=== PATIENT | male | born 1940 | race Caucasian/White ===

== ENCOUNTER → 2016-08-02 | Outpatient (CLI) | payer OTHER, MEDICARE ==
[~2016-08-02] MED LIST: IOPAMIDOL (ISOVUE 370) 75 ML BTL IV ONE
[2016-08-02 14:27] LABS: CREATININE 0.9 mg/dL (0.7-1.3); GLOMERULAR FILTRATION RATE > 60
--- NOTE | 2016-08-05 18:52 | CT ---
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 Pr etreatment aneurysm size is 7.5 x 6.9 cm. Technique: Thinly collimated multidetector helical data were obtained through the abdomen and pelvis during the administration of 100 mL of Isovue 370 IV contrast during the arterial phase of contrast enhancement. Repeat 5-mm images are obtained in venous phase. Images were then [facility] where multiplanar and three-dimensional reconstructions were performed by the ra diologist. Appropriate images were stored on PACS. Dose reduction techniques were utilized. Findings: CT Angiography: The thrombosed aneurysm sac currently measures 6.2 x 5.9 cm, decreased from the pre vious 6.6 x 6.1 cm. No evidence for endoleak in arterial or venous phase. The aorta is truly fairly d ilated, but the stent-graft has accommodated that fairly well. The limbs are not kinked. Femoral vess els are normal. Incidentally noted is critical stenosis of the proximal left SFA just after takeoff. This is unchange d. CT Abdomen and Pelvis: Lung bases are clear. Multiple hepatic cysts are unchanged. No evidence for m ass. Spleen, pancreas, adrenal glands, and kidneys are normal. No developing adenopathy or mass. Dive rticulosis is without CT evidence for diverticulitis. Prostate enlargement is again noted. No ascites or pleural effusions. Impression: Interval decrease in aneurysm sac size. No endoleak. Plan: Repeat CT angiogram follow up in May 2018, which will constitute a 4-year follow up. This was discussed with the patient today.
== END ==
LOC: FIMAGING 13:38
PROVIDERS: ATTEND Radiology Diagnostic Radiology
DX: Z09 Encounter for follow-up examination after completed treatment for conditions other than malignant neoplasm (principal); I71.4 Abdominal aortic aneurysm, without rupture

== ENCOUNTER 2017-06-03 03:11 | Emergency (ER) | payer OTHER, MEDICARE ==
--- NOTE | 2017-06-03 03:20 | CPEKG ---
Heart Rate: 88 RR Interval: 682 P-R Interval: 148 QRSD Interval: 106 QT Interval: 392 QTC Interval: 475 P [place]: 78 QRS [place]: 95 T Wave [place]: 67 EKG Severity - ABNORMAL ECG - EKG Impression: SINUS RHYTHM EKG Impression: INFERIOR INFARCT, OLD Electronically Signed By: Chasity Gerardo 04-Jun-2017 05:27:04
--- NOTE | 2017-06-03 03:21 | EDPHY ---
H & P HPI/ROS: HPI The patient presents with shortness of breath for the last 2 days, getting progressively worse, he was unable to sleep tonight so comes into the emergency department. He normally uses 2 L of oxygen at night, however he feels like he needs it all the time now. Yesterday he went to the [facility] to [facility] but could not tolerate being there because he was so short of breath so returned home. He says he has been coughing for years, however over the last 2 days the cough has been worse with sputum which is whitish which is unusual for him. As he does not have any chest pain, fever, leg swelling. He does not have any orthopnea.. He is not using any breathing treatments currently or taking any antibiotics. REVIEW OF SYSTEMS Constitutional: No fever, no chills. Eyes: No discharge. ENT: No sore throat. Cardiovascular: No chest pain, no palpitations. Respiratory: No cough, no shortness of breath. Gastrointestinal: No abdominal pain, no vomiting. Genitourinary: No hematuria. Musculoskeletal: No back pain. Skin: No rashes. Neurological: No headache. PMHx: COPD, CAD, systolic heart failure PHYSICAL General Appearance: Alert, no distress Eyes: Pupils equal and round no pallor or injection ENT, Mouth: Mucous membranes moist Respiratory: Slight tachypnea, mild retractions, diminished breath sounds throughout Cardiovascular: Regular rate and rhythm Gastrointestinal: Abdomen is soft and non-tender, no masses, bowel sounds normal Neurological: A&O, moves all extremities Skin: Warm and dry, no rashes Musculoskeletal: Neck is supple non tender Extremities: symmetrical, full range of motion Psychiatric: Patient is oriented X 3, there is no agitation Source: Patient, Family - Medical/Surgical History Hx Asthma: Yes Hx Chronic Respiratory Disease: Yes Hx Diabetes: No Hx Cardiac Disease: Yes Hx Renal Disease: No Hx Cirrhosis: No Hx Alcoholism: No Hx HIV/AIDS: No Hx Splenectomy or Spleen Trauma: No 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 Appy, COPD, HTN, Hyperlipidemia, PVD, CHF, smoker, CAD with stents, arthritis , polio - Social History Smoking Status: Current every day smoker Constitutional: Initial Vital Signs Temperature (C) 36.7 C 06/03/17 03:21 Heart Rate 88 11/14/17 03:21 Respiratory Rate 18 06/03/17 03:21 Blood Pressure 160/91 H 06/03/17 03:21 O2 Sat (%) 93 06/03/17 03:21 O2 Delivery Mode Nasal Cannula O2 (L/minute) 2 Allergies/Adverse Reactions: No Known Allergies Allergy (Verified 06/21/15 14:34) Home Medications: Medication Instructions Recorded Atorvastatin Calcium [Lipitor 40 40 mg PO DAILY #30 tab 03/18/14 mg (*)] Carvedilol [Coreg (*)] 6.25 mg PO BIDMEAL 06/07/14 Aspirin [Aspirin 81mg (*)] 81 mg PO DAILY 09/09/14 Breo Elipta Fluticasone 1 inh PUFF DAILY 09/09/14 100mcg/Vilanterol 25mcg Clopidogrel Bisulfate [Plavix (*)] 75 mg PO BID 09/09/14 Lisinopril [Zestril 5 mg (*)] 5 mg PO DAILY 09/09/14 Acetaminophen [Tylenol 325mg (*)] 650 mg PO Q4 PRN #40 tab 06/20/15 Albuterol [Proventil Inhaler HFA 2 puffs IH Q4 PRN #1 mdi 06/20/15 (*)] Azithromycin [Zithromax] 500 mg PO DAILY #3 tab 06/20/15 Cetirizine [ZyrTEC 10 mg (*)] 10 mg PO HS #30 tab 06/20/15 Cyclobenzaprine [Flexeril 10 MG 10 mg PO TID PRN #60 tab 06/20/15 (*)] Gabapentin [Neurontin 300 MG (*)] 300 mg PO HS #30 cap 06/20/15 Ipratropium/Albuterol [Combivent 1 inh IH QID #1 mdi 06/20/15 Respimat Inhal [place]] oxyCODONE IR [Oxycodone Ir (*)] 5 mg PO Q4 PRN #10 tab 06/20/15 Albuterol 17 gm IH Q4H PRN #1 aerosol 06/03/17 levOFLOXACIN [Levaquin] 500 mg PO DAILY #7 tablet 06/03/17 predniSONE [Prednisone] 40 mg PO DAILY 4 Days #16 tablet 06/03/17 Medical Decision Making - Diagnostics EKG Interpretation: EKG: Complete interpretation has been separately recorded in the [facility] archive. Summary impression: Normal sinus rhythm with Q-waves in the inferior leads Imaging Results: Chest x-ray two views shows no cardiomegaly, hyperinflation, no obvious infiltrate, interpreted by me, radiology interpretation is pending. CT chest angiogram shows no pulmonary embolism, discussed with Dr. Hammonds of Radiology. Imaging: I viewed and interpreted images myself Procedures: Bedside cardiac Ultrasound- performed and interpreted by me. Indication: Dyspnea Findings: Diminished ejection fraction, no pericardial effusion, no B lines bilaterally on lung ultrasound with a lines present, IVC is collapsible with respirations Impression: CHF without B lines, normal IVC Differential Diagnosis: 76-year-old male, history of systolic CHF, CAD, COPD presents from home with increased dyspnea over the last 1-2 days. This is associated with productive cough. Differential diagnosis includes COPD exacerbation, CHF exacerbation, ACS, less likely aortic dissection. In the emergency department, bedside ultrasound is performed which demonstrates no B lines present or blood thoracotomy IVC making COPD exacerbation most likely diagnosis. Plan for treatment with nebulizer, prednisone, antibiotics. In the emergency department, patient felt much better with the above treatments. He did have labs checked and had a D-dimer test which returned positive. BNP is slightly elevated as well. CT scan PE protocol was performed which demonstrated no pulmonary embolism or infiltrate. The patient felt well and would like to go home. He has home oxygen already in a pulse oximeter which he diligently monitors his oxygen saturations. I will discharge him with treatment with prednisone, antibiotics, albuterol. I have advised that he use 2 L of oxygen to maintain his sats in the 90-92% range and titrated it down once his saturations improved. 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 He is in agreement with this plan. - Data Points Laboratory Results: Laboratory Results 06/03/17 03:12 06/03/17 03:12 06/03/17 06/03/17 06/03/17 03:20 03:12 03:12 WBC 11.47 10^3/uL H 10^3/uL (3.80-9.50) RBC 5.16 10^6/uL 10^6/uL (4.40-6.38) Hgb 16.2 g/dL g/dL (13.7-17.5) Hct 47.9 % % (40.0-51.0) MCV 92.8 fL fL (81.5-99.8) MCH 31.4 pg pg (27.9-34.1) MCHC 33.8 g/dL g/dL (32.4-36.7) RDW 14.6 % % (11.5-15.2) Plt Count 165 10^3/uL 10^3/uL (150-400) MPV 9.6 fL fL (8.7-11.7) Neut % (Auto) 83.2 % H % (39.3-74.2) Lymph % (Auto) 6.6 % L % (15.0-45.0) [place] % (Auto) 9.4 % % (4.5-13.0) Eos % (Auto) 0.2 % L % (0.6-7.6) Baso % (Auto) 0.3 % % (0.3-1.7) Nucleat RBC Rel Count 0.0 % % (0.0-0.2) Absolute Neuts (auto) 9.53 10^3/uL H 10^3/uL (1.70-6.50) Absolute Lymphs (auto) 0.76 10^3/uL L 10^3/uL (1.00-3.00) Absolute Monos (auto) 1.08 10^3/uL H 10^3/uL (0.30-0.80) Absolute Eos (auto) 0.02 10^3/uL L 10^3/uL (0.03-0.40) Absolute Basos (auto) 0.04 10^3/uL 10^3/uL (0.02-0.10) Absolute Nucleated RBC 0.00 10^3/uL 10^3/uL (0-0.01) Immature Gran % 0.3 % % (0.0-1.1) Immature Gran # 0.04 10^3/uL 10^3/uL (0.00-0.10) D-Dimer 1.92 ug/mLFEU H ug/mLFEU (0.00-0.50) Sodium 146 mEq/L H mEq/L (134-144) Potassium 3.9 mEq/L mEq/L (3.5-5.2) Chloride 102 mEq/L mEq/L (97-110) Carbon Dioxide 32 mEq/l H mEq/l (22-31) Anion Gap 12 mEq/L mEq/L (8-16) BUN 18 mg/dL mg/dL (7-23) Creatinine 0.9 mg/dL mg/dL (0.7-1.3) Estimated GFR > 60 Glucose 112 mg/dL H mg/dL (70-100) Calcium 8.9 mg/dL mg/dL (8.5-10.4) Troponin I 0.014 ng/mL ng/mL (0.000-0.034) NT-Pro-B Natriuret Pep 515 pg/mL H pg/mL (0-450) Medications Given: Discontinued Medications Albuterol/Ipratropium (Duoneb) 3 ml IH EDNOW ONE Stop: 06/03/17 03:56 Last Admin: 06/03/17 04:06 Dose: 3 ml Levofloxacin (Levaquin) 750 mg PO EDNOW ONE PRN Reason: Protocol Stop: 06/03/17 03:56 Last Admin: 06/03/17 04:06 Dose: 750 mg Prednisone (Prednisone) 60 mg PO EDNOW ONE Stop: 06/03/17 03:56 Last Admin: 06/03/17 04:06 Dose: 60 mg Departure - Departure Disposition: Home, Routine, Self-Care Clinical Impression: Chronic obstructive pulmonary disease with acute exacerbation Condition: Good Instructions: COPD (Chronic Obstructive Pulmonary Disease) (ED) Additional Instructions: Please make sure to take the medications as prescribed. You will need to wear 2 L of oxygen until your feeling better. I recommend that you follow up with your primary care doctor in 1-2 days for recheck of your oxygen level and your lungs. Referrals: Hollie Teran MD [Primary Care Provider] - As per Instructions Prescriptions: Albuterol 17 gm IH Q4H PRN #1 aerosol PRN Reason: shortness of breath levOFLOXACIN [Levaquin] 500 mg PO DAILY #7 tablet predniSONE [Prednisone] 40 mg PO DAILY 4 Days #16 tablet
[2017-06-03 03:26] VITALS: TEMP 98.1
[2017-06-03] MEDS ORDERED: IPRATROPIUM/ALBUTEROL 3 ML DEYVIAL IH ONE (03:55)
[2017-06-03] MEDS ORDERED: predniSONE 20 MG TAB PO ONE (03:55)
[2017-06-03 03:57] LABS: ANION GAP 12 mEq/L (8-16); CALCIUM 8.9 mg/dL (8.5-10.4); CARBON DIOXIDE 32 mEq/l (22-31); CHLORIDE 102 mEq/L (97-110); CREATININE 0.9 mg/dL (0.7-1.3); GLOMERULAR FILTRATION RATE > 60; GLUCOSE 112 mg/dL (70-100); POTASSIUM 3.9 mEq/L (3.5-5.2); SODIUM 146 mEq/L (134-144)
[2017-06-03 04:05] LABS: % IMMATURE GRANULYOCYTES 0.3 % (0.0-1.1); ABSOLUTE IMMATURE GRANULOCYTES 0.04 10^3/uL (0.00-0.10); ADD DIFF? NO; ADD MORPH? NO; ADD SCAN? NO; ATYPICAL LYMPHOCYTE FLAG 0 (0-99); FRAGMENT RBC FLAG 0 (0-99); HEMATOCRIT 47.9 % (40.0-51.0); HEMOGLOBIN 16.2 g/dL (13.7-17.5); LEFT SHIFT FLG 0 (0-99); LIPEMIA HEMOLYSIS FLAG 90 (0-99); MEAN CELL HEMOGLOBIN 31.4 pg (27.9-34.1); MEAN CELL HEMOGLOBIN CONCENTR. 33.8 g/dL (32.4-36.7); MEAN CELL VOLUME 92.8 fL (81.5-99.8); MEAN PLATELET VOLUME 9.6 fL (8.7-11.7); PLATELET CLUMPS FLAG 20 (0-99); PLATELET COUNT 165 10^3/uL (150-400); RED BLOOD CELL COUNT 5.16 10^6/uL (4.40-6.38); RED CELL DISTRIBUTION WIDTH 14.6 % (11.5-15.2)
[2017-06-03 04:09] LABS: TROPONIN I 0.014 ng/mL (0.000-0.034)
[2017-06-03] MEDS ORDERED: IOPAMIDOL (ISOVUE 370) 100 ML BTL IV ONE (05:05)
[2017-06-03 06:03] VITALS: BP 107/65; PULSE 80; RESP 19; O2SAT 93
== END 2017-06-03 06:18 | disposition home or self-care (01) ==
DX: J44.1 Chronic obstructive pulmonary disease with (acute) exacerbation (principal); I25.10 Atherosclerotic heart disease of native coronary artery without angina pectoris; I11.0 Hypertensive heart disease with heart failure; I50.9 Heart failure, unspecified; F17.200 Nicotine dependence, unspecified, uncomplicated; Z79.82 Long term (current) use of aspirin; Z95.5 Presence of coronary angioplasty implant and graft
CPT/HCPCS: 71020; 71275; 93005; 99285; Q9967

== ENCOUNTER 2017-08-16 12:36 | Inpatient (IN) | payer OTHER, MEDICARE ==
--- NOTE | 2017-08-16 12:53 | CPEKG ---
Heart Rate: 152 RR Interval: 395 P-R Interval: 55 QRSD Interval: 98 QT Interval: 338 QTC Interval: 538 P [place]: 0 QRS [place]: 101 T Wave [place]: 258 EKG Severity - ABNORMAL ECG - EKG Impression: RIGHT AXIS DEVIATION EKG Impression: A flutter with 2-1 block Electronically Signed By: Zeke Lockhart 16-Aug-2017 13:04:19
[2017-08-16] MEDS ORDERED: methylPREDNISolone SOD SUCC 125 MG/2 ML VIAL IVP ONE (13:08)
[2017-08-16] MEDS ORDERED: IPRATROPIUM/ALBUTEROL 3 ML DEYVIAL IH ONE (13:08)
[2017-08-16] MEDS ORDERED: DILTIAZEM 25 MG/5 ML VIAL IVP ONE (13:11)
--- NOTE | 2017-08-16 13:15 | EDPHY ---
H & P Stated Complaint: SOB and chest discomfort starting Time Seen by Provider: 08/16/17 13:00 HPI/ROS: CHIEF COMPLAINT: Shortness of breath HISTORY OF PRESENT ILLNESS: The patient is a 76-year-old man with a history of COPD who wears oxygen at night also a history of CHF with ejection fraction 20% , coronary artery disease with 5 stents and a previously repaired AAA. Patient states that over the last 3 days he has become increasingly short of breath and hypoxic at home without his oxygen. His states that they have been trying to get a nebulizer for months but were unable to until yesterday. They used it once this morning with moderate improvement. He denies recent fevers or cold symptoms. He denies chest pain. He is tachycardic and denies ever having had an arrhythmia before. He has not had any leg pain or swelling. No edema. REVIEW OF SYSTEMS: Constitutional: denies: chills, fever, recent illness, recent injury EENTM: denies: blurred vision, double vision, nose congestion Respiratory: See HPI Cardiac: denies: chest pain, irregular heart rate, lightheadedness, palpitations Gastrointestinal/Abdominal: denies: abdominal pain, diarrhea, nausea, vomiting, blood streaked stools Genitourinary: denies: dysuria, frequency, hematuria, pain Musculoskeletal: denies: joint pain, muscle pain Skin: denies: lesions, rash, jaundice, bruising Neurological: denies: headache, numbness, paresthesia, tingling, dizziness, weakness Hematologic/Lymphatic: denies: blood clots, easy bleeding, easy bruising Immunologic/allergic: denies: HIV/AIDS, transplant EXAM: GENERAL: Well-appearing, well-nourished and in no acute distress. HEAD: Atraumatic, normocephalic. EYES: Pupils equal round and reactive to light, extraocular movements intact, sclera anicteric, conjunctiva are normal. ENT: TMs normal, nares patent, oropharynx clear without exudates. Moist mucous membranes. NECK: Normal range of motion, supple without lymphadenopathy or JVD. LUNGS: Bilateral expiratory wheezes, no crackles HEART: Tachycardic but regular rhythm without murmurs, rubs or gallops. ABDOMEN: Soft, nontender, normoactive bowel sounds. No guarding, no rebound. No masses appreciated. BACK: No CVA tenderness, no spinal tenderness, step-offs or deformities EXTREMITIES: Normal range of motion, no pitting or edema. No clubbing or cyanosis. No edema NEUROLOGICAL: Cranial nerves II through XII grossly intact. Normal speech, normal gait. 5/5 strength, normal movement in all extremities, normal sensation PSYCH: Normal mood, normal affect. SKIN: Warm, dry, normal turgor, no visible rashes or lesions. 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 Appy, COPD, HTN, Hyperlipidemia, PVD, CHF, smoker, CAD with stents, arthritis , polio - Social History Smoking Status: Current every day smoker Alcohol Use: Sober Constitutional: Initial Vital Signs Temperature (C) 36.5 C 08/16/17 12:40 Heart Rate 147 H 08/16/17 12:40 Respiratory Rate 20 08/16/17 12:40 Blood Pressure 115/93 H 08/16/17 12:40 O2 Sat (%) 85 L 08/16/17 12:40 O2 Delivery Mode Nasal Cannula O2 (L/minute) 2 Allergies/Adverse Reactions: No Known Allergies Allergy (Verified 08/16/17 12:39) Home Medications: Medication Instructions Recorded Aspirin EC [Aspirin EC 81 mg (*)] 81 mg PO DAILY@08/16/17 Atorvastatin Calcium [Lipitor 80 80 mg PO DAILY@08/16/17 mg] Carvedilol [Coreg (*)] 6.25 mg PO BIDMEAL 08/16/17 Docusate Sodium [Colace 100 MG (*)] 100 mg PO DAILY@08/16/17 Finasteride [Propecia] 1 mg PO DAILY@08/16/17 Ipratropium/Albuterol [Duoneb (*)] 3 ml IH TID PRN 08/16/17 Lisinopril [Zestril 10 mg (*)] 10 mg PO DAILY@08/16/17 Sertraline HCl [Zoloft 50mg (*)] 50 mg PO DAILY@12 08/16/17 Medical Decision Making - Diagnostics EKG Interpretation: An EKG obtained and was read and documented in trace view. Please see trace view for full reading and report. Atrial flutter with 2-1 block Imaging Results: Imaging Impressions Chest X-Ray 08/16/17 13:09 Impression: COPD/emphysema with bronchitis, similar to the previous study. Imaging: Discussed imaging studies w/ house calls nurse Radiologist ED Course/Re-evaluation: The patient's x-ray does not look edematous. He does not have extremity edema. He persists in having wheezing and heart rate of 150. Will treat him with another neb. 2:25 p.m. the patient still is feeling about the same. He has received 2 nebs as well as some diltiazem. His pressure dropped with diltiazem and required a 500 cc bolus. He has been mentating well throughout. I will admit to the hospital service. I suspect that the new a flutter is secondary to the COPD exacerbation. 2:55 p.m. I discussed the case with Dr. Deluna who will admit to the medical service. Differential Diagnosis: Partial list of the Differential diagnosis considered include but were not limited to; COPD exacerbation, atrial flutter, SVT, pulmonary edema and although unlikely based on the history and physical exam, I also considered acute coronary disease, dissection. - Data Points Laboratory Results: Laboratory Results 08/16/17 13:00 08/16/17 13:00 08/16/17 08/16/17 08/16/17 13:00 13:00 13:00 WBC 5.85 10^3/uL 10^3/uL (3.80-9.50) RBC 4.67 10^6/uL 10^6/uL (4.40-6.38) Hgb 14.7 g/dL g/dL (13.7-17.5) Hct 44.4 % % (40.0-51.0) MCV 95.1 fL fL (81.5-99.8) MCH 31.5 pg pg (27.9-34.1) MCHC 33.1 g/dL g/dL (32.4-36.7) RDW 15.5 % H % (11.5-15.2) Plt Count 185 10^3/uL 10^3/uL (150-400) MPV 10.1 fL fL (8.7-11.7) Neut % (Auto) 74.4 % H % (39.3-74.2) Lymph % (Auto) 12.8 % L % (15.0-45.0) [place] % (Auto) 10.4 % % (4.5-13.0) Eos % (Auto) 1.7 % % (0.6-7.6) Baso % (Auto) 0.2 % L % (0.3-1.7) Nucleat RBC Rel Count 0.0 % % (0.0-0.2) Absolute Neuts (auto) 4.35 10^3/uL 10^3/uL (1.70-6.50) Absolute Lymphs (auto) 0.75 10^3/uL L 10^3/uL (1.00-3.00) Absolute Monos (auto) 0.61 10^3/uL 10^3/uL (0.30-0.80) Absolute Eos (auto) 0.10 10^3/uL 10^3/uL (0.03-0.40) Absolute Basos (auto) 0.01 10^3/uL L 10^3/uL (0.02-0.10) Absolute Nucleated RBC 0.00 10^3/uL 10^3/uL (0-0.01) Immature Gran % 0.5 % % (0.0-1.1) Immature Gran # 0.03 10^3/uL 10^3/uL (0.00-0.10) PT 13.2 SEC SEC (12.0-15.0) INR 0.98 (0.83-1.16) APTT 34.3 SEC SEC (23.0-38.0) Sodium 148 mEq/L H mEq/L (135-145) Potassium 4.0 mEq/L mEq/L (3.5-5.2) Chloride 107 mEq/L mEq/L (97-110) Carbon Dioxide 29 mEq/l mEq/l (22-31) Anion Gap 12 mEq/L mEq/L (8-16) BUN 24 mg/dL H mg/dL (7-23) Creatinine 1.0 mg/dL mg/dL (0.7-1.3) Estimated GFR > 60 Glucose 109 mg/dL H mg/dL (70-100) Calcium 8.9 mg/dL mg/dL (8.5-10.4) Troponin I < 0.012 ng/mL ng/mL (0.000-0.034) NT-Pro-B Natriuret Pep 3610 pg/mL H pg/mL (0-450) Microbiology Results: MICROBIOLOGY 08/16/17 13:40 Nasal, Sinus - Swab Respiratory Panel (PCR) - Final Coronavirus Hku1 Detected Medications Given: Albuterol/Ipratropium (Duoneb) 3 ml IH QID SHARONDA Stop: 02/12/18 15:59 Last Admin: 08/16/17 20:49 Dose: Not Given Carvedilol (Coreg) 6.25 mg PO [facility]MEAL [facility] Stop: 02/12/18 17:59 Last Admin: 08/16/17 19:14 Dose: 6.25 mg Discontinued Medications Albuterol (Proventil Neb) 3 ml IH EDNOW ONE Stop: 08/16/17 13:51 Last Admin: 08/16/17 14:20 Dose: 3 ml Albuterol/Ipratropium (Duoneb) 3 ml IH EDNOW ONE Stop: 08/16/17 13:09 Last Admin: 08/16/17 13:31 Dose: 3 ml Diltiazem HCl (Cardizem 25 Mg/5 Ml Vial) 10 mg IVP EDNOW ONE Stop: 08/16/17 13:12 Last Admin: 08/16/17 13:31 Dose: 10 mg Enoxaparin Sodium (Lovenox) 60 mg SC EDNOW ONE Stop: 08/16/17 14:27 Last Admin: 08/16/17 15:11 Dose: 60 mg Furosemide (Lasix Injection) 20 mg IVP ONCE ONE Stop: 08/16/17 18:02 Last Admin: 08/16/17 19:14 Dose: 20 mg Sodium Chloride (Ns) 500 mls @ 1,000 mls/hr IV EDNOW ONE PRN Reason: Protocol Stop: 08/16/17 14:19 Last Admin: 08/16/17 14:12 Dose: 500 mls Diltiazem HCl 125 mg/ Dextrose 125 mls @ 0 mls/hr IV EDNOW ONE; As Directed PRN Reason: Protocol Stop: 08/16/17 17:49 Last Admin: 08/16/17 18:07 Dose: 125 mls Methylprednisolone Sodium Succinate (Solu-Medrol) 125 mg IVP EDNOW ONE Stop: 08/16/17 13:09 Last Admin: 08/16/17 13:31 Dose: 125 mg Departure - Departure Disposition: [facility] Inpatient Acute Clinical Impression: Chronic obstructive pulmonary disease with acute exacerbation Atrial flutter Qualifiers: Atrial flutter type: typical Qualified Code(s): I48.3 - Typical atrial flutter Condition: Fair
[2017-08-16 13:18] LABS: PLATELET COUNT 185 10^3/uL (150-400)
[2017-08-16 13:24] LABS: INR 0.98 (0.83-1.16); PROTIME(PATIENT) 13.2 SEC (12.0-15.0)
[2017-08-16] MEDS ORDERED: ALBUTEROL 3 ML DEYVIAL IH ONE (13:50)
[2017-08-16] MEDS ORDERED: NS 500 ML IV ONE (13:50)
[2017-08-16] MEDS ORDERED: ENOXAPARIN 60 MG/0.6 ML SYR SC ONE (14:26)
[2017-08-16] MEDS ORDERED: ACETAMINOPHEN 325 MG TAB PO PRN (14:58)
[2017-08-16] MEDS ORDERED: ONDANSETRON 4 MG/2 ML VIAL IVP PRN (14:58)
[2017-08-16] MEDS: IPRATROPIUM/ALBUTEROL 3 ML DEYVIAL IH SCH ×2 (16:50→20:49)
[2017-08-16] MEDS ORDERED: DILTIAZEM 125 MG in D5W 125 ML IV ONE (17:48)
--- NOTE | 2017-08-16 17:52 | PDGENHP ---
History and Physical History and Physical: CC: Worsening dyspnea for 2-3 days HISTORY: This patient with both heart and lung disease still smoking comes into the ER with worsening dyspnea for 2-3 days. He has chronic exertional dyspnea and uses oxygen 2 L at night. At this point he has progressed to rest dyspnea and says it is hard to walk a half way across the room. He has an uneasy feeling like his heart is doing something different but does not have any discomfort or anything that sounds like angina. There is no pleuritic pain and there is no pain or swelling in his legs. He has no cough, fevers, upper respiratory symptoms, abdominal discomfort or bloating, nausea, sweats. He has a history of COPD and still smokes 3/4 pack cigarettes daily He has a history of coronary disease with 5 stents. He has a history of atrial fibrillation and had been cardioverted in the past, but is not on anticoagulants and I cannot discern the reason why. He is on some carvedilol. He cannot recall when his last stress test or his last echocardiogram were but it sounds like he has poor systolic function. The only echocardiogram I have is from several years ago here showing an EF of 15-20%. 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 I have reviewed the list and ordered appropriate medicines. PHYSICAL EXAMINATION: Vital Signs: Heart rate at 150, stable blood pressure, respirations without fast no fever Distribution Tech: Rapid atrial flutter Examination: General: alert, oriented, good mentation, relaxed Skin: warm, dry, good color, no rash no cyanosis HEENT: normal Neck: no mass JVD is present Resps: relaxed Lungs: clear breath sounds though they are extremely diminished Heart: His pulse is rapid and regular, am actually unable to auscultate his heart tones Abdomen: soft, nondistended, nontender, +BS, no mass Upper Extremities: normal Lower Extremities: edema 1+ pitting at both ankles , warm No Bleeding or bruising Neurologic: normal speech/language, normal md ophthalmologist, no focal weakness IV site: looks normal LABORATORY DATA: CBC and basic met panel are unremarkable BNP is at 3000 Troponin normal coagulation studies normal RADIOLOGY STUDIES: Chest x-ray shows evidence of COPD and possible cephalization of blood vessels but no effusions no alveolar edema or infiltrates; this is my personal review of his chest x-ray images in the ER 12 LEAD EKG: My reading of tracing in the ER is rapid atrial flutter at 1:50 a.m. with no ischemic or injury pattern ASSESSMENT: -acute symptomatic hypoxemic respiratory failure -rapid atrial flutter with a history of atrial fibrillation, on beta-lilian but no anticoagulant, reason for and no anticoagulation is unknown -acute congestive heart failure, systolic and right-sided; history of ischemic cardiomyopathy with stents, last echocardiogram on record here several years ago ejection fraction 15-20% unclear when his last outpatient echo was with Dr. Orta and [place] -CAD [address] Orta, no symptoms or EKG signs of ischemia specifically at this point, unclear when his last stress test was but it sounds like quite sometime ago -COPD with chronic hypoxemic respiratory failure on nocturnal oxygen at home; probably stable or near stable at this time could not rule out mild exacerbation -ongoing tobacco abuse Apparently the patient was given a 10 mg bolus of diltiazem in the ER and had a significant decrease in blood pressure with that. Will need to watch his blood pressure very closely and I believe that his cardiomyopathy is probably causing his shortness of breath in the setting of his rapid atrial flutter. He will clearly need rate controlled he will tolerate low blood pressures. I will start with gentle diltiazem drip and monitor closely change plan if we do not have success controlling his rate and blood pressure. A repeat echocardiogram to look at his right and left heart function and pressures will be important, and I will review with Cardiology as I think is probably reasonable be looking at a myocardial perfusion imaging stress test here as well. This would have to be a Lexiscan as he would be unable to walk. I did address tobacco cessation with the patient and not clear that he is ready to engage in that at this point. Will continue counseling while he is here I did discuss with him and his and they both would like him to be a full cor at this time. They did seem to comprehend this discussion well. PLANS: -inpatient admission to PCU for this patient at high risk with potential for multiple complications and requiring multiple studies ongoing monitoring -cardiology consultation -attempt rate control with diltiazem drip watching his blood pressure very closely -continue his beta-lilian -review with Cardiology Clinic when available why he is not on anticoagulant -statin therapy -he will be on full dose anticoagulation for his a flutter at this time which should cover him for DVT prophylaxis as well I have reviewed the patient's case in detail with Dr. Zeke Lockhart I have reviewed the patient's past medical records as part of this assessment, including previous hospital admission records lab tests and EKGs
[2017-08-16] MEDS ORDERED: DILTIAZEM 125 MG in D5W 125 ML IV SCH (18:00)
[2017-08-16] MEDS ORDERED: IPRATROPIUM/ALBUTEROL 3 ML DEYVIAL IH PRN (18:00)
[2017-08-16] MEDS ORDERED: FUROSEMIDE 20 MG/2 ML VIAL IVP ONE (18:01)
--- NOTE | 2017-08-16 18:02 | PDGENHP ---
History and Physical History and Physical: CC: Worsening dyspnea for 2-3 days HISTORY: This patient with both heart and lung disease still smoking comes into the ER with worsening dyspnea for 2-3 days. He has chronic exertional dyspnea and uses oxygen 2 L at night. At this point he has progressed to rest dyspnea and says it is hard to walk a half way across the room. He has an uneasy feeling like his heart is doing something different but does not have any discomfort or anything that sounds like angina. There is no pleuritic pain and there is no pain or swelling in his legs. He has no cough, fevers, upper respiratory symptoms, abdominal discomfort or bloating, nausea, sweats. He has a history of COPD and still smokes 3/4 pack cigarettes daily He has a history of coronary disease with 5 stents. He has a history of atrial fibrillation and had been cardioverted in the past, but is not on anticoagulants and I cannot discern the reason why. He is on some carvedilol. He cannot recall when his last stress test or his last echocardiogram were but it sounds like he has poor systolic function. The only echocardiogram I have is from several years ago here showing an EF of 15-20%. 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 I have reviewed the list and ordered appropriate medicines. PHYSICAL EXAMINATION: Vital Signs: Heart rate at 150, stable blood pressure, respirations without fast no fever Car Sweeper: Rapid atrial flutter Examination: General: alert, oriented, good mentation, relaxed Skin: warm, dry, good color, no rash no cyanosis HEENT: normal Neck: no mass JVD is present Resps: relaxed Lungs: clear breath sounds though they are extremely diminished Heart: His pulse is rapid and regular, am actually unable to auscultate his heart tones Abdomen: soft, nondistended, nontender, +BS, no mass Upper Extremities: normal Lower Extremities: edema 1+ pitting at both ankles , warm No Bleeding or bruising Neurologic: normal speech/language, normal 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 with no ischemic or injury pattern ASSESSMENT: -acute symptomatic hypoxemic respiratory failure -rapid atrial flutter with a history of atrial fibrillation, on beta-lilian but no anticoagulant, reason for and no anticoagulation is unknown -acute congestive heart failure, systolic and right-sided; history of ischemic cardiomyopathy with stents, last echocardiogram on record here several years ago ejection fraction 15-20% unclear when his last outpatient echo was with Dr. Orta and [place] -CAD [address] Orta, no symptoms or EKG signs of ischemia specifically at this point, unclear when his last stress test was but it sounds like quite sometime ago -COPD with chronic hypoxemic respiratory failure on nocturnal oxygen at home; probably stable or near stable at this time could not rule out mild exacerbation -ongoing tobacco abuse Apparently the patient was given a 10 mg bolus of diltiazem in the ER and had a significant decrease in blood pressure with that. Will need to watch his blood pressure very closely and I believe that his cardiomyopathy is probably causing his shortness of breath in the setting of his rapid atrial flutter. He will clearly need rate controlled he will tolerate low blood pressures. I will start with gentle diltiazem drip and monitor closely change plan if we do not have success controlling his rate and blood pressure. A repeat echocardiogram to look at his right and left heart function and pressures will be important, and I will review with Cardiology as I think is probably reasonable be looking at a myocardial perfusion imaging stress test here as well. This would have to be a Lexiscan as he would be unable to walk. I did address tobacco cessation with the patient and not clear that he is ready to engage in that at this point. Will continue counseling while he is here I did discuss with him and his and they both would like him to be a full cor at this time. They did seem to comprehend this discussion well. PLANS: -inpatient admission to PCU for this patient at high risk with potential for multiple complications and requiring multiple studies ongoing monitoring -cardiology consultation -attempt rate control with diltiazem drip watching his blood pressure very closely -will give one dose of lasix iv now and reassess fluid status and dyspnea in am (not on diuretic at home) -continue his beta-lilian -review with Cardiology Clinic when available why he is not on anticoagulant -statin therapy -he will be on full dose anticoagulation for his a flutter at this time which should cover him for DVT prophylaxis as well -ongoing smoking counseling -full cor per his wish I have reviewed the patient's case in detail with Dr. Zeke Lockhart I have reviewed the patient's past medical records as part of this assessment, including previous hospital admission records lab tests and EKGs
--- NOTE | 2017-08-16 18:29 | PDMN ---
Medical Necessity Medical necessity: C/M review: est. > 2 MN LOS for eval and TX of acute - rapid atrial flutter, systolic and right sided CHF, symptomatic hypoxemic respiratory failure, requiring IV Lasix x 1, planned echocardiogram, Cardiology cvonsult, ongoing IV Dilitazem infusion, Duonebs, cardiac monitoring, pulse oximetry, supplemental O2, comorbid CAD with [address], COPD with chronic hypoxemic respiratory failure on nocturnal o2 at home, ongoing tobacco abuse, ischemic cardiomyopathy with EF 15-20%, history of atrial fibrillation per H/P.
[2017-08-16] MEDS: CARVEDILOL 6.25 MG TAB PO SCH (19:14)
[2017-08-17 04:23] LABS: PLATELET COUNT 184 10^3/uL (150-400)
--- NOTE | 2017-08-17 05:31 | CPEKG ---
Heart Rate: 129 RR Interval: 465 QRSD Interval: 106 QT Interval: 341 QTC Interval: 500 QRS [place]: 86 EKG Severity - ABNORMAL ECG - EKG Impression: ATRIAL FLUTTER, A-RATE 288 EKG Impression: INCOMPLETE RIGHT BUNDLE BRANCH BLOCK EKG Impression: LOW VOLTAGE IN FRONTAL LEADS EKG Impression: NONSPECIFIC T ABNORMALITIES, LATERAL LEADS EKG Impression: PROLONGED QT INTERVAL EKG Impression: COMPARED WITH 07/22/2017 NO SIGNIFICANT CHANGE Electronically Signed By: Delores Rosales 17-Aug-2017 13:14:58
[2017-08-17] MEDS: IPRATROPIUM/ALBUTEROL 3 ML DEYVIAL IH SCH (05:34)
[2017-08-17] MEDS: LEVALBUTEROL 1.25 MG/3 ML DEYVIAL IH PRN ×2 (06:06→14:17)
[2017-08-17] MEDS ORDERED: ENOXAPARIN 60 MG/0.6 ML SYR SC SCH (09:00)
--- NOTE | 2017-08-17 10:40 | ECHO ---
[email or web address] [address] [address] Main: [phone] Fax: Transthoracic Echocardiogram Name: MARCEL ROGERS MR#: [id number] Study Date: 08/17/2017 Study Time: 09:13 AM Date of : 1940 Age: 76 year(s) Height: 165.1 cm (65 in.) Weight: 58.97 kg (130 lb.) BSA: 1.65 m2 Gender: Male Examination: Echo Indication: cardiomyopathy and a flutter Image Quality: Adequate Contrast: Requested by: Jaspal Deluna BP: 108 mmHg/79 mmHg Heart Rate: 138 bpm Rhythm: Atrial flutter Indication: cardiomyopathy and a flutter Procedure Staff Set Up Mechanic Stamping Machines: Rosaline Gunderson [facility] Reading Physician: Delores Rosales Requesting Provider: Conclusions: Normal size left ventricle. Mild to moderate LVH. Mildly reduced systolic LV function. EF is 40 %. Mild global hypokinesis. Intermittent septal dyskinesis. Normal size right ventricle. Normal RV function. The left atrium is severely dilated. The right atrium is mildly to moderately dilated. Trivial tricuspid valve regurgitation. Trivial pericardial effusion. Compared with 03/16/2014 ejection fraction has improved from 15-20%. Measurements: Chambers Valvular Assessment AV/MV Valvular Assessment TV/PV Normal Normal Normal Name Value Range Name Value Range Name Value Range Ao Ester (MM): 3.3 cm (2.2 cm-3.7 AV Vmax: 1.10 m/s (1 m/s-1.7 PV Vmax: 0.67 m/s (0.6 m/s-0.9 cm) m/s) m/s) IVSd (2D): 1.3 cm (0.6 cm-1.1 AV maxP mmHg ( - ) PV PGmax: 2 mmHg ( - ) cm) LVOT Vmax: 0.73 m/s (0.7 m/s-1.1 LVDd (2D): 4.5 cm (4.2 cm-5.9 m/s) cm) MV E Vmax: 0.85 m/s ( - ) LVDs (2D): 3.7 cm (2.1 cm-4 MV A Vmax: 1.05 m/s ( - ) cm) MV E/A: 0.81 ( - ) LVPWd (2D): 1.0 cm (0.6 cm-1 cm) LVEF (BP): 40 % (>=55 %) RVDd(2D): 2.4 cm (1.9 cm-3.8 cmmm) Patient: MARCEL ROGERS Study Date: 08/17/2017 Page 1 of 2 09:13 AM Continued Measurements: Chambers Valvular Assessment TV/PV Name Value Name Value LADs Lon.4 cm CVP (est.): 10 mmHg LA Area: 26.2 cm2 LA Volume: 75 ml LA Volume Index: 45.5 ml/m2 TAPSE: 1.1 cm RA Area: 21.8 cm2 Additional Vessels Name Value Ao Ascendin.0 cm Findings: Left Ventricle: Normal size left ventricle. Mild to moderate LVH. Mildly reduced systolic LV function. EF is 40 %. Mild global hypokinesis. Intermittent septal dyskinesis. Right Ventricle: Normal size right ventricle. Normal RV function. Left Atrium: The left atrium is severely dilated. Right Atrium: The right atrium is mildly to moderately dilated. Mitral Valve: The mitral valve is normal in appearance and function. There is mild thickening of the mitral valve leaflets. Mild mitral annular calcification. Trivial mitral valve regurgitation. No mitral stenosis is present. Aortic Valve: The aortic valve is tri-leaflet and functions normally. There is no significant aortic valve regurgitation. No aortic valve stenosis is present. Tricuspid Valve: The tricuspid valve is normal in appearance and function. Trivial tricuspid valve regurgitation. Pulmonary artery pressure is not obtained due to inadequate TR jet. Pulmonic Valve: Pulmonary valve not well visualized. Aorta: Normal size aortic root measuring 3.3 cm. Normal size ascending aorta measuring 3.0 cm. IVC: The IVC is dilated. Pericardium: Trivial pericardial effusion. (No Signature Object) Patient: MARCEL ROGERS Study Date: 08/17/2017 Page 2 of 2 09:13 AM [id number]
[2017-08-17] MEDS: DOCUSATE SODIUM 100 MG CAP PO SCH (10:58)
[2017-08-17] MEDS: NICOTINE 14 MG/24 HR PATCH TD SCH (10:58)
[2017-08-17] MEDS: ASPIRIN EC 81 MG TAB PO SCH (10:58)
[2017-08-17] MEDS: SERTRALINE HCL 50 MG TAB PO SCH (10:59)
--- NOTE | 2017-08-17 11:44 | CPEKG ---
Heart Rate: 135 RR Interval: 444 QRSD Interval: 108 QT Interval: 360 QTC Interval: 540 QRS [place]: 71 T Wave [place]: 242 EKG Severity - ABNORMAL ECG - EKG Impression: ATRIAL FLUTTER WITH 2:1 AV BLOCK EKG Impression: IRBBB AND LPFB EKG Impression: NONSPECIFIC T ABNORMALITIES, LATERAL LEADS EKG Impression: PROLONGED QT INTERVAL EKG Impression: Compared with 08/09/2017 at 520 minutes a.m. no significant change Electronically Signed By: Delores Rosales 17-Aug-2017 13:14:00
[2017-08-17] MEDS ORDERED: NITROGLYCERIN 0.4 MG BTL SL PRN (11:45)
[2017-08-17] MEDS: ATORVASTATIN CALCIUM 40 MG TAB PO SCH (12:00)
[2017-08-17] MEDS ORDERED: DIGOXIN 500 MCG/2 ML AMP IVP ONE ×2 (14:05→20:00)
[2017-08-17] MEDS ORDERED: FUROSEMIDE 20 MG/2 ML VIAL IVP ONE (14:15)
[2017-08-17] MEDS: LISINOPRIL 10 MG TAB PO SCH (14:49)
[2017-08-17] MEDS: Finasteride [Propecia] 1 MG PO SCH (15:02)
--- NOTE | 2017-08-17 15:05 | GCON ---
[f rep st] CONSULTATION DATE OF CONSULTATION: 08/17/2017 PRIMARY COMPANY PILOT: Robert Orta MD CHIEF COMPLAINT: Atrial flutter. HISTORY OF PRESENT ILLNESS: We were asked by Dr. Talbert to visit with the patient. He is a 76-year -old male with a history of coronary disease, status post multivessel PCI, atrial flutter with histor y of cardioversion in 2013, mixed cardiomyopathy, COPD on oxygen, and ongoing tobacco abuse. He was admitted through the ER on August 16 with increasing dyspnea and minimally productive cough. He was diagnosed with coronavirus. He was found to be in atrial flutter with rapid ventricular response an d we were asked to consult. Upon my evaluation, he reports feeling dyspneic. He has intermittent chest tightness. He has not pa rticularly noticed palpitations. He has not had syncope. REVIEW OF SYSTEMS: Full 10-point review of systems was performed and is detailed above. Also, he do es endorse dysphagia and a sensation that food is getting "stuck in a pocket in his esophagus" almost every time he eats. This causes him to cough. He has never had a stroke or TIA. He has never had any major bleeding issues other than some cutaneous bleeding when previously on anticoagulation for h is atrial arrhythmias. He cannot recall which anticoagulant he was on. The cutaneous bleeding was i n the setting of a skin biopsy. ALLERGIES: No known drug allergies. PAST MEDICAL HISTORY: 1. Coronary disease with a history of multivessel PCI. The most recent was in 2014 with interventio n of the RCA and the LAD. He has also had circumflex intervention prior to that. 2. Paroxysmal atrial flutter. 3. COPD, on intermittent oxygen. 4. Ongoing tobacco use. 5. Abdominal aortic aneurysm status post endograft repair in 2014. OUTPATIENT MEDICATIONS: Aspirin 81 mg daily, Lipitor 80 mg daily, Coreg 6.25 mg twice daily, Propeci a, DuoNeb, lisinopril 10 mg daily, and Zoloft. SOCIAL HISTORY: The patient is . His is at bedside. He continues to smoke 3/4 of a pac k of cigarettes daily and is not sure he would like to quit. FAMILY HISTORY: Not applicable to the current case. PHYSICAL EXAM: VITAL SIGNS: Blood pressure is currently 84/55 and with a high of 121/88. Heart rat e as high as 150, currently 120s to 130, 95% on 3 L nasal cannula, respiratory rate is 27. GENERAL: Ill-appearing elderly male who is visibly dyspneic. CARDIOVASCULAR: JVP is 12 cm of water. Regula r tachycardic rhythm without murmur, S3, or rub. LUNGS: Diffuse inspiratory and expiratory wheezes. ABDOMEN: Soft and nontender without obvious bruits, masses, thyromegaly. EXTREMITIES: Warm and w ell perfused without cyanosis, clubbing, edema. NEURO: Alert and oriented x3 without gross focal ne urologic deficits. LABORATORY DATA: White count 6.4, hematocrit 39.1, and platelets are 184. INR 0.98. Sodium 144, po tassium 4.5, chloride 105, bicarb 30, BUN 24, creatinine 0.9, and troponin negative x3. BNP 3610. T SH is 0.547. Serial EKGs reviewed by me showed atrial flutter with rapid ventricular response. Echocardiogram rev iewed by me: Mildly reduced LV systolic function at 40% with mild global hypokinesis. Severe left a trial and mild to moderate right atrial dilation. Trivial pericardial effusion. Chest x-ray reviewed by me: COPD. ASSESSMENT AND PLAN: A 76-year-old male with mixed cardiomyopathy, both ischemic and tachycardia med iated. He is admitted with coronavirus respiratory infection that has likely triggered recurrent atr ial flutter. He is intermittently mildly hypotensive but not highly symptomatic. He also appears to be in mild heart failure. 1. Atrial flutter. Diltiazem drip is not ideal given his cardiomyopathy. We will wean this. Resum e oral Coreg. Try 2 doses of digoxin spread 6 hours apart. Ideally he would have a BETO guided cardi oversion, but I would like to further evaluate his esophagus before passing a BETO probe. He will hav e a barium swallow today and may ultimately require GI consult for his reported history of esophageal diverticulum. He is currently on full-dose Lovenox, which is reasonable, and may be switched either to Eliquis or other oral anticoagulant later in his hospital stay. 2. Cardiomyopathy with heart failure: Ejection fraction 40%. We will give 1 dose of intravenous La six now. Continue Coreg. Lisinopril is on hold due to relative hypotension. 3. Coronary disease: He describes intermittent chest pain. EKG is nonischemic. Troponins have bee n negative. I think his clinical picture is that of respiratory infection/chronic obstructive pulmon kadi disease exacerbation and atrial tachyarrhythmia. 4. Chronic obstructive pulmonary disease/upper respiratory infection: Per Internal Medicine. 5. Tobacco abuse: The patient is strongly encouraged to quit smoking completely. 6. Peripheral vascular disease with history of abdominal aortic aneurysm status post endograft repai r. This is followed by Dr. Aguayo as an outpatient. Thank you for allowing us to participate in Mr. Cali's care. We will follow with you. /[id number]/MODL
[2017-08-17] MEDS: CARVEDILOL 6.25 MG TAB PO SCH (15:07)
--- NOTE | 2017-08-17 15:58 | ASMTCMCOM ---
CM Note CM Note Notes: Pt admitted with COPD exacerbation and atrial flutter. It is uncler what his DC needs willl be. CM to follow, Date Signed: 08/17/2017 03:57 PM Electronically Signed By:Maritza Mon LCSW
--- NOTE | 2017-08-17 17:27 | HOSPPROG ---
Hospitalist Progress Note Assessment/Plan: 76-year-old gentleman admitted for shortness of breath and found to be in atrial fibrillation with RVR. Troponins have been negative but he continues in AFib with RVR despite diltiazem which has caused hypotension. He has been changed from diltiazem to metoprolol and digoxin and has converted to normal sinus rhythm. Patient is new to me today -atrial fib with RVR converted to normal sinus rhythm on metoprolol and digoxin. -coronary artery disease with known prior intervention. He is not experiencing chest pain and troponins have been negative with need nonacute ECG -acute on chronic respiratory failure 2nd to cardiac rhythm disturbance. -acute on chronic CHF, systolic CHF with an echocardiogram showing a niece EF of 40%. His JVP elevation and has mild systolic failure. This should improve post conversion to NSR chemically. Plan: Continue metoprolol and digoxin mild diuresis if necessary. Continue his pulmonary care Plan was discussed with Cardiology chest x-ray and echo were reviewed. Time: 50 min Subjective: No complaints of chest pain but says he does feel slightly short of breath. He is unaware that he is in atrial fibrillation. Objective: Vital Signs Temp Pulse Resp BP Pulse Ox 36.7 C 147 H 22 H 115/78 93 08/17/17 15:21 08/17/17 15:21 08/17/17 15:21 08/17/17 15:21 08/17/17 15:21 Laboratory Results 08/17/17 03:29 08/17/17 03:29 08/16/17 08/17/17 08/18/17 05:59 05:59 05:59 Intake Total 800 740 Output Total 1200 525 Balance -400 215 PT 13.2 SEC (12.0-15.0) 08/16/17 13:00 INR 0.98 (0.83-1.16) 08/16/17 13:00 - Time Spent With Patient Time Spent with Patient: greater than 35 minutes Time Spent with Patient: Greater than 35 minutes spent on this patients care, greater than 50% of time spent counseling, educating, and coordinating care regarding the above mentioned plan. - Pending Discharge Pending Discharge Within 24 Hours: No Pending Discharge Within 48 Hours: Yes Pending Discharge Date: 08/19/17 Pending Discharge Time: 11:00 - Physical Exam Constitutional: no apparent distress, chronically ill appearing Eyes: PERRL Ears, Nose, Mouth, Throat: moist mucous membranes, hearing normal Cardiovascular: irregularly irregular, tachycardia Respiratory: reduced air movement, expiratory wheeze Gastrointestinal: normoactive bowel sounds, soft, non-tender abdomen, no palpable masses Genitourinary: no bladder fullness Skin: warm Musculoskeletal: full muscle strength Neurologic: AAOx3, CN II-XII Intact ICD10 Worksheet Patient Problems: Problems Problem Status Onset Atrial flutter Chronic CHF (congestive heart failure) Chronic Chronic Disease Mgmt/Transitional Care Chronic Acute respiratory failure Acute Hypoxia Acute Bronchitis Acute Hematoma Acute Chronic obstructive pulmonary disease with acute exacerbation Acute
--- NOTE | 2017-08-17 17:31 | CPEKG ---
Heart Rate: 72 RR Interval: 833 P-R Interval: 152 QRSD Interval: 118 QT Interval: 420 QTC Interval: 460 P [place]: 78 QRS [place]: 74 T Wave [place]: 104 EKG Severity - ABNORMAL ECG - EKG Impression: SINUS RHYTHM EKG Impression: PROBABLE LEFT ATRIAL ABNORMALITY EKG Impression: LEFT POSTERIOR FASCICULAR BLOCK Electronically Signed By: Caden Kaur 18-Aug-2017 07:33:06
[2017-08-18] MEDS: APIXABAN 5 MG TAB PO SCH ×3 (00:15→22:00)
[2017-08-18] MEDS: CARVEDILOL 6.25 MG TAB PO SCH ×3 (00:15→17:45)
[2017-08-18] MEDS: LEVALBUTEROL 1.25 MG/3 ML DEYVIAL IH PRN ×3 (00:46→07:48)
[2017-08-18 04:20] LABS: PLATELET COUNT 196 10^3/uL (150-400)
[2017-08-18] MEDS ORDERED: FUROSEMIDE 20 MG/2 ML VIAL IVP ONE ×2 (07:39→10:00)
[2017-08-18] MEDS ORDERED: LORazepam 2 MG/ML INJ IVP ONE (07:45)
[2017-08-18] MEDS ORDERED: methylPREDNISolone SOD SUCC 125 MG/2 ML VIAL IVP ONE (07:45)
--- NOTE | 2017-08-18 07:45 | CPEKG ---
Heart Rate: 89 RR Interval: 674 P-R Interval: 156 QRSD Interval: 110 QT Interval: 392 QTC Interval: 477 P [place]: 69 QRS [place]: 83 T Wave [place]: 69 EKG Severity - ABNORMAL ECG - EKG Impression: SINUS RHYTHM EKG Impression: PROBABLE LEFT ATRIAL ABNORMALITY EKG Impression: LEFT POSTERIOR FASCICULAR BLOCK Electronically Signed By: Deangelo Salas 18-Aug-2017 15:31:20
--- NOTE | 2017-08-18 07:47 | HOSPPROG ---
Hospitalist Progress Note Assessment/Plan: CRITICAL CARE NOTE Called to stat team, approx 7:30 am for acute resp distress Pt did not sleep well, had increased dyspnea. Now this AM severe sob, with some mild pain across anterior chest. No increase in cough no feverish sxs No pleuritic pain or leg pain Vitals stable thru night, now with some HTN and his RR is very rapid in 35 range on mask oxygen Card Monitor: stable sinus rythym on exam severe resp distress with extremely labored resps, very slow exp phase, using accessory muscles no stridor skin is slightly dusky, but warm anxious heart very difficult to hear, nothing abnormal lungs: barely audible breathsounds, with exp wheeze slight edema, less than at admission exam abd non distended, soft nontender iv site ok mentation good I ordered some tests CXR ( I reviewed image ) there is more vasc plethora and some mild edema of lungs EKG (I reviewed tracing) sinus rythym, some minimal elevation of anterior ST is of questionable significance, and ant/lat T wave inversions, all of which are unchanged from past two ekgs this admission ABG is pending He has now had two xopenex nebs, 60 mg solumedrol, 20 mg lasix, and 0.5 ativan, a bit more relaxed but still wheezing hard and tachypneic, still anxious Will transfer to ICU at this time I have reviewed this case in detail today with Dr Lawson and with Arthurarelis SCANLON Total Critical Care time > 60 mins over 3 visits with patient Objective: Vital Signs Temp Pulse Resp BP Pulse Ox 36.7 C 84 17 145/93 H 92 08/18/17 03:51 08/18/17 03:51 08/18/17 03:51 08/18/17 03:51 08/18/17 03:51 Laboratory Results 08/18/17 03:35 08/18/17 03:35 08/17/17 08/18/17 08/19/17 06:59 06:59 06:59 Intake Total 800 1520 Output Total 1300 975 Balance -500 545 PT 13.2 SEC (12.0-15.0) 08/16/17 13:00 INR 0.98 (0.83-1.16) 08/16/17 13:00 ICD10 Worksheet Patient Problems: Problems Problem Status Onset Chronic obstructive pulmonary disease with acute exacerbation Acute Atrial flutter Chronic Acute respiratory failure Acute Bronchitis Acute Hematoma Acute Hypoxia Acute CHF (congestive heart failure) Chronic Chronic Disease Mgmt/Transitional Care Chronic
[2017-08-18] MEDS ORDERED: IPRATROPIUM BROMIDE 0.5 MG/2.5 ML DEYVIAL IH PRN (07:53)
--- NOTE | 2017-08-18 09:14 | PDCARPN ---
Cardiology Progress Note Chief Complaint: Patient is sedated, reports no complaints at this time. Assessment/Plan: Assessment: 76-year-old male with significant history of CAD with previous stents to RCA, lad, circumflex. Paroxysmal atrial flutter, COPD, current tobacco use, and abdominal aortic aneurysm with endograft repair in 2014. Admitted to [facility] on August 14 dyspnea and minimal productive cough, diagnosed with coronavirus. Also found to be in atrial flutter with rapid ventricular response. On admission, negative troponins x3, BNP noted to be elevated at 3610. Echocardiogram done on 08/17/2017 showing [id number]-hl-[id number] LVH mildly reduced LV function with EF estimated 40% global hypokinesis , intermittent septal dyskinesis normal RV size, normal RV function LA was severely dilated, RA is [id number] dilated, trivial TR. In comparison to previous echo done 02/2014, EF since improved (previously 15-20%). Yesterday , Dr. Rosales discontinued diltiazem, due to hypotension, and placed patient on Coreg. Patient converted back to sinus rhythm , started on anticoagulation due to significant [id number] Vasc score of 5. Patient was also given IV Lasix. Today: Stat team called for increased respiratory distress. ABG drawn showing pCO2 78, PO2 200 on , total CO2 34, pH 7.23, HCO3 31. EKG showing sinus rhythm , left posterior fascicular block, no acute ST or T-wave abnormalities, unchanged from previous EKGs. Chest x-ray showing a showing congestive heart failure/fluid overload superimposed upon underlying airway disease. Dr Deluna, of [facility], has order IV Lasix, IV steroids, IV ativan, place on CPAP, and Neb treatments. On my exam , patient resting comfortably , maintaining SpO2 greater 90%. Noted no significant weight change from yesterday. Per Dr. Deluna, patient did report mild chest pressure at the time of stat team event. Troponin level pending. Continues to have audible expiratory wheezes, diminished in bases. [place]. Continues cardiac monitoring showing sinus rhythm, rare PVC, no further runs of AFib a flutter. Plan: 1. Acute respiratory failure: Probable combination of upper respiratory infection, COPD, and systolic heart failure. Improvement on CPAP, started on IV steroids. IV Lasix given, continue monitor, consideration of repeating dosage later today. 2. Atrial flutter: Maintaining sinus rhythm. Continue on carvedilol. Patient was given IV digoxin yesterday prior to conversion, will continue to monitor, if necessary repeat digoxin. Currently on Eliquis, due to his recent acute respiratory failure , consideration of transitioning back to Lovenox , in case patient needs to undergo cardiac catheterization. 3. Acute on chronic systolic heart failure: Potentially driven by a flutter with RVR in upper respiratory infection, IV diuretics as mentioned above. Continue on Coreg and lisinopril. Most recent echocardiogram shows significant improvement in EF in comparison to previous echo in 2014 4. CAD: Negative troponins x4, patient reporting mild chest pressure this morning with respiratory distress. Repeated troponin after episodes this morning but currently pending. Depending on results, consideration of MPI study or catheterization prior to discharge. cont on ASA, statin and BB 5. Tobacco abuse: Patient has been encouraged to quit smoking altogether. 6. COPD/Upper respiratory infection: Per hospital services 7. PVD: Followed by interventional as an outpatient. 08/18/17 09:13 Subjective: Patient is sedated, denies of any chest pressure. Reports shortness of breath is improved on CPAP. Denies of any palpitations. Reviewed/Discussed With: hospitalist (Dr Deluna), other (Dr Cullen) Objective: Vital Signs (8 Hrs) Temp Pulse Resp BP Pulse Ox 08/18/17 08:15 90 34 H 97 08/18/17 08:00 35.9 C L 84 20 164/110 H 96 08/18/17 03:51 36.7 C 84 17 145/93 H 92 Intake/Output (24 Hrs) 08/17/17 08/18/17 08/19/17 05:59 05:59 05:59 Intake Total 800 1520 Output Total 1200 1075 Balance -400 445 Intake: Oral (ml) 300 1520 IV Infused (ml) 500 Output: Urine (ml) 1200 1075 Urinal 1200 1075 Other: Weight 61.3 kg 61.6 kg Number of Voids Urinal 1 1 Result Diagrams: 08/18/17 03:35 08/18/17 03:35 Cardiac Labs: Cardiac Lab Results (72 Hrs) 08/17/17 08/17/17 08/17/17 19:46 11:55 03:29 Troponin I 0.013 < 0.012 0.013 - Physical Exam Constitutional: other ( Sedated, tachypneic, currently on CPAP) Ears, Nose, Mouth, Throat: moist mucous membranes Cardiovascular: regular rate and rhythm, no murmurs, jugular vein distention ( 4 - 5 cm above sternal notch at a 45 degree angle), pulses symmetric bilat, No systolic murmur, No carotid bruit Peripheral Pulses: 1+: dorsalis-pedis (R), dorsalis-pedis (L), 2+: carotid (R), carotid (L) Respiratory: other ( inspiratory and expiratory wheezing, diminished in bases bilateral. Tachypneic.) Gastrointestinal: normoactive bowel sounds Skin: no rashes, warm, no edema Psychiatric: cooperative, following commands ICD10 Worksheet Patient Problems: Problems Problem Status Onset Atrial flutter Chronic CHF (congestive heart failure) Chronic Chronic Disease Mgmt/Transitional Care Chronic Acute respiratory failure Acute Hypoxia Acute Bronchitis Acute Hematoma Acute Chronic obstructive pulmonary disease with acute exacerbation Acute
[2017-08-18] MEDS: NICOTINE 14 MG/24 HR PATCH TD SCH (10:51)
[2017-08-18] MEDS: LISINOPRIL 10 MG TAB PO SCH (11:23)
[2017-08-18] MEDS: ATORVASTATIN CALCIUM 40 MG TAB PO SCH (11:23)
[2017-08-18] MEDS: ASPIRIN EC 81 MG TAB PO SCH (11:24)
[2017-08-18] MEDS: DOCUSATE SODIUM 100 MG CAP PO SCH (11:24)
[2017-08-18] MEDS: SERTRALINE HCL 50 MG TAB PO SCH (11:24)
[2017-08-18] MEDS: Finasteride [Propecia] 1 MG PO SCH (12:23)
[2017-08-18] MEDS: methylPREDNISolone SOD SUCC 40 MG/ML VIAL IVP SCH ×2 (14:15→22:00)
[2017-08-19 04:44] LABS: PLATELET COUNT 184 10^3/uL (150-400)
[2017-08-19] MEDS: methylPREDNISolone SOD SUCC 40 MG/ML VIAL IVP SCH ×3 (05:49→21:10)
[2017-08-19] MEDS ORDERED: FUROSEMIDE 40 MG/4 ML VIAL IVP ONE (08:41)
[2017-08-19] MEDS ORDERED: POTASSIUM CL 20 MEQ TAB PO ONE (08:43)
[2017-08-19] MEDS: LEVALBUTEROL 1.25 MG/3 ML DEYVIAL IH PRN (09:47)
[2017-08-19] MEDS: APIXABAN 5 MG TAB PO SCH ×2 (10:05→21:10)
[2017-08-19] MEDS: CARVEDILOL 6.25 MG TAB PO SCH ×3 (10:07→18:02)
[2017-08-19] MEDS: NICOTINE 14 MG/24 HR PATCH TD SCH (10:09)
[2017-08-19] MEDS: DOCUSATE SODIUM 100 MG CAP PO SCH (12:46)
[2017-08-19] MEDS: ASPIRIN EC 81 MG TAB PO SCH (12:46)
[2017-08-19] MEDS: LISINOPRIL 10 MG TAB PO SCH (12:47)
[2017-08-19] MEDS: ATORVASTATIN CALCIUM 40 MG TAB PO SCH (12:47)
[2017-08-19] MEDS: SERTRALINE HCL 50 MG TAB PO SCH (12:47)
[2017-08-19] MEDS: Finasteride [Propecia] 1 MG PO SCH (12:48)
--- NOTE | 2017-08-19 14:29 | PDCARPN ---
Cardiology Progress Note Chief Complaint: Patient reports continue feel shortness of breath and fatigue Assessment/Plan: Assessment: 76-year-old male with significant history of CAD with previous stents to RCA, lad, circumflex. Paroxysmal atrial flutter, COPD, current tobacco use, and abdominal aortic aneurysm with endograft repair in 2014. Admitted to [facility] on August 14 dyspnea and minimal productive cough, diagnosed with coronavirus. Also found to be in atrial flutter with rapid ventricular response. On admission, negative troponins x3, BNP noted to be elevated at 3610. Echocardiogram done on 08/17/2017 showing [id number] LVH mildly reduced LV function with EF estimated 40% global hypokinesis , intermittent septal dyskinesis normal RV size, normal RV function LA was severely dilated, RA is nvsu-bk-tpyewcudte dilated, trivial TR. In comparison to previous echo done 02/2014, EF since improved (previously 15-20%). Yesterday , Dr. Rosales discontinued diltiazem, due to hypotension, and placed patient on Coreg. Patient converted back to sinus rhythm , started on anticoagulation due to significant [id number] Vasc score of 5. 08/18/2017 acute respiratory failure, Requiring CPAP IV steroids comma diuretic therapy, nebulizer treatment, and admission to ICU. Today: Patient reports significant improvement in shortness of breath. ABG done showing P CO2 of 62, total CO2 34, PO2 71, pH 7.34, HCO3 32. Troponin level done after spell yesterday was 0.018. Patient did diurese well with double dosage of Lasix yesterday (20 mg IV x2) with 0.6 kilos weight loss. Patient continues to have significant JVD (6-7 cm above sternal notch at a 45 degree angle). Maintaining sinus rhythm with occasional PVC, 1 episode of bigeminy of the yesterday afternoon. Potassium and magnesium within normal limits. Patient reports no chest pressure or pain or symptoms suggesting of ischemia. Esophagram done showing no aspiration , no evidence of esophageal diverticulosis, zenker's diverticulosis, or strictures. Tertiary contraction of esophagus , no hiatal hernia office or definite GERD. Plan: 1. Acute respiratory failure: Probable combination of upper respiratory infection, COPD, and systolic heart failure. Off or CPAP and only on nasal cannula. ABGs improved. 2. Atrial flutter: Maintaining sinus rhythm. Noted episode of bigeminal PVCs yesterday. Troponin negative yesterday. Potassium and magnesium within normal limits. Increased dose of carvedilol. Continue on current dose of Eliquis for anticoagulation. 3. Acute on chronic systolic heart failure: Potentially driven by a flutter with RVR and upper respiratory infection. Continue on Coreg and lisinopril. Most recent echocardiogram shows significant improvement in EF in comparison to previous echo in 2014. Elevated JVD, continue IV diuresis, 40 mg of Lasix IVP today, supplemental potassium given. 4. CAD: Reports no chest pain or symptoms suggesting of angina. Negative troponin yesterday after acute respiratory failure. cont on ASA, statin and BB. Consider outpatient MPI study for further risk stratifications once patient has improved 5. Tobacco abuse: Patient has been encouraged to quit smoking altogether. 6. COPD/Upper respiratory infection: Per hospital services 7. PVD: Followed by interventional radiology as an outpatient. 08/19/17 14:10 Subjective: Patient denies of any chest pressure or pain. Denies of any palpitations, lightheadedness. Reports orthopnea, but denies of PND. Reviewed/Discussed With: hospitalist (Dr Deluna), other (Dr Cullen) Objective: Vital Signs (8 Hrs) Temp Pulse Resp BP Pulse Ox 08/19/17 12:47 119/70 08/19/17 12:00 79 19 118/64 95 08/19/17 10:07 79 158/88 H 08/19/17 10:00 75 27 H 158/88 H 95 08/19/17 09:48 73 26 H 94 08/19/17 08:00 36.4 C 80 25 H 144/69 H 95 Intake/Output (24 Hrs) 08/18/17 08/19/17 08/20/17 05:59 05:59 05:59 Intake Total 1520 540 Output Total 1075 2715 900 Balance 284 -2894 -096 Intake: Oral (ml) 1520 540 Output: Urine (ml) 1075 2715 900 Catheter 2715 900 Urinal 1075 Other: Weight 61.6 kg 61 kg Intake Quantity Yes Sufficient Number of Voids Incontinence 1 Urinal 1 Result Diagrams: 08/19/17 04:35 08/19/17 04:35 Cardiac Labs: Cardiac Lab Results (72 Hrs) 08/18/17 08/17/17 08/17/17 09:50 19:46 11:55 Troponin I 0.018 0.013 < 0.012 08/17/17 03:29 Troponin I 0.013 - Physical Exam Constitutional: no apparent distress Ears, Nose, Mouth, Throat: moist mucous membranes Cardiovascular: regular rate and rhythm, jugular vein distention (5-6 cm above sternal notch), pulses symmetric bilat, No carotid bruit Peripheral Pulses: 1+: dorsalis-pedis (R), dorsalis-pedis (L), 2+: carotid (R), carotid (L) Respiratory: other (Inspiratory and expiratory wheezing with rhonchi comma does clear with cough. Mild rales noted in bases.) Gastrointestinal: normoactive bowel sounds Skin: warm, no edema Neurologic: AAOx3 Psychiatric: cooperative, following commands ICD10 Worksheet Patient Problems: Problems Problem Status Onset Atrial flutter Chronic CHF (congestive heart failure) Chronic Chronic Disease Mgmt/Transitional Care Chronic Acute respiratory failure Acute Hypoxia Acute Bronchitis Acute Hematoma Acute Chronic obstructive pulmonary disease with acute exacerbation Acute
--- NOTE | 2017-08-19 14:45 | HOSPPROG ---
Hospitalist Progress Note Assessment/Plan: CRITICAL CARE NOTE Called to stat team, approx 7:30 am for acute resp distress Pt did not sleep well, had increased dyspnea. Now this AM severe sob, with some mild pain across anterior chest. No increase in cough no feverish sxs No pleuritic pain or leg pain Vitals stable thru night, now with some HTN and his RR is very rapid in 35 range on mask oxygen Card Monitor: stable sinus rythym on exam severe resp distress with extremely labored resps, very slow exp phase, using accessory muscles no stridor skin is slightly dusky, but warm anxious heart very difficult to hear, nothing abnormal lungs: barely audible breathsounds, with exp wheeze slight edema, less than at admission exam abd non distended, soft nontender iv site ok mentation good I ordered some tests CXR ( I reviewed image ) there is more vasc plethora and some mild edema of lungs EKG (I reviewed tracing) sinus rythym, some minimal elevation of anterior ST is of questionable significance, and ant/lat T wave inversions, all of which are unchanged from past two ekgs this admission ABG is pending He has now had two xopenex nebs, 60 mg solumedrol, 20 mg lasix, and 0.5 ativan, a bit more relaxed but still wheezing hard and tachypneic, still anxious Will transfer to ICU at this time I have reviewed this case in detail today with Dr Lawson and with Arthur SCANLON Total Critical Care time > 60 mins over 3 visits with patient++ DIAGNOSES: -acute hypoxemic respiratory failure requiring BiPAP therapy -acute COPD exacerbation, uncertain trigger at this time -mild acute systolic congestive heart failure exacerbation requiring IV Lasix diuresis -atrial flutter at presentation with rapid ventricular rate, now in sinus rhythm - The patient is much better than yesterday morning, however he remains more wheezy with poor breath sounds and more labored breathing that he had initially. He has required ongoing Lasix diuresis and ongoing bronchodilators and steroid, but has been able to be off of the BiPAP now for more than 12 hr. No evidence of acute ischemic disease or infection has been identified so far. There had been plans to do a BETO initially and he had a cervical esophagram to prepare for safety that procedure. The esophagram looks good today. I will discuss with Dr. Rosales and her colleagues whether we are still looking to do the BETO and whether that should be today or delayed. PLANS: -continue bronchodilators and steroids -continue IV diuresis -continue respiratory supportive care -will review with Dr. Laurent Lawson after he has seen the patient. [facility] -he is currently off diltiazem and will continue off that as long as we have good rate control and/or sinus rhythm -continue his new anticoagulation, probably discharged on Eliquis -continue his statin, aspirin, beta-lilian -repeat chest x-ray in a.m. SUBJECTIVE: Feel somewhat better today than yesterday, quite weak today, did not sleep well during late No chest pain or fever symptoms OBJECTIVE Vitals reviewed: Remains tachypneic, no fever, steady heart rate now Associate Chemist, my review: Sinus rhythm through the night and this morning with occasional short burst of AFib Exam: alert oriented looks quite weak and tired but not in distress as he was yesterday skin warm dry color ok resps still moderately labored but notably less so than yesterday morning lungs clear BSs heart regular abd soft nondistended nontender, bowel sounds present limbs warm, still with by pedal edema iv site ok Cervical esophagram was done today, I reviewed images with the radiologist, no evidence of stricture or diverticular changes, no sign of a mass Objective: Vital Signs Temp Pulse Resp BP Pulse Ox 36.4 C 75 20 149/79 H 96 08/19/17 08:00 08/19/17 14:00 08/19/17 14:00 08/19/17 14:00 08/19/17 14:00 Laboratory Results 08/19/17 04:35 08/19/17 04:35 08/18/17 08/19/17 08/20/17 06:59 06:59 06:59 Intake Total 1520 540 Output Total 973 3370 0850 Balance 545 -2175 -1750 PT 13.2 SEC (12.0-15.0) 08/16/17 13:00 INR 0.98 (0.83-1.16) 08/16/17 13:00 - Time Spent With Patient Time Spent with Patient: greater than 35 minutes Time Spent with Patient: Greater than 35 minutes spent on this patients care, greater than 50% of time spent counseling, educating, and coordinating care regarding the above mentioned plan. ICD10 Worksheet Patient Problems: Problems Problem Status Onset Chronic obstructive pulmonary disease with acute exacerbation Acute Atrial flutter Chronic Acute respiratory failure Acute Bronchitis Acute Hematoma Acute Hypoxia Acute CHF (congestive heart failure) Chronic Chronic Disease Mgmt/Transitional Care Chronic
[2017-08-20] MEDS: methylPREDNISolone SOD SUCC 40 MG/ML VIAL IVP SCH ×3 (04:41→21:07)
[2017-08-20 05:15] LABS: PLATELET COUNT 195 10^3/uL (150-400)
[2017-08-20] MEDS ORDERED: POTASSIUM CL 20 MEQ TAB PO ONE (07:36)
[2017-08-20] MEDS ORDERED: FUROSEMIDE 40 MG/4 ML VIAL IVP ONE (07:36)
[2017-08-20] MEDS: CARVEDILOL 25 MG TAB PO SCH ×2 (09:41→17:28)
[2017-08-20] MEDS: APIXABAN 5 MG TAB PO SCH ×2 (09:41→21:07)
[2017-08-20] MEDS: NICOTINE 14 MG/24 HR PATCH TD SCH (09:42)
[2017-08-20] MEDS: DOCUSATE SODIUM 100 MG CAP PO SCH (12:54)
[2017-08-20] MEDS: ASPIRIN EC 81 MG TAB PO SCH (12:54)
[2017-08-20] MEDS: ATORVASTATIN CALCIUM 40 MG TAB PO SCH (12:54)
[2017-08-20] MEDS: LISINOPRIL 10 MG TAB PO SCH (12:55)
[2017-08-20] MEDS: Finasteride [Propecia] 1 MG PO SCH (12:57)
[2017-08-20] MEDS: SERTRALINE HCL 50 MG TAB PO SCH (12:59)
--- NOTE | 2017-08-20 13:07 | HOSPPROG ---
Hospitalist Progress Note Assessment/Plan: DIAGNOSES: -acute hypoxemic respiratory failure requiring BiPAP therapy -acute COPD exacerbation, hernandez virus as trigger -acute hernandez virus infection -mild acute systolic congestive heart failure exacerbation requiring continued IV Lasix diuresis -atrial flutter at presentation with rapid ventricular rate, now in sinus rhythm , now on new anticoagulant therapy -generalized weakness deconditioning and gait instability A he continues to improve. Will continue bronchodilators and steroids at current doses. Another dose of diuresis ordered by cardiology today. Will continue current right all meds and anticoagulant Probably approximately 48 hr more monitoring and medical treatment here in the hospital room be required before he is stable for discharge. Anticipate he will like we need SNF and we have discussed that with the patient and family today on our interdisciplinary rounds PLANS: -continue bronchodilators and steroids -continue IV diuresis -continue respiratory supportive care - I have reviewed the patient's care today with the Arthur Otto of Cardiology. -he is currently off diltiazem and will continue off that as long as we have good rate control and/or sinus rhythm -continue his new anticoagulation, probably discharged on Eliquis -continue his statin, aspirin, beta-lilian -continue physical occupational therapy, probable SNF upon discharge SUBJECTIVE: Fairly weak and tired, breathing feels better, still with some cough No chest pain, no fever symptoms Appetite a bit better Nurses note he does need assistance with walking at this time There has been any noted sign of aspiration with eating so far OBJECTIVE Vitals reviewed: Vitals all stable without fever Licensed Physical Therapist Assistant, my review: Sinus rhythm Exam: alert oriented still looks quite weak and tired skin warm dry color ok resps respirations now with more relaxed lungs clear BSs heart regular abd soft nondistended nontender, bowel sounds present limbs warm, notably less edema of limbs today iv site ok Laboratory data: BUN up slightly at 30 chemistries otherwise stable White blood cell count up to 11,000, suspected due to his steroids Objective: Vital Signs Temp Pulse Resp BP Pulse Ox 36.7 C 64 18 105/74 94 08/20/17 11:22 08/20/17 11:22 08/20/17 11:22 08/20/17 12:55 08/20/17 11:22 Laboratory Results 08/20/17 03:40 08/20/17 03:40 08/19/17 08/20/17 08/21/17 06:59 06:59 06:59 Intake Total 540 610 Output Total 9723 4867 Balance -2175 -1890 PT 13.2 SEC (12.0-15.0) 08/16/17 13:00 INR 0.98 (0.83-1.16) 08/16/17 13:00 - Time Spent With Patient Time Spent with Patient: greater than 35 minutes Time Spent with Patient: Greater than 35 minutes spent on this patients care, greater than 50% of time spent counseling, educating, and coordinating care regarding the above mentioned plan. ICD10 Worksheet Patient Problems: Problems Problem Status Onset Chronic obstructive pulmonary disease with acute exacerbation Acute Atrial flutter Chronic Acute respiratory failure Acute Bronchitis Acute Hematoma Acute Hypoxia Acute CHF (congestive heart failure) Chronic Chronic Disease Mgmt/Transitional Care Chronic
--- NOTE | 2017-08-20 15:04 | PDCARPN ---
Cardiology Progress Note Chief Complaint: Patient reports continuation of shortness of breath, but improvement. Assessment/Plan: Assessment: 76-year-old male with significant history of CAD with previous stents to RCA, lad, circumflex. Paroxysmal atrial flutter, COPD, current tobacco use, and abdominal aortic aneurysm with endograft repair in 2014. Admitted to [facility] on August 14 dyspnea and minimal productive cough, diagnosed with coronavirus. Also found to be in atrial flutter with rapid ventricular response. On admission, negative troponins x3, BNP noted to be elevated at 3610. Echocardiogram done on 08/17/2017 showing lkvf-[id number] LVH mildly reduced LV function with EF estimated 40% global hypokinesis , intermittent septal dyskinesis normal RV size, normal RV function LA was severely dilated, RA is beqv-nt-czzgelmfdm dilated, trivial TR. In comparison to previous echo done 02/2014, EF since improved (previously 15-20%). Yesterday , Dr. Rosales discontinued diltiazem, due to hypotension, and placed patient on Coreg. Patient converted back to sinus rhythm , started on anticoagulation due to significant [id number] Vasc score of 5. 08/18/2017 acute respiratory failure, Requiring CPAP IV steroids, diuretic therapy, nebulizer treatment, and admission to ICU for 1 day. Esophagram done on 08/19/2017 showing no aspiration , no evidence of esophageal diverticulosis, zenker's diverticulosis, or strictures. Tertiary contraction of esophagus , no hiatal hernia office or definite GERD. Today: Patient reports significant improvement in shortness of breath. He is much more awake and alert. Laboratory studies drawn showing BUN up mildly at 33 , creatinine 0.8. Denies of any chest pain or pressure or symptoms suggesting of ischemia. Continues cardiac monitoring showing sinus rhythm, occasional PVC , noted brief episode of bigeminy. Noted 1 brief episode of SVT for less than 5 seconds this morning. Continues to be hypertensive, despite recent increase of carvedilol. Patient with good diuresis from Lasix yesterday. Weight is down 1.8 kilos. output>Input. Plan: 1. Acute respiratory failure: Probable combination of upper respiratory infection, COPD, and systolic heart failure. Improved since yesterday, continue on oxygen therapy. 2. Atrial flutter: Maintaining sinus rhythm. Increased dose of carvedilol. Continue on current dose of Eliquis for anticoagulation. 3. Acute on chronic systolic heart failure: Potentially driven by a flutter with RVR and upper respiratory infection. Continue on Coreg and lisinopril. Most recent echocardiogram shows significant improvement in EF in comparison to previous echo in 2014. Weight is decreased with IV diuresis. Improvement in respiratory status. Repeat IV Lasix today, consideration of transitioning to oral torsemide tomorrow. Potassium replacement therapy ordered. 4. CAD: Reports no chest pain or symptoms suggesting of angina. Negative troponin yesterday after acute respiratory failure. cont on ASA, statin and BB. Consider outpatient MPI study for further risk stratifications once patient has improved 5. Hypertension: Patient continue to be hypertensive last evening, despite recent increase of carvedilol. Will increase carvedilol today to 12.5 mg p.o. twice daily. Continue on current dose of lisinopril. IV diuretics as above. 5. Tobacco abuse: Patient has been encouraged to quit smoking altogether. 6. COPD/Upper respiratory infection: Per hospital services 7. PVD: Followed by interventional radiology as an outpatient. 08/20/17 15:02 Subjective: Patient denies of any chest pressure or pain. Reports improvement in shortness of breath. Still gets significant dyspnea on exertion with any walking. Denies of any palpitations or lightheadedness. Reviewed/Discussed With: hospitalist (Dr Deluna), other (Dr Cullen) Objective: Vital Signs (8 Hrs) Temp Pulse Resp BP Pulse Ox 08/20/17 12:55 105/74 08/20/17 11:22 36.7 C 64 18 134/75 H 94 08/20/17 09:41 75 155/91 H 08/20/17 07:38 36.4 C 67 15 176/104 H 95 Intake/Output (24 Hrs) 08/19/17 08/20/17 08/21/17 05:59 05:59 05:59 Intake Total 540 610 Output Total 2715 2500 Balance -2175 -1890 Intake: Oral (ml) 540 610 Output: Urine (ml) 2715 2500 Catheter 2715 2500 Other: Weight 59.8 kg Intake Quantity Yes Sufficient Number of Voids Incontinence 1 Result Diagrams: 08/20/17 03:40 08/20/17 03:40 Cardiac Labs: Cardiac Lab Results (72 Hrs) 08/18/17 08/17/17 09:50 19:46 Troponin I 0.018 0.013 - Physical Exam Constitutional: no apparent distress Ears, Nose, Mouth, Throat: moist mucous membranes Cardiovascular: regular rate and rhythm, no rubs, jugular vein distention (5 cm above sternal notch at a 45 degree angle.), pulses symmetric bilat, No carotid bruit Peripheral Pulses: 1+: dorsalis-pedis (R), dorsalis-pedis (L), 2+: carotid (R), carotid (L) Respiratory: other (Rhonchi and expiratory wheezing, mildly clears with cough. Diminished in bases. No rales noted) Gastrointestinal: normoactive bowel sounds Skin: warm, no edema Neurologic: AAOx3 Psychiatric: cooperative, interactive, following commands ICD10 Worksheet Patient Problems: Problems Problem Status Onset Chronic obstructive pulmonary disease with acute exacerbation Acute Atrial flutter Chronic Acute respiratory failure Acute Bronchitis Acute Hematoma Acute Hypoxia Acute CHF (congestive heart failure) Chronic Chronic Disease Mgmt/Transitional Care Chronic
--- NOTE | 2017-08-20 15:32 | ASMTCMCOM ---
CM Note CM Note Notes: 08/20/2017 Case Management Note Met w/pt to discuss PT recommendation for home care. Pt requested case management coordinate through his Anna [phone]. Called Anna who agreed with need for funeral home location manager and PT. Anna requested referrals to [facility] agencies. Faxed referrals via [employer]. Case Management to notify family tomorrow of Home Care agencies that accepted patient. Anna stated she generally leaves [place] after 9 am to visit her . Case Management d/c poc: Home Care pending acceptance. Case Management to follow. Date Signed: 08/20/2017 03:32 PM Electronically Signed By:Cait Pete RN
[2017-08-21] MEDS: methylPREDNISolone SOD SUCC 40 MG/ML VIAL IVP SCH ×3 (06:19→22:14)
[2017-08-21] MEDS: NICOTINE 14 MG/24 HR PATCH TD SCH (08:05)
[2017-08-21] MEDS: CARVEDILOL 25 MG TAB PO SCH ×2 (08:06→17:13)
[2017-08-21] MEDS: APIXABAN 5 MG TAB PO SCH ×2 (08:06→19:39)
[2017-08-21] MEDS: TORSEMIDE 20 MG TAB PO SCH (10:38)
[2017-08-21] MEDS: POTASSIUM CL 10 MEQ TAB PO SCH (10:38)
[2017-08-21] MEDS: ASPIRIN EC 81 MG TAB PO SCH (11:20)
[2017-08-21] MEDS: DOCUSATE SODIUM 100 MG CAP PO SCH (11:20)
[2017-08-21] MEDS: SERTRALINE HCL 50 MG TAB PO SCH (11:20)
[2017-08-21] MEDS: LISINOPRIL 10 MG TAB PO SCH ×2 (11:21→19:39)
[2017-08-21] MEDS: ATORVASTATIN CALCIUM 40 MG TAB PO SCH (11:21)
[2017-08-21] MEDS: Finasteride [Propecia] 1 MG PO SCH (11:22)
--- NOTE | 2017-08-21 12:16 | PDCARPN ---
Cardiology Progress Note Chief Complaint: Patient reports continued to have shortness of breath and fatigue, but improvement over the last day or 2. Assessment/Plan: Assessment: 76-year-old male with significant history of CAD with previous stents to RCA, lad, circumflex. Paroxysmal atrial flutter, COPD, current tobacco use, and abdominal aortic aneurysm with endograft repair in 2014. Admitted to [facility] on August 14 dyspnea and minimal productive cough, diagnosed with coronavirus. Also found to be in atrial flutter with rapid ventricular response. On admission, negative troponins x3, BNP noted to be elevated at 3610. Echocardiogram done on 08/17/2017 showing czpt-jr-jjdhnrje LVH mildly reduced LV function with EF estimated 40% global hypokinesis , intermittent septal dyskinesis normal RV size, normal RV function LA was severely dilated, RA is qyvh-rn-zulplnvveb dilated, trivial TR. In comparison to previous echo done 02/2014, EF since improved (previously 15-20%). Yesterday , Dr. Rosales discontinued diltiazem, due to hypotension, and placed patient on Coreg. Patient converted back to sinus rhythm , started on anticoagulation due to significant [id number] Vasc score of 5. 08/18/2017 acute respiratory failure, Requiring CPAP IV steroids, diuretic therapy, nebulizer treatment, and admission to ICU for 1 day. Esophagram done on 08/19/2017 showing no aspiration , no evidence of esophageal diverticulosis, zenker's diverticulosis, or strictures. Tertiary contraction of esophagus , no hiatal hernia office or definite GERD. Today: Less fatigue, reports continue with shortness of breath, but significant improvement. Continues to have dyspnea on exertion. Denies of any chest pressure or pain. Patient's weight is down 1.4 kilos from yesterday. O> I. Continuous monitor and storage bin tender showing that he is maintaining sinus rhythm, occasional PVC. Overnight, continues to have episodes of hypertension with systolic running from 147-160. Diastolic 85-90. He denies of any chest pressure or pain. Continues to have expiratory wheezing, but does clear with cough. No rales noted. No labs drawn overnight. Continues to have JVD, but improvement , 5 cm at 45 degree angle. Plan: 1. Acute respiratory failure: Probable combination of upper respiratory infection, COPD, and systolic heart failure. Improved since yesterday, continue on oxygen therapy. 2. Atrial flutter: Maintaining sinus rhythm. Continue on current dose of carvedilol.. Continue on current dose of Eliquis for anticoagulation. 3. Acute on chronic systolic heart failure: Potentially driven by a flutter with RVR and upper respiratory infection. Continue on Coreg and lisinopril. Most recent echocardiogram shows significant improvement in EF in comparison to previous echo in 2014. Weight is decreased with IV diuresis. Improvement in respiratory status. Transitioned over to oral torsemide. Ordered for BMP today to evaluate electrolyte and renal function. 4. CAD: Reports no chest pain or symptoms suggesting of angina. Negative troponin yesterday after acute respiratory failure. cont on ASA, statin and BB. Will schedule patient for outpatient MPI study for further risk evaluation once he has recovered from his upper respiratory infection and COPD exacerbation. 5. Hypertension: Patient continue to be hypertensive last evening, despite recent increase of carvedilol. Discussed with Dr. Deluna, will increase his lisinopril to 10 mg p. o. twice daily. 6. Tobacco abuse: Patient has been encouraged to quit smoking altogether. 7. COPD/Upper respiratory infection: Per hospitalist services 8. PVD: Followed by interventional radiology as an outpatient. 08/21/17 12:15 Subjective: Patient denies of any chest pressure or pain. Reports no orthopnea, palpitations, lightheadedness, near-syncope, or syncopal events. Continues to feel fatigue with exertion. Reviewed/Discussed With: family (Patient ), hospitalist (Dr Deluna), other ( Dr Cullen) Objective: Vital Signs (8 Hrs) Temp Pulse Resp BP Pulse Ox 08/21/17 11:27 36.4 C 64 20 123/73 H 94 08/21/17 07:31 36.6 C 62 16 158/89 H 94 Intake/Output (24 Hrs) 08/20/17 08/21/17 08/22/17 05:59 05:59 05:59 Intake Total 610 750 Output Total 2500 1280 50 Balance -1890 -530 -50 Intake: Oral (ml) 610 750 Output: Urine (ml) 2500 1280 50 Catheter 2500 1100 Urinal 180 50 Other: Weight 59.8 kg 58.5 kg Number of Voids Toilet 2 Urinal 1 Result Diagrams: 08/20/17 03:40 08/20/17 03:40 - Physical Exam Constitutional: WDWN, no apparent distress Ears, Nose, Mouth, Throat: moist mucous membranes Cardiovascular: regular rate and rhythm, jugular vein distention (5 cm above sternal notch at a 45 degree angle), pulses symmetric bilat, No carotid bruit Peripheral Pulses: 1+: dorsalis-pedis (R), dorsalis-pedis (L), 2+: carotid (R), carotid (L) Respiratory: other (Expiratory wheezing and diminished in bases. Wheezing does clear up with cough. Flutter valve ordered.) Gastrointestinal: normoactive bowel sounds Skin: warm, no edema Neurologic: AAOx3 Psychiatric: cooperative, interactive, following commands ICD10 Worksheet Patient Problems: Problems Problem Status Onset Chronic obstructive pulmonary disease with acute exacerbation Acute Atrial flutter Chronic Acute respiratory failure Acute Bronchitis Acute Hematoma Acute Hypoxia Acute CHF (congestive heart failure) Chronic Chronic Disease Mgmt/Transitional Care Chronic
--- NOTE | 2017-08-21 14:08 | HOSPPROG ---
Hospitalist Progress Note Assessment/Plan: DIAGNOSES: -acute hypoxemic respiratory failure requiring BiPAP therapy -acute COPD exacerbation, hernandez virus as trigger -acute hernandez virus infection -mild acute systolic congestive heart failure exacerbation requiring continued IV Lasix diuresis -atrial flutter at presentation with rapid ventricular rate, now in sinus rhythm , now on new anticoagulant therapy -generalized weakness deconditioning and gait instability A he continues to improve. Will continue bronchodilators and steroids at current doses. Another dose of diuresis ordered by cardiology today. Will continue current right all meds and anticoagulant Probably approximately 48 hr more monitoring and medical treatment here in the hospital room be required before he is stable for discharge. Anticipate he will like we need SNF and we have discussed that with the patient and family today on our interdisciplinary rounds PLANS: -continue bronchodilators and steroids -changed diuretic to p.o. Demadex today -ability this time for ongoing hypertension and for his heart failure -continue respiratory supportive care; I have asked for the staff to have him use an Acapella flutter device to help with secretions - I have reviewed the patient's care today with the Arthurarelis Menjivar of Cardiology at the bedside today and we examined the patient together -he is currently off diltiazem and will continue off that as long as we have good rate control and/or sinus rhythm -continue Eliquis and discharge -continue his statin, aspirin, beta-lilian -continue physical occupational therapy, sounds like he may be able to go home with home physical therapy at this point will watch his safety level carefully SUBJECTIVE: Less tired today, breathing feels better, still with some cough No chest pain, no fever symptoms Appetite a bit better Nurses note he does need assistance with walking at this time though therapists are saying he is significantly better and they are actually think he may be able to go home with PT and OT There has been any noted sign of aspiration with eating so far OBJECTIVE Vitals reviewed: Vitals all stable without fever Under Ground Miner, my review: Sinus rhythm Exam: alert oriented still looks quite weak and tired skin warm dry color ok resps respirations now with more relaxed lungs some wheeze today did clear after he coughed hard, there was a lot of sound of secretions heart regular abd soft nondistended nontender, bowel sounds present limbs warm, notably less edema of limbs today iv site ok Objective: Vital Signs Temp Pulse Resp BP Pulse Ox 36.4 C 64 20 123/73 H 94 08/21/17 11:27 08/21/17 11:27 08/21/17 11:27 08/21/17 11:27 08/21/17 11:27 Laboratory Results 08/20/17 03:40 08/21/17 13:03 08/20/17 08/21/17 08/22/17 06:59 06:59 06:59 Intake Total 610 750 Output Total 2500 1280 800 Balance -1890 -530 -800 PT 13.2 SEC (12.0-15.0) 08/16/17 13:00 INR 0.98 (0.83-1.16) 08/16/17 13:00 ICD10 Worksheet Patient Problems: Problems Problem Status Onset Chronic obstructive pulmonary disease with acute exacerbation Acute Atrial flutter Chronic Acute respiratory failure Acute Bronchitis Acute Hematoma Acute Hypoxia Acute CHF (congestive heart failure) Chronic Chronic Disease Mgmt/Transitional Care Chronic
--- NOTE | 2017-08-21 14:12 | ASMTCMCOM ---
CM Note CM Note Notes: Discussed pts case in morning rounds. Pt has been accepted by [facility]. Pt and does not have a preference as long as the home care agency can staff the follow day after d/c. CM to follow. Plan: HC; RN and PT Date Signed: 08/21/2017 02:11 PM Electronically Signed By:ARTUR Bradshaw
[2017-08-21] MEDS: LEVALBUTEROL 1.25 MG/3 ML DEYVIAL IH PRN (16:44)
[2017-08-22] MEDS: methylPREDNISolone SOD SUCC 40 MG/ML VIAL IVP SCH ×2 (06:00→15:17)
[2017-08-22] MEDS: POTASSIUM CL 10 MEQ TAB PO SCH (09:59)
[2017-08-22] MEDS: LISINOPRIL 10 MG TAB PO SCH ×2 (10:00→20:10)
[2017-08-22] MEDS: CARVEDILOL 25 MG TAB PO SCH ×2 (10:00→18:25)
[2017-08-22] MEDS: APIXABAN 5 MG TAB PO SCH ×2 (10:00→20:10)
[2017-08-22] MEDS: NICOTINE 14 MG/24 HR PATCH TD SCH (10:03)
[2017-08-22] MEDS: TORSEMIDE 20 MG TAB PO SCH (10:16)
[2017-08-22] MEDS: ATORVASTATIN CALCIUM 40 MG TAB PO SCH (14:51)
[2017-08-22] MEDS: DOCUSATE SODIUM 100 MG CAP PO SCH (14:53)
[2017-08-22] MEDS: ASPIRIN EC 81 MG TAB PO SCH (14:53)
[2017-08-22] MEDS: SERTRALINE HCL 50 MG TAB PO SCH (14:53)
[2017-08-22] MEDS: Finasteride [Propecia] 1 MG PO SCH (14:55)
--- NOTE | 2017-08-22 15:23 | PDCARPN ---
Cardiology Progress Note Chief Complaint: Patient reports he would like to go home. Reports dyspnea on exertion continues to improve. Continues to feel fatigue with exertion. Assessment/Plan: Assessment: 76-year-old male with significant history of CAD with previous stents to RCA, lad, circumflex. Paroxysmal atrial flutter, COPD, current tobacco use, and abdominal aortic aneurysm with endograft repair in 2014. Admitted to [facility] on August 14 dyspnea and minimal productive cough, diagnosed with coronavirus. Also found to be in atrial flutter with rapid ventricular response. On admission, negative troponins x3, BNP noted to be elevated at 3610. Echocardiogram done on 08/17/2017 showing noqu-uc-qgopzewu LVH mildly reduced LV function with EF estimated 40% global hypokinesis , intermittent septal dyskinesis normal RV size, normal RV function LA was severely dilated, RA is hacb-fn-fmstlmxtnv dilated, trivial TR. In comparison to previous echo done 02/2014, EF since improved (previously 15-20%). Yesterday , Dr. Rosales discontinued diltiazem, due to hypotension, and placed patient on Coreg. Patient converted back to sinus rhythm , started on anticoagulation due to significant [id number] Vasc score of 5. 08/18/2017 acute respiratory failure, Requiring CPAP IV steroids, diuretic therapy, nebulizer treatment, and admission to ICU for 1 day. Esophagram done on 08/19/2017 showing no aspiration , no evidence of esophageal diverticulosis, zenker's diverticulosis, or strictures. Tertiary contraction of esophagus , no hiatal hernia office or definite GERD. Today: Patient reports no chest pain or pressure. Reports shortness of breath is improved. Continues to have rhonchi with slight expiratory wheeze bilateral , does mildly clear with deep cough. Patient continues to feel weak with exertion. Orthostatics done today showing 11 mmhg difference in supine and standing in systolic blood pressure. Continues cardiac monitoring showing patient had is maintaining sinus rhythm , occasional PVC. Patient's weight is down 0.4 kilos from yesterday. O>I. Jugular vein elevation remains at 5 cm above sternal notch. Laboratories done today show mild decrease in chloride down to 95, CO2 increased 39, BUN up to 38 , but creatinine at 0.8. Plan: 1. Acute respiratory failure: Probable combination of upper respiratory infection, COPD, and systolic heart failure. Continue to improve. On oxygen therapy. 2. Atrial flutter: Maintaining sinus rhythm. Continue on current dose of carvedilol.. Continue on current dose of Eliquis for anticoagulation. 3. Acute on chronic systolic heart failure: Potentially driven by a flutter with RVR and upper respiratory infection. Continue on Coreg and lisinopril. Most recent echocardiogram shows significant improvement in EF in comparison to previous echo in 2014. Transitioned over to p.o. torsemide. Noted to have 11 mm Hg difference in supine to standing blood pressure change. BUN continued increased. Chloride down. Decrease torsemide to 10 mg p.o. q.day. Continue monitoring daily weights and I and O's. 4. CAD: Reports no chest pain or symptoms suggesting of angina. Negative troponin yesterday after acute respiratory failure. cont on ASA, statin and BB. Will schedule patient for outpatient MPI study for further risk evaluation once he has recovered from his upper respiratory infection and COPD exacerbation. 5. Hypertension: Continue to be mildly hypertensive last night, but improvement with increase of lisinopril. Continue on current are some carvedilol. Torsemide as mentioned above. 6. Tobacco abuse: Patient has been encouraged to quit smoking altogether. 7. COPD/Upper respiratory infection: Per hospitalist services 8. PVD: Followed by interventional radiology as an outpatient. Patient continues to make improvement. More likely patient can be discharged home in the next day or 2 with home health. Have made appointments for him to be seen in clinic next week by Dr Celaya ([facility] heart failure specialist) , will also schedule him for an MPI study in the next 10 days. 08/22/17 15:17 Subjective: Patient reports no chest pain or pressure. Reports no palpitations. Denies of any lightheadedness. Does report ongoing fatigue and dyspnea on exertion. Reports it is not worsen, actually improved since yesterday. Reviewed/Discussed With: hospitalist (Dr Deluna), other (Dr Scruggs and Dr Cullen) Objective: Vital Signs (8 Hrs) Temp Pulse Pulse Pulse Pulse Resp BP 08/22/17 12:51 70 72 68 08/22/17 12:00 36.5 C 68 18 118/71 08/22/17 11:59 66 18 08/22/17 07:26 36.6 C 61 22 H 138/78 H BP BP BP Pulse Ox 08/22/17 12:51 121/74 H 107/75 118/71 02/02/18 12:00 97 08/22/17 11:59 95 08/22/17 07:26 94 Intake/Output (24 Hrs) 08/21/17 08/22/17 08/23/17 05:59 05:59 05:59 Intake Total 750 1640 440 Output Total 1280 2760 175 Balance -530 -1120 265 Intake: Oral (ml) 750 1640 440 Output: Urine (ml) 1280 2760 175 Catheter 1100 Toilet 400 Urinal 180 2360 175 Other: Weight 58.5 kg 58.1 kg Intake Quantity Yes Sufficient Number of Voids Toilet 2 Urinal 1 Number of Stools Toilet 1 Result Diagrams: 08/20/17 03:40 08/22/17 03:22 - Physical Exam Constitutional: WDWN, no apparent distress Ears, Nose, Mouth, Throat: moist mucous membranes Cardiovascular: regular rate and rhythm, no rubs, no gallops, jugular vein distention (5 cm), pulses symmetric bilat, No carotid bruit Peripheral Pulses: 1+: dorsalis-pedis (R), dorsalis-pedis (L), 2+: carotid (R), carotid (L) Respiratory: other (Noted expiratory wheezes and rhonchi, clearing with cough. No rales noted. No accessory muscle use.) Gastrointestinal: normoactive bowel sounds Skin: warm, no edema Neurologic: AAOx3 Psychiatric: cooperative, interactive, following commands ICD10 Worksheet Patient Problems: Problems Problem Status Onset Atrial flutter Chronic CHF (congestive heart failure) Chronic Chronic Disease Mgmt/Transitional Care Chronic Acute respiratory failure Acute Hypoxia Acute Bronchitis Acute Hematoma Acute Chronic obstructive pulmonary disease with acute exacerbation Acute
--- NOTE | 2017-08-22 16:06 | ASMTCMCOM ---
CM Note CM Note Notes: 08/22/2017 Case Management Note Faxed updates to [facility]. Case Management d/c poc: [facility] care worker and PT Case management available if needs change. Date Signed: 08/22/2017 04:05 PM Electronically Signed By:Cait Pete RN
--- NOTE | 2017-08-22 19:34 | HOSPPROG ---
Hospitalist Progress Note Assessment/Plan: DIAGNOSES: -acute hypoxemic respiratory failure requiring BiPAP therapy -acute COPD exacerbation, hernandez virus as trigger -acute hernandez virus infection -mild acute systolic congestive heart failure exacerbation requiring continued IV Lasix diuresis -atrial flutter at presentation with rapid ventricular rate, now in sinus rhythm , now on new anticoagulant therapy -generalized weakness deconditioning and gait instability He does continue to improve here. Will continue to diurese him here and treat with steroids and bronchodilators. Will change his steroids to oral at this time and begin tapering. If he continues to do better tomorrow will plan on sending him home with home care tomorrow. Home physical therapy has been arranged PLANS: -continue bronchodilators and steroids -changed diuretic to p.o. Demadex -continue respiratory supportive care; I have asked for the staff to have him use an Acapella flutter device to help with secretions - I have reviewed the patient's care today with the Arthur Menjivar of Cardiology at the bedside today and we examined the patient together -he is currently off diltiazem and will continue off that as long as we have good rate control and/or sinus rhythm -continue Eliquis and prescribed this at discharge -continue his statin, aspirin, beta-lilian -continue physical occupational therapy, SUBJECTIVE: Continues to feel better each day, still fair bit of should dyspnea with exertion but moving around better Therapists and nurses note that he is actually getting about on his feet with good balance and strength independently at this time is felt to be a good candidate to go directly home OBJECTIVE Vitals reviewed: Vitals all stable without fever 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, my review: Sinus rhythm Exam: alert oriented still looks quite weak and tired skin warm dry color ok resps respirations now more relaxed lungs still with barely audible breath sounds, little wheeze today, slight rhonchi heart regular abd soft nondistended nontender, bowel sounds present limbs warm, still with some edema in both legs but better again than yesterday iv site ok Objective: Vital Signs Temp Pulse Resp BP Pulse Ox 36.5 C 65 14 142/84 H 95 08/22/17 16:15 08/22/17 16:15 08/22/17 16:15 08/22/17 16:15 08/22/17 16:15 Laboratory Results 08/20/17 03:40 08/22/17 03:22 08/21/17 08/22/17 08/23/17 06:59 06:59 06:59 Intake Total 750 1640 440 Output Total 3954 2762 1275 Balance -530 -1120 -835 PT 13.2 SEC (12.0-15.0) 08/16/17 13:00 INR 0.98 (0.83-1.16) 08/16/17 13:00 ICD10 Worksheet Patient Problems: Problems Problem Status Onset Chronic obstructive pulmonary disease with acute exacerbation Acute Atrial flutter Chronic Acute respiratory failure Acute Bronchitis Acute Hematoma Acute Hypoxia Acute CHF (congestive heart failure) Chronic Chronic Disease Mgmt/Transitional Care Chronic
[2017-08-23] MEDS ORDERED: predniSONE 20 MG TAB PO SCH (08:00)
[2017-08-23] MEDS ORDERED: TORSEMIDE 10 MG TAB PO SCH (10:00)
--- NOTE | 2017-08-23 10:19 | PDIAF ---
- Diagnosis Diagnosis: chf, copd Code Status: Full Code - Medication Management Discharge Medications: Medications to Continue on Transfer Aspirin EC [Aspirin EC 81 mg (*)] 81 mg PO DAILY@08/16/17 [Last Taken ] Atorvastatin Calcium [Lipitor 80 mg] 80 mg PO DAILY@08/16/17 [Last Taken ] Docusate Sodium [Colace 100 MG (*)] 100 mg PO DAILY@08/16/17 [Last Taken ] Finasteride [Propecia] 1 mg PO DAILY@08/16/17 [Last Taken 08/15/17] Ipratropium/Albuterol [Duoneb (*)] 3 ml IH TID PRN 08/16/17 [Last Taken Unknown] Sertraline HCl [Zoloft 50mg (*)] 50 mg PO DAILY@08/16/17 [Last Taken 08/15/17 ] Apixaban [Eliquis] 5 mg PO BID #60 tab 08/23/17 [Last Taken Unknown] Carvedilol [Coreg (*)] 12.5 mg PO BIDMEAL #30 tab 08/23/17 [Last Taken Unknown] Lisinopril [Zestril 10 mg (*)] 10 mg PO BID #60 tab 08/23/17 [Last Taken Unknown ] Potassium Chloride 10 meq PO DAILY #30 tab.er.prt 08/23/17 [Last Taken Unknown] Torsemide 10 mg PO DAILY #30 tablet 08/23/17 [Last Taken Unknown] predniSONE 20 mg PO DAILY #7 tablet 08/23/17 [Last Taken Unknown] Discharge Medications: Refer to the Discharge Home Medication list for PRN reason. - Orders Services needed: Home Care, Registered Nurse, Physical Therapy, Occupational Therapy Home Care Face to Face: I certify that this patient was under my care and that I had the required [id number] encounter meeting the encounter requirements on the discharge day. My findings support the fact that the patient is homebound as defined in Home Care Face to Face Continued: CMS Chapter 7 Medicare Benefits Manual 30.1.1 , The condition of the patient is such that there exists a normal inability to leave home and consequently, leaving home would require a considerable and taxing effort. Isolation Type: Droplet Isolation Diet Recommendation: sodium restricted - Labs/Radiology BMP Date: 08/27/17 (Send to Dr Celaya) - Follow Up Care Current Providers and Referrals: Hollie Teran MD [Primary Care Provider] - As per Instructions
[2017-08-23] MEDS: NICOTINE 14 MG/24 HR PATCH TD SCH (10:42)
[2017-08-23] MEDS: CARVEDILOL 25 MG TAB PO SCH (10:42)
[2017-08-23] MEDS: ATORVASTATIN CALCIUM 40 MG TAB PO SCH (10:43)
[2017-08-23] MEDS: LISINOPRIL 10 MG TAB PO SCH (10:43)
[2017-08-23] MEDS: ASPIRIN EC 81 MG TAB PO SCH (10:43)
[2017-08-23] MEDS: DOCUSATE SODIUM 100 MG CAP PO SCH (10:43)
[2017-08-23] MEDS: SERTRALINE HCL 50 MG TAB PO SCH (10:43)
[2017-08-23] MEDS: APIXABAN 5 MG TAB PO SCH (10:43)
[2017-08-23] MEDS: Finasteride [Propecia] 1 MG PO SCH (10:48)
--- NOTE | 2017-08-23 11:02 | PDCARPN ---
Cardiology Progress Note Chief Complaint: Patient reports improvement in dyspnea on exertion. States that he would like to go home. Assessment/Plan: Assessment: 76-year-old male with significant history of CAD with previous stents to RCA, lad, circumflex. Paroxysmal atrial flutter, COPD, current tobacco use, and abdominal aortic aneurysm with endograft repair in 2014. Admitted to [facility] on August 14 dyspnea and minimal productive cough, diagnosed with coronavirus. Also found to be in atrial flutter with rapid ventricular response. On admission, negative troponins x3, BNP noted to be elevated at 3610. Echocardiogram done on 08/17/2017 showing aqme-vl-rvtnyhxj LVH mildly reduced LV function with EF estimated 40% global hypokinesis , intermittent septal dyskinesis normal RV size, normal RV function LA was severely dilated, RA is rkfq-ry-ypvyarjujr dilated, trivial TR. In comparison to previous echo done 02/2014, EF since improved (previously 15-20%). Yesterday , Dr. Rosales discontinued diltiazem, due to hypotension, and placed patient on Coreg. Patient converted back to sinus rhythm , started on anticoagulation due to significant [id number] Vasc score of 5. 08/18/2017 acute respiratory failure, Requiring CPAP IV steroids, diuretic therapy, nebulizer treatment, and admission to ICU for 1 day. Esophagram done on 08/19/2017 showing no aspiration , no evidence of esophageal diverticulosis, zenker's diverticulosis, or strictures. Tertiary contraction of esophagus , no hiatal hernia office or definite GERD. Today: patient reports continued improvement in shortness of breath. Denies of any chest pressure or pain. Denies of any lightheadedness with positional changes. Reports continued to have dyspnea on exertion, but continues to improve. Weight continues to be down at 57.6 kg (0.4 kilos down from yesterday) . O>I. JVD around 4 cm above sternal notch at a 45 degree angle. Laboratory studies today showing chloride drop down to 94, increased CO2 to 42, BUN 37, creatinine 0.8, calcium 8.1. Continuous cardiac monitoring last evening showing sinus rhythm with occasional PVC. No other malignant arrhythmias or pauses noted. Plan: 1. Acute respiratory failure: Probable combination of upper respiratory infection, COPD, and systolic heart failure. Continue to improve. On oxygen therapy. Plan on home oxygen. 2. Atrial flutter: Maintaining sinus rhythm. Continue on current dose of carvedilol.. Continue on current dose of Eliquis for anticoagulation. 3. Acute on chronic systolic heart failure: Potentially driven by a flutter with RVR and upper respiratory infection. Continue on Coreg and lisinopril. Most recent echocardiogram shows significant improvement in EF in comparison to previous echo in 2014. Patient was ordered to have torsemide decreased to 10 mg yesterday, unfortunately, this was after he had already received 20 mg. JVD is down. Waited continues to be down. Increase CO2 and decreased chloride. He appears to be approaching euvolemic. Will have him hold torsemide for 2 days , who restart at 10 mg p.o. q.day. Patient potentially be discharged today, would like him to have a repeated BMP done before he is seen in our office comma appointment scheduled with Dr. Chatman on August 28. 4. CAD: Reports no chest pain or symptoms suggesting of angina. Negative troponins throughout hospitalization. Cont on ASA, statin and BB. Have schedule patient for outpatient Radha MPI study to be done the next 10 days for further risk stratification. 5. Hypertension: Better controlled with increased carvedilol, lisinopril, torsemide. 6. Tobacco abuse: Patient has been encouraged to quit smoking altogether. 7. COPD/Upper respiratory infection: Per hospitalist services 8. PVD: Followed by interventional radiology as an outpatient. Have spoke with Dr Valencia, patient to be discharged home this afternoon, he is scheduled to be with home health. He will also be followed with transitional care. I have placed his upcoming appointments in his discharge plan. Have discussed with the patient the importance of daily weight monitoring, and medication compliance. 08/23/17 11:01 Subjective: He reports his fatigue and weakness, and dyspnea on exertion, has improved significantly over the last few days. He denies of any episodes of chest pain or pressure since hospitalization. Reports no palpitations, lightheadedness, near-syncope, or syncopal events. Reviewed/Discussed With: hospitalist (Dr Valencia), other (Dr Cooley) Objective: Vital Signs (8 Hrs) Temp Pulse Pulse Pulse Pulse Resp BP 08/23/17 07:32 36.9 C 61 11 L 136/87 H 08/23/17 04:00 36.7 C 61 63 66 61 18 156/82 H BP BP BP Pulse Ox 08/23/17 07:32 90 L 08/23/17 04:00 135/83 H 129/87 H 156/82 H 97 Intake/Output (24 Hrs) 08/22/17 08/23/17 08/24/17 05:59 05:59 05:59 Intake Total 1640 990 Output Total 2760 1675 350 Balance -1120 -685 -350 Intake: Oral (ml) 1640 990 Output: Urine (ml) 2760 1675 350 Toilet 400 400 Urinal 2360 1275 350 Other: Weight 58.1 kg 57.6 kg Intake Quantity Yes Yes Sufficient Number of Voids Urinal 1 1 Number of Stools Toilet 1 1 Result Diagrams: 08/20/17 03:40 08/23/17 03:27 - Physical Exam Constitutional: WDWN, no apparent distress Ears, Nose, Mouth, Throat: moist mucous membranes Cardiovascular: regular rate and rhythm, no rubs, no gallops, systolic murmur (1 /6 right upper border.), jugular vein distention (4 cm above sternal notch.), pulses symmetric bilat, No carotid bruit Peripheral Pulses: 1+: dorsalis-pedis (R), dorsalis-pedis (L), 2+: carotid (R), carotid (L) Respiratory: other (Rhonchi in upper lobes that clears with cough. Mild expiratory wheeze. No rales noted.) Gastrointestinal: normoactive bowel sounds, no tenderness Skin: warm, no edema Neurologic: AAOx3 Psychiatric: cooperative, interactive, following commands ICD10 Worksheet Patient Problems: Problems Problem Status Onset Atrial flutter Chronic CHF (congestive heart failure) Chronic Chronic Disease Mgmt/Transitional Care Chronic Acute respiratory failure Acute Hypoxia Acute Bronchitis Acute Hematoma Acute Chronic obstructive pulmonary disease with acute exacerbation Acute
[2017-08-23] MEDS: LEVALBUTEROL 1.25 MG/3 ML DEYVIAL IH PRN (11:51)
[2017-08-23 12:36] VITALS: BP 115/69; RESP 16; TEMP 97.5; O2SAT 90
[2017-08-23 12:37] VITALS: PULSE 64
--- NOTE | 2017-08-24 15:13 | ASDISCHSUM ---
Discharge Information Plan Status:Home with Home Health Medically Cleared to Leave:08/22/2017 Discharge Date:08/23/2017 02:00 PM D/C Disposition:Home Health Service [facility] D/C Disposition:Home, Routine, Self-Care Projected Discharge Date:08/23/2017 11:00 AM Transportation at D/C:Family Discharge Delay Reason: Follow-Up Date:08/23/2017 11:00 AM Discharge Slot: Final Diagnosis:CHF, COPD Placement Information Referral Type:*Home Health Care Services Referral ID:[id number] Provider Name:[facility]) Address 1:[address] [place] [address] Address 2: City:[place] Selection Factors: State:[place] Patient Contact Information Contact Name:NGHIA Relationship: Address:[address] [place] [address] Work Phone: City:[place] Alternate Phone: State/Zip Code:[place] [address] Email: Financial Information Financial Class: Primary Plan Desc:MEDICARE INPATIENT Primary Plan Number:[id number] Secondary Plan Desc:[employer]/MDR SUPPLEMENT Secondary Plan Number:[id number] Assessment Information [facility] CM Progress Note CM Note CM Note Notes: Pt admitted with COPD exacerbation and atrial flutter. It is uncler what his DC needs willl be. CM to follow, Date Signed: 08/17/2017 03:57 PM Electronically Signed By:Maritza Mon LCSW [facility] CM Progress Note CM Note CM Note Notes: 08/20/2017 Case Management Note Met w/pt to discuss PT recommendation for home care. Pt requested case management coordinate through his Anna [phone]. Called Anna who agreed with need for certified home health aide and PT. Anna requested referrals to [facility] agencies. Faxed referrals via [employer]. Case Management to notify family tomorrow of Home Care agencies that accepted patient. Anna stated she generally leaves [place] after 9 am to visit her . Case Management d/c poc: Home Care pending acceptance. Case Management to follow. Date Signed: 08/20/2017 03:32 PM Electronically Signed By:Cait Pete RN [facility] CM Progress Note CM Note CM Note Notes: Discussed pts case in morning rounds. Pt has been accepted by [facility]. Pt and does not have a preference as long as the home care agency can staff the follow day after d/c. CM to follow. Plan: HC; RN and PT Date Signed: 08/21/2017 02:11 PM Electronically Signed By:ARTUR Bradshaw [facility] CM Progress Note CM Note CM Note Notes: 08/22/2017 Case Management Note Faxed updates to [facility]. Case Management d/c poc: [facility] certified home health aide and PT Case management available if needs change. Date Signed: 08/22/2017 04:05 PM Electronically Signed By:Cait Pete RN Case Management Discharge Plan Note Case Management Discharge Discharge Order Complete? Answers: Yes Patient to Obtain Answers: via Family Medications Transportation Arranged Answers: Family/Friends Transport will Pick (Date 08/23/2017 01:00 PM & Time) Faxed Final Orders Answers: Yes Family Notified Answers: Yes Notes: Pt's at bedside Discharge Comments Notes: Dc order received. Spoke with RN & MD. Met with pt & his to confirm dc poc; pt agreeable to [facility] services. Address & phone number confirmed. Alerted Shanice, at [facility]; dc orders faxed; confirmed received. No other needs at this time. Date Signed: 08/23/2017 12:54 PM Electronically Signed By:Sondra Dwyer RN Intervention Information Intervention Type:*Incorrect Registration Date of Service:08/16/2017 02:58 PM Patient Type:Inpatient Staff Member:LIAT Mae, Geeta Hours:0.25 Discipline: Severity:1 (0-1 Hours) Comment:Registered observation, written admit order inpatient status. Intervention Type:*IM-Signed Date of Service:08/23/2017 01:29 PM Patient Type:Inpatient Staff Member:LIAT Dwyer Courtney Hours: Discipline: Severity: Comment:
== END 2017-08-23 14:00 | disposition home health service (06) | DRG 291 ==
LOC: OBSVTOIN 14:58 → F2W 18:15 → F2N 08-18 09:10 → F2W 08-19 15:37
PROVIDERS: ADMIT Internal Medicine; ATTEND Internal Medicine
PROC: 5A09357 Assistance with Respiratory Ventilation, Less than 24 Consecutive Hours, Continuous Positive Airway Pressure (ICD-10-PCS; principal; 2017-08-18)
DX: I50.21 Acute systolic (congestive) heart failure (principal); I48.92 Unspecified atrial flutter; I42.8 Other cardiomyopathies; J44.1 Chronic obstructive pulmonary disease with (acute) exacerbation; J06.9 Acute upper respiratory infection, unspecified; B97.29 Other coronavirus as the cause of diseases classified elsewhere; I25.5 Ischemic cardiomyopathy; J96.21 Acute and chronic respiratory failure with hypoxia; I25.10 Atherosclerotic heart disease of native coronary artery without angina pectoris; Z95.5 Presence of coronary angioplasty implant and graft; F17.210 Nicotine dependence, cigarettes, uncomplicated; Z99.81 Dependence on supplemental oxygen; I10 Essential (primary) hypertension; Z95.820 Peripheral vascular angioplasty status with implants and grafts; E78.5 Hyperlipidemia, unspecified; M06.00 Rheumatoid arthritis without rheumatoid factor, unspecified site; Z86.12 Personal history of poliomyelitis
CPT/HCPCS: 96374; 97110-GP; 97116-GP; 97161-GP; G8978-GP-CI; G8979-GP-CI; J1160; J1650; J1940; J2060; J2920; J2930; J7512; J7613

== ENCOUNTER → 2017-09-09 | Outpatient (CLI) | payer OTHER, MEDICARE | LOC: BHFA 13:30 | PROVIDERS: ATTEND Internal Medicine Cardiovascular Disease | DX: I25.10 Atherosclerotic heart disease of native coronary artery without angina pectoris (principal); I50.9 Heart failure, unspecified | CPT/HCPCS: 78452; 93017; A9500; J2785 ==

== ENCOUNTER 2017-10-13 12:55 | Observation (INO) | payer OTHER, MEDICARE ==
--- NOTE | 2017-10-13 13:19 | CPEKG ---
Heart Rate: 156 RR Interval: 385 QRSD Interval: 134 QT Interval: 332 QTC Interval: 535 P Comptche: 0 QRS Comptche: 7 T Wave Comptche: -61 EKG Severity - ABNORMAL ECG - EKG Impression: ATRIAL FLUTTER WITH 2:1 AV BLOCK EKG Impression: IVCD, CONSIDER ATYPICAL RBBB Electronically Signed By: Jae Davis 13-Oct-2017 14:04:14
--- NOTE | 2017-10-13 13:22 | EDPHY ---
H & P Time Seen by Provider: 10/13/17 13:21 HPI/ROS: CHIEF COMPLAINT: Rapid heart rate HISTORY OF PRESENT ILLNESS: 76-year-old man presents with rapid heart rate intermittent since and constant since last night. His previous admission and discharge summary dated 08/23/2017 was personally reviewed head atrial flutter that was eventually medically cardioverted. Rapid heart rate associated with feeling tired decreased exercise tolerance but without chest pain shortness of breath dizziness or syncope. Symptoms moderate today. Not better worse with anything. REVIEW OF SYSTEMS: Eye: no change in vision ENT: no sore throat Cardiac: no chest pain or syncope Pulmonary: Chronic COPD but no change in shortness of breath Abdomen: no vomiting, diarrhea, abdominal pain Musculoskeletal: no back pain Skin: no rash Neuro: no headache Constitutional: no fever : no urinary symptoms A comprehensive 10 point review of systems is otherwise negative aside from elements mentioned in the history of present illness. PAST MEDICAL HISTORY: Atrial flutter, coronary disease w/stenting, AAA, CHF Social history: Recently quit smoking. General Appearance: Alert and conversant, cooperative. Eyes: No scleral icterus. ENT, Mouth: Normal mucous membranes. Respiratory: Normal respiratory effort, breath sounds equal, lungs are clear to auscultation. Cardiovascular: Regular rate and rhythm. Tachycardic. Gastrointestinal: Abdomen is soft and non tender. Neurological: Alert, face symmetric, normal motor and sensory in extremities. Skin: Warm and dry, no rashes. Musculoskeletal: No peripheral edema. Psychiatric: Not agitated. Emergency Department course/MDM: Rate control recommended by his ui software developer. EKG appears to be in atrial flutter. Does not have ischemic symptoms. His last food was part of a Britt at 10:00 a.m. With some milk and he had coffee at 12:30 p.m.. He has been compliant with his Eliquis. 1440: still hr 150 on diltiazem drip. 1449: Talbert to admit. 1500: Converted to normal sinus rhythm, heart rate 72. Smoking Status: Current every day smoker Constitutional: Initial Vital Signs Temperature (C) 36.8 C 10/13/17 13:05 Heart Rate 151 H 10/13/17 13:05 Respiratory Rate 24 H 10/13/17 13:05 Blood Pressure 97/72 L 10/13/17 13:05 O2 Sat (%) 91 L 10/13/17 13:05 O2 Delivery Mode Nasal Cannula O2 (L/minute) 2 Allergies/Adverse Reactions: No Known Allergies Allergy (Verified 10/13/17 13:03) Home Medications: Medication Instructions Recorded Aspirin EC [Aspirin EC 81 mg (*)] 81 mg PO DAILY@08/16/17 Atorvastatin Calcium [Lipitor 80 80 mg PO DAILY@08/16/17 mg] Docusate Sodium [Colace 100 MG (*)] 100 mg PO DAILY@08/16/17 Finasteride [Propecia] 1 mg PO DAILY@08/16/17 Ipratropium/Albuterol [Duoneb (*)] 3 ml IH TID PRN 08/16/17 Sertraline HCl [Zoloft 50mg (*)] 50 mg PO DAILY@08/16/17 Apixaban [Eliquis] 5 mg PO BID #60 tab 08/23/17 Carvedilol [Coreg (*)] 12.5 mg PO BIDMEAL #30 tab 08/23/17 Lisinopril [Zestril 10 mg (*)] 10 mg PO BID #60 tab 08/23/17 Potassium Chloride 10 meq PO DAILY #30 tab.er.prt 08/23/17 Torsemide 10 mg PO DAILY #30 tablet 08/23/17 predniSONE 20 mg PO DAILY #7 tablet 08/23/17 Medical Decision Making - Diagnostics EKG Interpretation: 12-lead EKG interpreted by me; official reading is in trace master. My interpretation is atrial flutter rate 150 with right bundle branch block. Differential Diagnosis: Differential diagnosis considered for tachycardia including but not limited to various causes of malignant dysrhythmia, sinus tachycardia, SVT, atrial flutter and atrial fibrillation. Consult/Admit Bed Type: [place] [id number], medical rate control no cardioversion Critical Care Time: Critical care time spent by me, Dr. Davis, exclusively with the care of this patient was 30 minutes, exclusive of PA or [employer] time and exclusive of separate procedures. The organ system at risk was cardiovascular with atrial flutter and increased heart rate and I ordered IV diltiazem drip, hospitalist consultation, serial exams and diagnostic to stabilize the patient and prevent worsening of the patient's condition. - Data Points Laboratory Results: Laboratory Results 10/13/17 13:21 10/13/17 13:21 10/13/1718 10/13/17 13:21 13:21 13:21 WBC 7.05 10^3/uL 10^3/uL (3.80-9.50) RBC 4.40 10^6/uL 10^6/uL (4.40-6.38) Hgb 13.9 g/dL g/dL (13.7-17.5) Hct 41.3 % % (40.0-51.0) MCV 93.9 fL fL (81.5-99.8) MCH 31.6 pg pg (27.9-34.1) MCHC 33.7 g/dL g/dL (32.4-36.7) RDW 15.1 % % (11.5-15.2) Plt Count 224 10^3/uL 10^3/uL (150-400) MPV 9.8 fL fL (8.7-11.7) Neut % (Auto) 70.3 % % (39.3-74.2) Lymph % (Auto) 17.0 % % (15.0-45.0) [place] % (Auto) 9.6 % % (4.5-13.0) Eos % (Auto) 2.6 % % (0.6-7.6) Baso % (Auto) 0.1 % L % (0.3-1.7) Nucleat RBC Rel Count 0.0 % % (0.0-0.2) Absolute Neuts (auto) 4.95 10^3/uL 10^3/uL (1.70-6.50) Absolute Lymphs (auto) 1.20 10^3/uL 10^3/uL (1.00-3.00) Absolute Monos (auto) 0.68 10^3/uL 10^3/uL (0.30-0.80) Absolute Eos (auto) 0.18 10^3/uL 10^3/uL (0.03-0.40) Absolute Basos (auto) 0.01 10^3/uL L 10^3/uL (0.02-0.10) Absolute Nucleated RBC 0.00 10^3/uL 10^3/uL (0-0.01) Immature Gran % 0.4 % % (0.0-1.1) Immature Gran # 0.03 10^3/uL 10^3/uL (0.00-0.10) PT 14.2 SEC SEC (12.0-15.0) INR 1.08 (0.83-1.16) APTT 36.7 SEC SEC (23.0-38.0) Sodium 144 mEq/L mEq/L (135-145) Potassium 3.8 mEq/L mEq/L (3.5-5.2) Chloride 105 mEq/L mEq/L (97-110) Carbon Dioxide 27 mEq/l mEq/l (22-31) Anion Gap 12 mEq/L mEq/L (8-16) BUN 33 mg/dL H mg/dL (7-23) Creatinine 1.0 mg/dL mg/dL (0.7-1.3) Estimated GFR > 60 Glucose 82 mg/dL mg/dL (70-100) Calcium 8.9 mg/dL mg/dL (8.5-10.4) Troponin I 0.031 ng/mL ng/mL (0.000-0.034) Medications Given: Discontinued Medications Diltiazem HCl 125 mg/ Dextrose 125 mls @ 0 mls/hr IV EDNOW ONE; As Directed PRN Reason: Protocol Stop: 10/13/17 13:54 Last Admin: 10/13/17 14:52 Dose: Not Given Diltiazem/Dextrose (Diltiazem 125mg/125ml (Premix)) 125 mls @ 0 mls/hr IV EDNOW ONE; Titrate PRN Reason: Protocol Stop: 10/13/17 14:31 Last Admin: 10/13/17 14:15 Dose: 125 mls Sodium Chloride (Ns) 500 mls @ 1,500 mls/hr IV ONCE ONE Stop: 10/13/17 14:32 Last Admin: 10/13/17 14:18 Dose: 500 mls Departure - Departure Disposition: [facility] Acute Clinical Impression: Atrial flutter Qualifiers: Atrial flutter type: unspecified Qualified Code(s): I48.92 - Unspecified atrial flutter Condition: Good
[2017-10-13] MEDS ORDERED: DILTIAZEM 125 MG in D5W 125 ML IV ONE (13:53)
[2017-10-13 14:00] LABS: PLATELET COUNT 224 10^3/uL (150-400)
[2017-10-13 14:06] LABS: INR 1.08 (0.83-1.16); PROTIME(PATIENT) 14.2 SEC (12.0-15.0)
[2017-10-13] MEDS ORDERED: NS 500 ML IV ONE (14:13)
[2017-10-13] MEDS ORDERED: DILTIAZEM HCL/D5W 125 ML IV ONE (14:30)
--- NOTE | 2017-10-13 14:59 | CPEKG ---
Heart Rate: 78 RR Interval: 769 P-R Interval: 152 QRSD Interval: 102 QT Interval: 420 QTC Interval: 479 P [place]: 71 QRS [place]: 58 T Wave [place]: 64 EKG Severity - BORDERLINE ECG - EKG Impression: SINUS RHYTHM EKG Impression: BORDERLINE PROLONGED QT INTERVAL Electronically Signed By: Jae Davis 13-Oct-2017 19:59:13
[2017-10-13] MEDS ORDERED: ONDANSETRON 4 MG/2 ML VIAL IVP PRN (16:16)
[2017-10-13] MEDS ORDERED: ONDANSETRON DISINTEGRATING 4 MG TAB PO PRN (16:16)
[2017-10-13] MEDS ORDERED: ZOLPIDEM TARTRATE 5 MG TAB PO PRN (16:16)
[2017-10-13] MEDS ORDERED: ACETAMINOPHEN 325 MG TAB PO PRN (16:16)
[2017-10-13] MEDS ORDERED: ALBUTEROL 60 PUFFS/8 GM MDI IH PRN ×2 (16:16→16:26)
[2017-10-13] MEDS ORDERED: ALBUTEROL 3 ML DEYVIAL IH PRN (16:16)
[2017-10-13] MEDS ORDERED: IPRATROPIUM/ALBUTEROL 3 ML DEYVIAL IH PRN (16:26)
--- NOTE | 2017-10-13 16:48 | GHP ---
[f rep st] HISTORY AND PHYSICAL DATE OF ADMISSION: 10/13/2017 CHIEF COMPLAINT: Atrial flutter at a rapid ventricular response. HISTORY OF PRESENT ILLNESS: This is a 76-year-old male with a known prior history of both heart and lung disease and intermittently still using tobacco, although he reports he may have stopped in the l ast 2 weeks, as he is wearing a nicotine patch. Yesterday evening using his pulse oximeter, he notic ed his heart rate was quite high, and he and his discussed coming into the emergency department, but they did not until this morning. He presents knowing that his heart rate is rapid, but he says he cannot feel it. He does not does not have a feeling of increased shortness of breath, and he has not experienced chest pain, although he said he may have gotten a little sweaty intermittently with t his problem. At no point did he have an anterior chest pain or exertional chest pain, nor did he exp erience orthopnea or PND. At baseline, the gentleman does have dyspnea and he uses O2 at 2 L/minute on a 24-hour basis. Yet again, when walking to the car and come to the emergency department, he agai n did not experience any pain or worsening shortness of breath. He also has noted no pleuritic pain, and there is no swelling in his legs. There has been no recent cough, fever, upper respiratory symp toms, abdominal discomfort, bloating, nausea, or vomiting. He has a history of COPD and still was smoking 3/4 of a pack of cigarettes a day up until approximate ly 2 weeks ago when he stopped tobacco and is using a nicotine patch. He has probably at least a 40- 50 pack year history of the use of tobacco. He has a history of coronary artery disease, and he is s tatus post 5 stents. He also has a history of atrial fibrillation, which has been cardioverted in th e past, he is currently on anticoagulants. His PCP is Dr. Celaya with [facility]. The last echoca rdiogram of note in our records would indicate an ejection fraction of approximately 20%. PAST MEDICAL HISTORY: 1. Heart disease as noted above. 2. COPD as noted above. 3. Seronegative rheumatoid arthritis. 4. Peripheral vascular disease for which he has received a stent and an endovascular abdominal aneur ysm repair. REVIEW OF SYSTEMS: A 10-point review of systems was negative except as noted above. In addition, he does have nocturia every evening. This ranges between 3 and 5 episodes of nocturia which easily aldo belkis him. FAMILY HISTORY: His father of lung cancer. SOCIAL HISTORY: The gentleman is for over 50 years. He recently stopped his use of tobacco, although he has at least a 50 if not a 60 pack-year history of tobacco. He has not used alcohol in the last 40 years. 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 MEDICATIONS: Listed in the EMR and will be reconciled. Notably, his home medications include Coreg, Lipitor, aspirin, Eliquis, a Proventil inhaler, Zestril, DuoNeb, torsemide, Zoloft, and potassium. ALLERGIES: No known allergies. PHYSICAL EXAMINATION: GENERAL: This is a pleasant, alert gentleman who appears in no distress. VIT AL SIGNS: His blood pressure was slightly low. As I was examining the gentleman, he converted to a normal sinus rhythm at approximately 70. He was unaware of the rapid heart rate, and he was unaware that he had converted. With conversion, his blood pressure liang to 115/78. He was not experiencing any chest pain. HEENT: Within normal limits and, notably, he had no lesions on the tongue, buccal m ucosa. Scalp was atraumatic. CHEST WALL: Barrel-shaped deformity and limited inspiratory excursion . LUNGS: He has diminished breath sounds bilaterally with a few scattered crackles in the bases but no E/A, increased dullness, or wheezing. HEART: He has a singular S1, S2. There was no murmur, ga llop, or rub. ABDOMEN: Slightly protuberant. Normoactive bowel sounds. No masses, tenderness, or organomegaly. EXTREMITIES: No edema, cyanosis, or clubbing. Pulses are 2+ at the femorals, carotid s, dorsalis pedis, posterior tibial, without bruits. LABORATORY: His CBC is entirely normal, coagulation is normal, and the chemistry panel was also norm al, except for a slight increased BUN at 33. Troponin was normal at 0.031, and a series will be orde red. As noted above, the gentleman converted to normal sinus rhythm [facility] He is on carvedilol 12.5 mg p.o. twice daily and, with his blood pressure adequate, I alysha moralesve we can increase his carvedilol for better rate control. Cardiology will be consulted. Electrocardiogram performed post cardioversion showed a normal sinus rhythm at 78. He had normal VA and QRS interval but had a borderline prolonged QT interval. ASSESSMENT: 1. Acute atrial flutter, a 2:1, with spontaneous conversion to normal sinus rhythm in the 70s to 80s . He is on a diltiazem drip at this time. The plan is to increase the gentleman's beta lilian and, potentially, he may require diltiazem for better rate control. A cardiac echo will be ordered, and Cardiology will be consulted. 2. Chronic obstructive pulmonary disease. At baseline, the gentleman has chronic hypoxic respirator y failure requiring 2 L of oxygen. This will be continued. He has adequate oxygenation at this time . A chest x-ray will also be ordered. 3. Known coronary artery disease with previous stents x5. He did not experience any chest pain with this episode. Troponin series and a morning ECG will be ordered. 4. Nocturia. This is symptomatic but not troublesome to the gentleman. I have not performed a rect al exam, although a referral to Urology for possible examination and treatment would be helpful. I a m going to institute Flomax in the interest of assisting and potentially decreasing his nocturia. PLAN: The gentleman will be admitted to observation status. His code status is full. His power of trade mark attorney is his . DVT prophylaxis will be with Lovenox. /[id number]/MODL
[2017-10-13] MEDS: CARVEDILOL 25 MG TAB PO SCH (17:20)
[2017-10-13] MEDS: TAMSULOSIN HCL 0.4 MG CAP PO SCH (17:21)
[2017-10-13] MEDS: APIXABAN 5 MG TAB PO SCH (21:29)
[2017-10-14 04:31] LABS: PLATELET COUNT 169 10^3/uL (150-400)
[2017-10-14 07:19] VITALS: BP 126/80; PULSE 73; RESP 14; TEMP 97.6; O2SAT 90
--- NOTE | 2017-10-14 07:31 | GCON ---
[f rep st] CONSULTATION CARDIOLOGY CONSULT REFERRING PHYSICIAN: Robert Talbert Jr., MD CHIEF COMPLAINT: A-flutter, shortness of breath. HISTORY OF PRESENT ILLNESS: This is a 76-year-old male with history of paroxysmal atrial flutter, CO PD, cardiomyopathy, PAD, who was admitted for high heart rate, palpitations and intermittent shortnes s of breath. The patient was found to be in atrial flutter with a rate of 150. The patient was shahab kiara with IV Cardizem in the emergency room and converted to normal sinus rhythm at approximately 3:00 p.m. The patient was admitted for observation overnight. Clinically, for the last 16 hours, the maria del rosario lentz has been in normal sinus rhythm. Denies any new discomfort. He actually feels much better and is looking forward to going home. ECG shows sinus rhythm currently with no acute ST changes. Blood pressure is currently stable. PAST MEDICAL HISTORY: Significant for cardiomyopathy, COPD, rheumatoid arthritis, PAD, paroxysmal at rial flutter. Socially the patient is still an active smoker despite COPD, coronary artery disease, cardiomyopathy, atrial flutter. FAMILY HISTORY: Not contributory. SOCIAL HISTORY: Smoker. Occasional alcohol use. No drug use. REVIEW OF SYSTEMS: Patient denies any vision changes. No headache. No palpitations. No chest pain . No shortness of breath at rest. No abdominal pain. No lower extremity pain. PHYSICAL EXAM: VITAL SIGNS: Afebrile at 98.6, blood pressure 110/70 with a heart rate of 72, respir ations 12, saturating 95% on 2 L nasal cannula. HEENT: Pupils equal, round, reactive to light and a ccommodation. Extraocular muscles intact. CARDIOVASCULAR: Regular rate and rhythm. S1, S2. LUNGS : Scattered wheezes bilaterally. ABDOMEN: Soft, nontender. No guarding. EXTREMITIES: No clubbin g, no cyanosis, no edema. NEUROLOGIC: Patient is alert and oriented x3. LABORATORY VALUES: Currently show a white cell of 5.5, hemoglobin 10.8, hematocrit 33, platelets of 169, creatinine of 0.9, BUN 29. ASSESSMENT/PLAN: Atrial flutter/palpitations. At this time, patient has been converted to sinus rhy thm without any continuous intravenous medications. He has been in normal sinus rhythm for approxima tely 16 hours. I would feel comfortable discharging the patient this morning. His Coreg dose can be increased to 25 p.o. twice daily and should follow up with Dr. Celaya as an outpatient [facility]. We can hold off on the cardiac echo as he has been getting routine echocardiograms in our office. Thank you for the consultation. /[id number]/MODL
[2017-10-14] MEDS: TAMSULOSIN HCL 0.4 MG CAP PO SCH (08:03)
[2017-10-14] MEDS: CARVEDILOL 25 MG TAB PO SCH (08:03)
[2017-10-14] MEDS: APIXABAN 5 MG TAB PO SCH (08:03)
--- NOTE | 2017-10-14 09:42 | GDS ---
[f rep st] DISCHARGE SUMMARY DISCHARGE DIAGNOSIS: 1. Atrial flutter with rapid ventricular rate since converted to normal sinus rhythm. 2. Coronary artery disease with history of stents x5, stable. 3. Chronic systolic heart failure with an ejection fraction of 40% per echocardiogram 07/2017. 4. Chronic obstructive pulmonary disease, stable. 5. Peripheral vascular disease. CONSULTANTS: Dr. Aftab James, Cardiology. HISTORY OF DETAILS: Please see dictated history and physical dated October 13, 2017. In brief, Mr. Cali is a 76-year-old male with a history of coronary artery disease, chronic systolic heart failure and COPD, who presents to the emergency department with a rapid heart rate. He was found to be in atrial flutter and was admitted to the hospital for further management. HOSPITAL COURSE: Patient was admitted to cardiac telemetry unit. He was initiated on an IV diltiazem drip and soon after converted back to normal sinus rhythm. Upon further questioning this morning, it turns out he has not been taking his Coreg, he thinks for the past 2 to 3 weeks because he could not get it. I discussed with him the importance of maintaining this medication on a daily basis as it is helping to treat his cardiomyopathy as well as maintain normal sinus rhythm and rate control in the setting of atrial flutter. Therefore, he will continue Coreg 12.5 mg p.o. twice daily, he is given a new refill of #30, and also continue lisinopril 5 mg daily. Close followup with outpatient Cardiology is recommended. Pt's condition improved more quickly than anticipated and he is discharged home. DISPOSITION: Patient is discharged home in stable condition. FOLLOWUP: 1. Dr. Bhanu Hamilton or Dr. David Wood at [facility]. 2. Dr. Aure Chu, primary care. DISCHARGE MEDICATIONS: Please see [facility] for complete updated outpatient medication list. New prescriptions on discharge include Coreg 12.5 mg p.o. twice daily #30, no refills, lisinopril 5 mg p.o. daily #30, no refills. He will continue all other outpatient medications as previously prescribed including sertraline 50 mg p.o. daily, atorvastatin 80 mg p.o. daily, aspirin 81 mg p.o. daily, DuoNeb, Eliquis 5 mg p.o. twice daily, albuterol, torsemide 10 mg p.o. daily, and potassium 10 mEq p.o. daily. /[id number]/MODL MTDD
[2017-10-14] MEDS ORDERED: POTASSIUM CL 10 MEQ TAB PO SCH (12:00)
[2017-10-14] MEDS ORDERED: TORSEMIDE 10 MG TAB PO SCH (12:00)
[2017-10-14] MEDS ORDERED: ASPIRIN EC 81 MG TAB PO SCH (12:00)
[2017-10-14] MEDS ORDERED: ATORVASTATIN CALCIUM 40 MG TAB PO SCH (12:00)
[2017-10-14] MEDS ORDERED: SERTRALINE HCL 50 MG TAB PO SCH (12:00)
--- NOTE | 2017-10-14 15:25 | ASDISCHSUM ---
Discharge Information Plan Status:Home with No Needs Medically Cleared to Leave:10/14/2017 Discharge Date:10/14/2017 09:55 AM CM D/C Disposition:Home, Routine, Self-Care ADT D/C Disposition:Home, Routine, Self-Care Projected Discharge Date:10/14/2017 09:55 AM Transportation at D/C: Discharge Delay Reason: Follow-Up Date:10/14/2017 09:55 AM Discharge Slot: Final Diagnosis: Placement Information Patient Contact Information Contact Name:NGHIA Relationship: Address:[address] [place] [address] Work Phone: City:[place] Alternate Phone: [facility]/Zip Code:[place] [address] Email: Financial Information Financial Class:Medicare Primary Plan Desc:MEDICARE OUTPATIENT Primary Plan Number:[id number] Secondary Plan Desc:MILES/VENU SUPPLEMENT Secondary Plan Number:[id number] Assessment Information LACE LACE Length of stay for Answers: Less than 1 day current admission Acuity / Level of Answers: No Care: Did the patient have an inpatient admission? Comorbidities - select Answers: Chronic pulmonary disease all that apply Peripheral vascular disease Other Notes: rheumatoid arthritis # of Emergency department Answers: 3-4 visits in the last 6 months Score: 7 Date Signed: 10/14/2017 03:24 PM Electronically Signed By:Cait Pete RN Intervention Information
== END 2017-10-14 09:55 | disposition home or self-care (01) ==
LOC: F2W 16:33
PROVIDERS: ADMIT Internal Medicine Pulmonary Disease; ATTEND Hospitalist
DX: I48.92 Unspecified atrial flutter (principal); I48.91 Unspecified atrial fibrillation; Z91.138 Patient's unintentional underdosing of medication regimen for other reason; I42.9 Cardiomyopathy, unspecified; I25.10 Atherosclerotic heart disease of native coronary artery without angina pectoris; I50.22 Chronic systolic (congestive) heart failure; J44.9 Chronic obstructive pulmonary disease, unspecified; R35.1 Nocturia; I73.9 Peripheral vascular disease, unspecified; F17.210 Nicotine dependence, cigarettes, uncomplicated; I71.4 Abdominal aortic aneurysm, without rupture; M06.09 Rheumatoid arthritis without rheumatoid factor, multiple sites; Z79.01 Long term (current) use of anticoagulants; Z95.5 Presence of coronary angioplasty implant and graft; Z99.81 Dependence on supplemental oxygen
CPT/HCPCS: 71046; 93005; G0378; 96374

== ENCOUNTER 2017-11-06 18:53 | Emergency (ER) | payer OTHER, MEDICARE ==
[2017-11-06] MEDS ORDERED: IPRATROPIUM/ALBUTEROL 3 ML DEYVIAL IH ONE (19:10)
--- NOTE | 2017-11-06 19:15 | EDPHY ---
H & P Stated Complaint: ABD PAIN/URINARY RETENTION Time Seen by Provider: 11/06/17 19:06 HPI/ROS: CHIEF COMPLAINT: Urinary retension HISTORY OF PRESENT ILLNESS: The patient is a 76-year-old man who comes to the emergency department stating that he has not urinated in 8 hr. He does have a history of nocturia and has been referred to urologist but has not seen one. He did have a catheter once several years ago. He takes Eliquis for history of atrial flutter as well as has a history of coronary artery disease and congestive heart failure, peripheral vascular disease and COPD. He is currently tachypneic and wheezing but states that this is pretty much his baseline. No fevers. REVIEW OF SYSTEMS: Constitutional: denies: chills, fever, recent illness, recent injury EENTM: denies: blurred vision, double vision, nose congestion Respiratory: See HPI Cardiac: denies: chest pain, irregular heart rate, lightheadedness, palpitations Gastrointestinal/Abdominal: denies: abdominal pain, diarrhea, nausea, vomiting, blood streaked stools Genitourinary: See HPI Musculoskeletal: denies: joint pain, muscle pain Skin: denies: lesions, rash, jaundice, bruising Neurological: denies: headache, numbness, paresthesia, tingling, dizziness, weakness Hematologic/Lymphatic: denies: blood clots, easy bleeding, easy bruising Immunologic/allergic: denies: HIV/AIDS, transplant EXAM: GENERAL: Well-appearing, well-nourished and in no acute distress. HEAD: Atraumatic, normocephalic. EYES: Pupils equal round and reactive to light, extraocular movements intact, sclera anicteric, conjunctiva are normal. ENT: TMs normal, nares patent, oropharynx clear without exudates. Moist mucous membranes. NECK: Normal range of motion, supple without lymphadenopathy or JVD. LUNGS: Tachypneic, wheezing bilaterally HEART: Regular rate and rhythm without murmurs, rubs or gallops. ABDOMEN: Distended suprapubic, slightly tender, Soft, nontender, normoactive bowel sounds. No guarding, no rebound. No masses appreciated. BACK: No CVA tenderness, no spinal tenderness, step-offs or deformities EXTREMITIES: Normal range of motion, no pitting or edema. No clubbing or cyanosis. NEUROLOGICAL: Cranial nerves II through XII grossly intact. Normal speech, normal gait. 5/5 strength, normal movement in all extremities, normal sensation PSYCH: Normal mood, normal affect. SKIN: Warm, dry, normal turgor, no visible rashes or lesions. Source: Patient Exam Limitations: No limitations - Personal History Current Tetanus/Diphtheria Vaccine: Yes - Medical/Surgical History Hx Asthma: No Hx Chronic Respiratory Disease: Yes Hx Diabetes: No Hx Cardiac Disease: Yes Hx Renal Disease: No Hx Cirrhosis: No Hx Alcoholism: No Hx HIV/AIDS: No Hx Splenectomy or Spleen Trauma: No Other PMH: abd aortic aneurysm repair, COPD, HTN, Hyperlipidemia, PVD, CHF, former smoker, CAD with stents, arthritis, polio, Aflutter, nocturia - Family History Significant Family History: Heart disease - Social History Smoking Status: Former smoker Alcohol Use: Sober Drug Use: None Constitutional: Initial Vital Signs Temperature (C) 36.4 C 11/06/17 18:57 Heart Rate 70 11/06/17 18:57 Respiratory Rate 24 H 11/06/17 18:57 Blood Pressure 194/105 H 11/06/17 18:57 O2 Sat (%) 89 L 11/06/17 18:57 O2 Delivery Mode Nasal Cannula O2 (L/minute) 4 Allergies/Adverse Reactions: No Known Allergies Allergy (Verified 11/06/17 18:57) Home Medications: Medication Instructions Recorded Aspirin EC [Aspirin EC 81 mg (*)] 81 mg PO DAILY@08/16/17 Atorvastatin Calcium [Lipitor 80 80 mg PO DAILY@08/16/17 mg] Ipratropium/Albuterol [Duoneb (*)] 3 ml IH TID PRN 08/16/17 Sertraline HCl [Zoloft 50mg (*)] 50 mg PO DAILY@08/16/17 Apixaban [Eliquis] 5 mg PO BID #60 tab 08/23/17 Albuterol [Proventil Inhaler HFA 1 - 2 puffs IH Q4H PRN 10/13/17 (*)] Potassium Chloride 10 meq PO DAILY@10/13/17 Torsemide 10 mg PO DAILY@10/13/17 Carvedilol [Coreg (*)] 12.5 mg PO BIDMEAL #30 tab 10/14/17 Lisinopril 5 mg PO DAILY #30 tablet 10/14/17 Medical Decision Making - Diagnostics Imaging: Discussed imaging studies w/ case finisher Radiologist ED Course/Re-evaluation: Uriarte catheter was placed and the patient has put out 600 cc of yellow urine, no blood. He states that he still is having abdominal pain however. He thought he needed to have a bowel movement and tried but could not. His last BM was last night. He has a history of appendectomy but no other abdominal surgeries. We will obtain lab work and abdominal CT. 9:40 p.m. I have been in the room several times discussing the CT results with the patient. He has a aortic by femoral stent that appears to be mal functioning. I spoke with Bhanu Hamilton from interventional as well as Dr. Rodriguez and Dr. Harding. We do not have vascular surgery or interventional procedure to offer the patient here. I will transfer him to [facility]. I spoke with ER Dr. Marquis who accepted but also requested that I speak with the vascular surgeon Andrew. We will call him through the access center. We will fly him in a helicopter. 10:05 p.m. I discussed the case with Dr. Morales in the vascular surgeon at [facility]. He will accept the patient and wishes me to speak with the distribution warehouse manager as well. He recommends keeping the blood pressure between 100-140. He agrees with the esmolol drip. We discussed case center which she said to hold at this time. Also spoke with Dr. Kasper the distribution warehouse manager 10:15 p.m. I spoke with the patient and . They are on board with the transfer. The patient states he does not want to have CPR or emergency intubation. He is okay with intubation for surgery. She also has a living will with her that instructed to withdrawal care after 7 days or if the resuscitation is futile. Differential Diagnosis: Partial list of the Differential diagnosis considered include but were not limited to; urinary retention, AAA and although unlikely based on the history and physical exam, I also considered ischemic bowel, biliary disease, appendicitis. Critical Care Time: Critical care time spent by me, Dr. Lockhart exclusive with this patient was 45 minutes, exclusive of the PA time exclusive of procedures. The organ system that was at risk was cardiovascular and I gave diagnostics, consultation, transfer and medication to prevent worsening of the patient's condition - Data Points Laboratory Results: Laboratory Results 11/06/17 19:50 11/06/17 19:50 Medications Given: Discontinued Medications Albuterol/Ipratropium (Duoneb) 3 ml IH EDNOW ONE Stop: 11/06/17 19:11 Last Admin: 11/06/17 19:15 Dose: 3 ml Hydromorphone HCl (Dilaudid) 0.5 mg IVP EDNOW ONE Stop: 11/06/17 19:44 Last Admin: 11/06/17 20:02 Dose: 0.5 mg Hydromorphone HCl (Dilaudid) 0.5 mg IVP EDNOW ONE Stop: 11/06/17 21:12 Last Admin: 11/06/17 21:16 Dose: 0.5 mg Sodium Chloride (Ns) 1,000 mls @ 0 mls/hr IV EDNOW ONE; Wide Open PRN Reason: Protocol Stop: 11/06/17 19:43 Last Admin: 11/06/17 20:03 Dose: 1,000 mls Esmolol HCl/Sodium Chloride (Brevibloc 10 Mg/Ml Premix) 250 mls @ 0 mls/hr IV CONT SHARONDA; Titrate PRN Reason: Protocol Stop: 05/05/18 21:44 Last Admin: 11/06/17 21:59 Dose: 250 mls Ketorolac Tromethamine (Toradol) 15 mg IVP ONCE ONE Stop: 11/06/17 20:09 Last Admin: 11/06/17 20:12 Dose: 15 mg Departure - Departure Disposition: [facility] Clinical Impression: Abdominal aortic aneurysm Qualifiers: Presence of rupture: without rupture Qualified Code(s): I71.4 - Abdominal aortic aneurysm, without rupture Hypertension Qualifiers: Hypertension type: essential hypertension Qualified Code(s): I10 - Essential ( primary) hypertension Condition: Critical Referrals: Hollie Teran MD [Primary Care Provider] - As per Instructions
[2017-11-06] MEDS ORDERED: NS 1,000 ML IV ONE (19:42)
[2017-11-06] MEDS ORDERED: HYDROmorphONE/DILAUDID 2 MG/ML INJ IVP ONE ×2 (19:43→21:11)
[2017-11-06 20:03] LABS: PLATELET COUNT 245 10^3/uL (150-400)
[2017-11-06] MEDS ORDERED: KETOROLAC 15 MG/1 ML SDV IVP ONE (20:08)
[2017-11-06] MEDS ORDERED: IOPAMIDOL (ISOVUE-300) 100 ML BTL ONE (20:36)
[2017-11-06] MEDS ORDERED: ESMOLOL/NACL 250 ML IV SCH (21:45)
[2017-11-06 23:23] VITALS: BP 141/96
== END 2017-11-06 23:44 | disposition short-term general hospital (02) ==
PROC: 0T9B70Z Drainage of Bladder with Drainage Device, Via Natural or Artificial Opening (ICD-10-PCS; principal; 2017-11-06)
DX: I71.4 Abdominal aortic aneurysm, without rupture (principal); E86.9 Volume depletion, unspecified; J44.9 Chronic obstructive pulmonary disease, unspecified; I11.0 Hypertensive heart disease with heart failure; I50.9 Heart failure, unspecified; I25.10 Atherosclerotic heart disease of native coronary artery without angina pectoris; Z87.891 Personal history of nicotine dependence; Z79.82 Long term (current) use of aspirin; Z79.01 Long term (current) use of anticoagulants
CPT/HCPCS: 51702; 74177; 96361; 96365; 96375; 96376; 99285; J1170; J1885; Q9967

== ENCOUNTER 2017-11-20 05:37 | Inpatient (IN) | payer OTHER, MEDICARE ==
[2017-11-20] MEDS ORDERED: ceFAZolin 2 GM/SWFI 2 GM/20 ML SYR IVP ONE (06:05)
[2017-11-20] MEDS ORDERED: LIDOCAINE 1% 2 ML INJ ONE (06:15)
--- NOTE | 2017-11-20 06:59 | PDHPUP ---
History & Physical Update H&P update statement: This history and physical update is based on an assessment of the patient which was completed after admission or registration (within 24 hours), but prior to the surgery/procedure. H&P update: H&P reviewed & patient examined, no change in patient's condition since H&P completed
[2017-11-20] MEDS ORDERED: MIDAZOLAM 2 MG/2 ML VIAL ONE ×2 (07:03→09:00)
[2017-11-20] MEDS ORDERED: THROMBIN (BOVINE) 20,000 UNIT VIAL TP ONE (07:04)
[2017-11-20] MEDS ORDERED: HEPARIN 1000 UNIT/1 ML MDV ONE (07:04)
[2017-11-20] MEDS ORDERED: HEPARIN 10,000 UNIT/10 ML MDV (1,000 UNIT/ML) ONE ×3 (07:05→07:36)
[2017-11-20] MEDS ORDERED: CITRATE DEXTROSE SOLN 500 ML BAG ONE ×2 (07:08→10:10)
--- NOTE | 2017-11-20 07:30 | PDANEPAE ---
ANE History of Present Illness AAA ANE Past Medical History - Cardiovascular History Hx Hypertension: Yes Hx Arrhythmias: Yes Hx Coronary Artery / Peripheral Vascular Disease: Yes Hx CHF / Valvular Disease: Yes Cardiovascular History Comment: HX OF AFIB CARDIOVERSION 2013. STENTS X 5. LBBB. HYPERLIPIDEMIA. - Pulmonary History Hx COPD: Yes Hx Asthma/Reactive Airway Disease: No Hx Recent Upper Respiratory Infection: No Hx Oxygen in Use at Home: Yes Hx Sleep Apnea: No Sleep Apnea Screening Result - Last Documented: Positive Pulmonary History Comment: HYPOXIA. HX OF BRONCHITIS. PULMONARY NODULE - Neurologic History Hx Cerebrovascular Accident: No Hx Seizures: No Hx Dementia: No - Endocrine History Hx Diabetes: No - Renal History Hx Renal Disorders: No - Liver History Hx Hepatic Disorders: No - Neurological & Psychiatric Hx Hx Neurological and Psychiatric Disorders: No - Cancer History Hx Cancer: No - Congenital Disorder History Hx Congenital Disorders: No - GI History Hx Gastrointestinal Disorders: No - Other Health History Other Health History: PVD. REMITTING SERONEGATIVE SYMMETRICAL SYNOVITIS WITH PITTING EDEMA. 03/2018 IT HAD BEEN 25 YEARS SINCE PT HAD SEEN A PHYSICIAN - Chronic Pain History Chronic Pain: No - Surgical History Prior Surgeries: 2012 STENT 2012. BETO/ CARDIOVERSION 02/2014. APPY. AAA 2014. ING HERNIA. VENTRAL HERNIA. TONSILLECTOMY ANE Review of Systems Review of Systems: - Exercise capacity METS (RN): 2 METS ANE Patient History - Allergies Allergies/Adverse Reactions: No Known Allergies Allergy (Verified 11/06/17 18:57) - Home Medications Home Medications: Aspirin EC [Aspirin EC 81 mg (*)] 81 mg PO DAILY@08/16/17 [Last Taken ] Atorvastatin Calcium [Lipitor 80 mg] 80 mg PO DAILY@08/16/17 [Last Taken 09/07] Ipratropium/Albuterol [Duoneb (*)] 3 ml IH TID PRN 08/16/17 [Last Taken 05:15] Sertraline HCl [Zoloft 50mg (*)] 50 mg PO DAILY@08/16/17 [Last Taken 11/19/17 ] Albuterol [Proventil Inhaler HFA (*)] 1 - 2 puffs IH Q4H PRN 10/13/17 [Last Taken 11/20/17 05:15] Potassium Chloride 10 meq PO DAILY@12 10/13/17 [Last Taken 11/19/17] Torsemide 10 mg PO DAILY@12 10/13/17 [Last Taken 11/19/17] Colace 100 MG (*) DAILY 11/18/17 [Last Taken 11/19/17] Proventil Inhaler HFA (*) Q4 11/18/17 [Last Taken Unknown] Spironolactone DAILY 11/18/17 [Last Taken 11/19/17] - NPO status NPO Status: no food or drink >8 hours NPO Since - Liquids (Date): 11/20/17 NPO Since - Liquids (Time): 04:00 NPO Since - Solids (Date): 11/19/17 NPO Since - Solids (Time): 23:00 - Smoking Hx Smoking Status: Former smoker - Family Anes Hx Family Hx Anesthesia Complications: NONE ANE Labs/Vital Signs - Labs Result Diagrams: 11/20/17 07:20 11/20/17 07:20 - Vital Signs Blood Pressure: 86/59 Heart Rate: 63 Respiratory Rate: 16 O2 Sat (%): 91 Height: 163.83 cm Weight: 62.596 kg ANE Physical Exam - Airway Mallampati Score: Class 2 Mouth exam: normal dental/mouth exam - Cardiovascular Cardiovascular: irregularly irregular ANE Anesthesia Plan Anesthesia Plan: general endotracheal anesthesia Lines/Monitors: arterial line, central line
[2017-11-20] MEDS ORDERED: MIDAZOLAM 2 MG/2 ML VIAL IVP ONE (07:32)
[2017-11-20] MEDS ORDERED: DEXAMETHASONE 4 MG/ML VIAL ONE (07:34)
[2017-11-20] MEDS ORDERED: ROCURONIUM 100 MG/10 ML VIAL ONE (07:34)
[2017-11-20] MEDS ORDERED: LIDOCAINE 2% 5 ML SDV ONE ×3 (07:34→11:52)
[2017-11-20] MEDS ORDERED: PHENYLEPHRINE 10 MG/ML SDV ONE ×2 (07:34→09:57)
[2017-11-20 07:36] LABS: PLATELET COUNT 212 10^3/uL (150-400)
[2017-11-20] MEDS ORDERED: fentaNYL 250 MCG/5 ML INJ ONE (07:37)
[2017-11-20] MEDS ORDERED: PROPOFOL 200 MG/20 ML VIAL ONE (07:37)
[2017-11-20 07:48] LABS: INR 1.05 (0.83-1.16); PROTIME(PATIENT) 13.9 SEC (12.0-15.0)
[2017-11-20] MEDS ORDERED: ONDANSETRON 4 MG/2 ML VIAL IVP PRN (07:51)
[2017-11-20] MEDS ORDERED: LR 1,000 ML IV ONE (07:53)
[2017-11-20] MEDS ORDERED: NARCOTIC DRIP BAG-TOTAL ALL TYPES IV PRN (07:55)
--- NOTE | 2017-11-20 07:56 | PDANEPAE ---
ANE History of Present Illness Patient presents for open 'triple A' repair ANE Past Medical History - Cardiovascular History Hx Hypertension: Yes Hx Arrhythmias: Yes Hx Coronary Artery / Peripheral Vascular Disease: Yes Hx CHF / Valvular Disease: Yes Cardiovascular History Comment: HX OF AFIB CARDIOVERSION 2013. STENTS X 5. LBBB. HYPERLIPIDEMIA. - Pulmonary History Hx COPD: Yes Hx Asthma/Reactive Airway Disease: No Hx Recent Upper Respiratory Infection: No Hx Oxygen in Use at Home: Yes Hx Sleep Apnea: No Sleep Apnea Screening Result - Last Documented: Positive Pulmonary History Comment: HYPOXIA. HX OF BRONCHITIS. PULMONARY NODULE - Neurologic History Hx Cerebrovascular Accident: No Hx Seizures: No Hx Dementia: No - Endocrine History Hx Diabetes: No - Renal History Hx Renal Disorders: No - Liver History Hx Hepatic Disorders: No - Neurological & Psychiatric Hx Hx Neurological and Psychiatric Disorders: No - Cancer History Hx Cancer: No - Congenital Disorder History Hx Congenital Disorders: No - GI History Hx Gastrointestinal Disorders: No - Other Health History Other Health History: PVD. REMITTING SERONEGATIVE SYMMETRICAL SYNOVITIS WITH PITTING EDEMA. 03/2018 IT HAD BEEN 25 YEARS SINCE PT HAD SEEN A PHYSICIAN - Chronic Pain History Chronic Pain: No - Surgical History Prior Surgeries: 2012 STENT 2012. BEOT/ CARDIOVERSION 02/2014. APPY. AAA 2014. ING HERNIA. VENTRAL HERNIA. TONSILLECTOMY ANE Review of Systems Review of Systems: - Exercise capacity METS (RN): 2 METS ANE Patient History - Allergies Allergies/Adverse Reactions: No Known Allergies Allergy (Verified 11/06/17 18:57) - Home Medications Home medications: home medication list seen and reviewed Home Medications: Aspirin EC [Aspirin EC 81 mg (*)] 81 mg PO DAILY@08/16/17 [Last Taken ] Atorvastatin Calcium [Lipitor 80 mg] 80 mg PO DAILY@08/16/17 [Last Taken 09/07] Ipratropium/Albuterol [Duoneb (*)] 3 ml IH TID PRN 08/16/17 [Last Taken 05:15] Sertraline HCl [Zoloft 50mg (*)] 50 mg PO DAILY@08/16/17 [Last Taken 11/19/17 ] Albuterol [Proventil Inhaler HFA (*)] 1 - 2 puffs IH Q4H PRN 10/13/17 [Last Taken 11/20/17 05:15] Potassium Chloride 10 meq PO DAILY@12 10/13/17 [Last Taken 11/19/17] Torsemide 10 mg PO DAILY@12 10/13/17 [Last Taken 11/19/17] Colace 100 MG (*) DAILY 11/18/17 [Last Taken 11/19/17] Proventil Inhaler HFA (*) Q4 11/18/17 [Last Taken Unknown] Spironolactone DAILY 11/18/17 [Last Taken 11/19/17] - NPO status NPO Status: no food or drink >8 hours NPO Since - Liquids (Date): 11/20/17 NPO Since - Liquids (Time): 04:00 NPO Since - Solids (Date): 11/19/17 NPO Since - Solids (Time): 23:00 - Smoking Hx Smoking Status: Former smoker - Family Anes Hx Family Hx Anesthesia Complications: NONE ANE Labs/Vital Signs - Labs Result Diagrams: 11/20/17 07:20 11/20/17 07:20 - Vital Signs Blood Pressure: 86/59 Heart Rate: 63 Respiratory Rate: 16 O2 Sat (%): 91 Height: 163.83 cm Weight: 62.596 kg ANE Physical Exam - Airway Neck exam: FROM Mallampati Score: Class 1 - Pulmonary Pulmonary: no respiratory distress - Cardiovascular Cardiovascular: regular rate and rhythym - ASA Status ASA Status: III ANE Anesthesia Plan Anesthesia Plan: epidural (Thoracic epidural for PO pain. RBA discussed)
[2017-11-20] MEDS ORDERED: fentaNYL 2MCG/ML/BUP 0.1% RTU 100 ML EP SCH (08:00)
[2017-11-20] MEDS ORDERED: ALBUMIN 5% 250 ML BOTTLE IV ONE ×2 (09:05→10:48)
[2017-11-20] MEDS ORDERED: FUROSEMIDE 20 MG/2 ML VIAL ONE (09:12)
[2017-11-20] MEDS ORDERED: EPINEPHrine 1 MG/ML INJ ONE (09:13)
[2017-11-20] MEDS ORDERED: DOPamine/DEXTROSE/250 ML BAG IV ONE (10:09)
[2017-11-20] MEDS ORDERED: CALCIUM CHLORIDE 1 GM/10 ML INJ ONE (10:33)
[2017-11-20] MEDS ORDERED: SODIUM BICARBONATE 50 MEQ/50 ML SYR ONE (10:33)
[2017-11-20] MEDS ORDERED: ROCURONIUM 50 MG/5 ML VIAL ONE (10:38)
[2017-11-20] MEDS ORDERED: ONDANSETRON 4 MG/2 ML VIAL ONE (11:38)
[2017-11-20] MEDS ORDERED: SUGAMMADEX SODIUM 200 MG/2 ML VIAL IVP ONE (11:44)
--- NOTE | 2017-11-20 12:25 | POSTANESTH ---
Post Anesthetic Evaluation Cardiovascular Status: Normal, Stable Respiratory Status: Similar to Pre-op Cond., Tx Decrease in SpO2 Level of Consciousness/Mental Status: Can Participate in Eval Pain Control: Adequate, Prn Tx Ordered Nausea/Vomiting Control: Adequate, Prn Tx Ordered Complications Possibly Related to Anesthesia: None Noted
--- NOTE | 2017-11-20 12:26 | POSTOPPROG ---
Post Op Note Date of Operation: 11/20/17 Surgeon: Jordan Pemberton Slab Conditioner Supervisor: Dionna Anesthesiologist: Vik Anesthesia: Epidural, GET(General Endotracheal) Pre-op Diagnosis: AAA Post-op Diagnosis: same Indication: same Procedure: Aortobiiliac bipass Findings: Large AAA containing old hematoma Inf/Abcess present in the surg proc area at time of surgery?: No Depth: Organ Space EBL: 500-1000 Complications: None
[2017-11-20] MEDS ORDERED: HYDROmorphONE/DILAUDID 1 MG/ML INJ IVP PRN (12:30)
[2017-11-20] MEDS ORDERED: PROTAMINE SULFATE 50 MG/5 ML VIAL IVP ONE (12:54)
[2017-11-20] MEDS: D5W 1/2 NS 1,000 ML IV SCH ×2 (13:38→21:33)
[2017-11-20] MEDS ORDERED: ALBUMIN 5% 500 ML BOTTLE IV ONE (14:00)
[2017-11-20] MEDS ORDERED: IPRATROPIUM/ALBUTEROL 3 ML DEYVIAL ONE (14:51)
[2017-11-20] MEDS ORDERED: NOREPINEPHRINE BITARTRATE 16 MG in NS 250 ML IV ONE (15:00)
[2017-11-20 15:07] LABS: PLATELET COUNT 204 10^3/uL (150-400)
--- NOTE | 2017-11-20 17:09 | GCON ---
[f rep st] CONSULTATION PULMONARY CONSULTATION DATE OF CONSULTATION: 11/20/2017 REASON FOR CONSULTATION: COPD and congestive heart failure in a patient status post abdominal aortic aneurysm repair. HISTORY: The patient is a pleasant 76-year-old gentleman who is known to our office secondary to his COPD. He was seen recently by Dr. Armas for surgical clearance. He does have underlying severe chron ic obstructive pulmonary disease. He is on oxygen and has been relatively noncompliant with inhaled t herapies in the past. He has smoked cigarettes for a long time and has quit. He also has a history of congestive heart failure. He has been seen by Cardiology preoperatively. His latest ejection fractio n is 40%. He has chronic atrial fibrillation and is chronically anticoagulated. He was recently found to have an enlarging abdominal aortic aneurysm. He was thus taken to surgery electively by Dr. Pemberton today. He had some difficulties with oxygenation toward the end of the case. He also had difficultie s with hypotension. He received Cell Saver, crystalloid, and colloid during the procedure. He was ret urned to the intensive care unit off the ventilator and sedated postoperatively but has done relative ly well. Oxygen has been somewhat up and down as has his blood pressure. Currently, on supplemental o xygen and after 500 of albumin, both blood pressure and oxygen saturations are within normal limits. PAST MEDICAL HISTORY: Remarkable for the issues as outlined above. This includes severe COPD, conges tive heart failure, coronary artery disease with previous stenting, peripheral vascular disease, syst emic hypertension, hyperlipidemia, and fluid retention. HOME MEDICATIONS: Torsemide, Zoloft, potassium, lisinopril, DuoNeb, carvedilol, Lipitor, aspirin, an d Eliquis (which has been held). DRUG ALLERGIES: No known drug allergies. SOCIAL HISTORY: The patient has a supportive family. Significant alcohol is denied. I believe he rec ently quit smoking. FAMILY HISTORY: Positive for heart disease. REVIEW OF SYSTEMS: Currently unobtainable postoperatively. Per the HPI and past medical history as o utlined above. PHYSICAL EXAMINATION: GENERAL: Reveals an elderly gentleman who is lethargic postoperatively. He bearden s arouse and nods head and starting to have verbal responses. VITAL SIGNS: Blood pressure currently 1 03/65, heart rate 67 with sinus rhythm on the monitor. Respiratory rate is approximately 20. On a sim ple mask at 15 L, saturations are approximately 95%. CVP is 4. HEENT: Remarkable for dry mucous membr anes and the oxy mask. HEENT: Otherwise unremarkable. NECK: There is no lymphadenopathy or thyromegal y. No obvious jugular venous distention. PULMONARY: The chest reveals decreased breath sounds and exc ursions bilaterally with some mild central congestion. There are no significant rales at the bases. H EART: Regular in rate and rhythm. Heart tones are distant. There is a systolic murmur. No obvious gal lop. ABDOMEN: Postoperative and quiet. : A Uriarte catheter is in place. EXTREMITIES: There is no sig nificant lower extremity edema. He moves all extremities. He is still lethargic postoperatively secondary to anesthesia. An epidural catheter is in place this is not currently being used. LABORATORY: Postoperative hematocrit was 35, down from 36. Followup hematocrit was 32.8. PT and PTT were normal. Arterial blood gas initially postoperatively showed a pH of 7.24, pCO2 of 52, and pO2 of 55 with 78% saturation. Since that time, he has woken up, and saturations have significantly improve d. Postop metabolic panel shows a sodium of 139, potassium 5.0, CO2 21, BUN 42 with a creatinine 1.1, glucose is 173, calcium 7.8. Liver function studies are normal. Albumin is 2.7. CHEST X-RAY: No focal or confluent infiltrates. Mild hypoventilatory changes are noted, primarily on the right. The cardiac silhouette appears normal. There is no evidence of congestive heart failure. Lines and tubes are in appropriate position. ASSESSMENT: 1. Status post abdominal aortic aneurysm repair. He is doing well postoperatively. He has been inter mittently hypoxic and hypotensive; however, these changes are resolving as we have gotten further aldo y from surgery. Central venous pressure remains somewhat low, and crystalloid and colloid will be adj usted. Hematocrit is stable. 2. Chronic obstructive pulmonary disease. He has severe underlying disease. Forced vital capacity is 2.4 L, 68% of predicted with an FEV1 of 1.2 L, 43% of predicted. He does have a small response to br onchodilator. His disease is associated with chronic hypoxemia. 3. History of congestive heart failure. In part this is secondary to coronary artery disease and in part secondary to diastolic dysfunction associated with pulmonary hypertension and his underlying vicky g disease. Ejection fraction most recently was 40%. He also has a history of atrial fibrillation and was on anticoagulation prior to surgery. He is in normal sinus rhythm at this time. 4. Acute blood loss anemia. Current hematocrit is 32. He has 2 units of packed red cells on hold if needed. 5. History of other medical problems as outlined above. 6. Metabolic: No significant issues currently identified. 7. Gastrointestinal prophylaxis: Famotidine will be added to his regimen until he is taking p.o. iza d and fluids. 8. Deep vein thrombosis prophylaxis: Sequential compression devices. Will start Lovenox in several d ays if Surgery is agreeable. PLAN AND RECOMMENDATIONS: The patient will be supported in the intensive care unit. Intravenous flui ds will be given. Colloid can be repeated. Hematocrit will be followed and blood given if needed. Bro nchodilator treatments will be initiated. IS will be encouraged as he wakes up. Chest x-ray will be f ollowed. Laboratory will be followed. Appropriate pain management will be maintained. The epidural ca theter could be used if needed; however, when we attempted this, he became significantly hypotensive and it was stopped. If needed, norepinephrine could be used for blood pressure after adequate fluids are given. Further plans and recommendations will be made based on his progress over the next 12-24 hours. /[id number]/MODL
--- NOTE | 2017-11-20 17:27 | SOAPPROG ---
SOAP Progress Note Assessment/Plan: Assessment: postop: wound ok/ pulses ok/ afebrile/ uo adequate hct 35 Plan:monitor in icu 11/20/17 17:25 Objective: Vital Signs Temp Pulse Resp BP Pulse Ox 35.9 C L 77 19 119/61 87 L 11/20/17 13:56 11/20/17 15:00 11/20/17 15:00 11/20/17 15:00 11/20/17 15:00 Laboratory Results 11/20/17 14:15 11/20/17 12:50 11/19/17 11/20/17 11/21/17 05:59 05:59 05:59 Output Total 225 Balance -225 PT 13.9 SEC (12.0-15.0) 11/20/17 07:20 INR 1.05 (0.83-1.16) 11/20/17 07:20 ICD10 Worksheet Patient Problems: Problems Problem Status Onset Abdominal aortic aneurysm Acute Acute respiratory failure Acute Bronchitis Acute Chronic obstructive pulmonary disease with acute exacerbation Acute Hematoma Acute Hypertension Acute Hypoxia Acute Atrial flutter Chronic CHF (congestive heart failure) Chronic Chronic Disease Mgmt/Transitional Care Chronic
[2017-11-20] MEDS ORDERED: ALBUMIN 5% 500 ML IV PRN (21:30)
[2017-11-20] MEDS ORDERED: NS 500 ML IV ONE (22:00)
--- NOTE | 2017-11-20 22:34 | SOAPPROG ---
SOAP Progress Note Assessment/Plan: Assessment/Plan: - 76yo M POD#0 s/p open AAA - called for chest tightness, increased O2 requirements - assessed patient: having intermittent chest tightness, worse than abd pain - ordered CXR, trop, ECG, labs - have asked Dr Avina, hospitalist, to evaluate the patient as well and assist with cardiac workup. 11/20/17 22:31 11/20/17 22:33 Subjective: chest pain and tightness Objective: Vital Signs Temp Pulse Resp BP Pulse Ox 35.9 C L 73 20 112/56 L 90 L 11/20/17 13:56 11/20/17 18:00 11/20/17 18:00 11/20/17 18:00 11/20/17 18:00 Laboratory Results 11/20/17 22:05 11/19/17 11/20/17 11/21/17 05:59 05:59 05:59 Intake Total 591 Output Total 875 Balance -284 PT 13.9 SEC (12.0-15.0) 11/20/17 07:20 INR 1.05 (0.83-1.16) 11/20/17 07:20 ICD10 Worksheet Patient Problems: Problems Problem Status Onset Abdominal aortic aneurysm Acute Acute respiratory failure Acute Bronchitis Acute Chronic obstructive pulmonary disease with acute exacerbation Acute Hematoma Acute Hypertension Acute Hypoxia Acute Atrial flutter Chronic CHF (congestive heart failure) Chronic Chronic Disease Mgmt/Transitional Care Chronic
[2017-11-20 23:19] LABS: PLATELET COUNT 166 10^3/uL (150-400)
--- NOTE | 2017-11-21 00:51 | GCON ---
[f rep st] CONSULTATION HOSPITALIST CONSULTATION REQUESTING PHYSICIAN: Shahab Mata MD REASON FOR CONSULTATION: Chest pain and medical management. SOURCE: Patient is able to provide majority of HPI. Case was discussed directly with Dr. Mata, and EMR was reviewed as well as patient's accompanying paper chart. CHIEF COMPLAINT: Chest pain. HISTORY OF PRESENT ILLNESS: This is a pleasant 76-year-old gentleman with multiple medical problems including coronary artery disease status post history of drug-eluting stent to the RCA, LAD in 2015; chronic diastolic and systolic heart failure; COPD with chronic hypoxic respiratory failure, oxygen dependent; left bundle branch block; history of tobacco abuse with recent cessation; paroxysmal atrial fibrillation, previously on Eliquis prior to surgery; as well as enlarging AAA. Patient is postop day #0 for open aortic aneurysm repair. His intraoperative status was complicated by hypotension with attempts to remove clamps; see Dr. Mata's documentation. The patient was successfully extubated, but he continued to have some issues with episodes of hypotension requiring pressor support. The patient did receive some Levophed, IV fluids with a stable H and H. He was also noted to have some increasing hypoxia requiring increasing oxygen supplementation. Hospitalist service was consulted when the patient began to develop some bilateral chest pain. The patient reports that it is lower chest, substernal, mostly sharp, but some pressure pain. The patient reports that his pain starts on the right side medially and radiates across to the left. The patient does have an epidural in place as well as a PEDIATRIC LPN, which he states he has not been utilizing regularly. The patient denies any worsening shortness of breath from his baseline. Denies any increasing cough. No fevers or reports of chills. The patient does endorse a pleuritic chest pain component, worse with inspiration, movement, and cough. The patient does have a large midline incision that extends up to the xiphoid process. REVIEW OF SYSTEMS: GENERAL: No fevers or chills. SKIN: No recent rashes or sores. HEENT: Patient is denying any increased congestion or sore throat. No dysphagia. He does have an NG tube in place. Eyes: No acute changes in vision or ocular pain. CARDIOVASCULAR: Chest pain as noted above. No palpitations. RESPIRATORY: Negative as noted in HPI. GI: No nausea or vomiting. Patient's pain well controlled with epidural. : Patient with a history of severe urinary retention. He has a Uriarte catheter in place. MUSCULOSKELETAL: Patient without any current complaints of joint pain or myalgias. NEURO: Patient denies any headache, numbness, tingling. PSYCH: The patient denies. The rest of review of systems negative except as noted above. ALLERGIES: No known drug allergies. HOME MEDICATIONS: As per patient's clinic records: Aldactone 25 mg p.o. daily , aspirin 81 mg p.o. daily, atorvastatin 80 mg p.o. daily at noon, Coreg 12.5 mg p.o. twice daily, docusate 100 mg p.o. daily, Eliquis 5 mg p.o. b.i.d., DuoNeb t.i.d. p.r.n., lisinopril 5 mg p.o. daily, potassium chloride 10 mEq p.o. daily with food, prednisone 20 mg p.o. taper completed. Proventil inhaler q.4 hours p.r.n., sertraline 50 mg p.o. daily at noon, torsemide 10 mg p.o. daily. Current active medications: Fentanyl PEDIATRIC LPN, Dilaudid p.r.n., albumin 500 mL x1, aspirin 325 mg p.o. daily, D5W half-normal saline at 125 mL/h, Zofran 4 mg IV q.4 hours p.r.n. PAST MEDICAL HISTORY: Significant for paroxysmal atrial fibrillation, CAD with history of drug-eluting stent in the RCA, LAD in 2014; chronic diastolic and systolic heart failure with a normalized EF on echocardiogram August 2017. Patient with negative Lexiscan pharm stress test 09/09/2017. History of AAA, status post graft and stenting and now, open repair. Hypertensive cardiomyopathy. COPD with chronic hypoxic respiratory failure with oxygen dependence. History of left bundle branch block. Pulmonary nodule. History of tobacco abuse with recent cessation, 60 pack-year history. History of urinary retention. PAST SURGICAL HISTORY: Cardiac cath, stent as noted above, AAA repair and current surgery as above. FAMILY HISTORY: CAD. SOCIAL HISTORY: The patient is , lives with his . He does not currently smoke, drink, or do drugs. He does have a 60 pack-year history and just quit smoking earlier this year. PHYSICAL EXAM: CURRENT VITAL SIGNS: Temperature 98.5, heart rate 85, blood pressure 97/50 with a map 67, respiratory rate 16, O2 sats 100% on 10 L by OxyMask. GENERAL: No acute distress. Patient is a chronically ill-appearing gentleman who is resting in bed. HEENT: Head is normocephalic, atraumatic. Eyes: Extraocular muscles are intact. Pupils equal, round, decreased reactivity to light bilaterally, but symmetric. No scleral icterus or conjunctival injection. ENT: Mucous membranes appear slightly dry. No nasal discharge. Patient does have NG tube in left nostril. No oropharyngeal erythema or exudates. Dentition in place. NECK: Supple. Right IJ in place. Trachea midline. CARDIOVASCULAR: Regular rate and rhythm. Slightly distant heart sounds but no murmurs, rubs, or gallops appreciated. CHEST: The patient with some tenderness to palpation over the lower chest, just above the incisional site. Patient's pain is reproducible across his chest in the lower sternum from the right to the left. Patient reports that this is the same pain he has been experiencing, complaining of. It is exacerbated with deep inspiration attempts. RESPIRATORY: Diminished at the bases. Few crackles. No wheezes or rhonchi, no increased work of breathing. ABDOMEN: Slightly distended, soft. Midline incision is bandaged without any evidence of active bleeding or oozing. : Normal external male genitalia with a Uriarte catheter in place. No suprapubic tenderness to palpation. EXTREMITIES: No cyanosis, clubbing, or edema appreciated. 1+ pedal pulses bilaterally. Patient moves extremities. NEURO: No facial drooping. Cranial nerves are intact. Patient is awake, alert, and oriented x4. PSYCH: The patient's thought processes, content and questions are appropriate. He is calm, not agitated or confused. LABORATORY STUDIES: WBC is 9.34, H and H of 9.8 and 30.2, MCV of 95.6, platelet count is 166. PT is 13.9, INR 1.05, PTT is 37.1. Intraoperative ABG with a pH of 7.24, pCO2 52, PO2 55, O2 saturation 78%, bicarb 21, and base excess -6. Current BMP shows sodium 141, potassium 4.9, chloride is 107, CO2 of 24, anion gap of 10, BUN 38, creatinine is 1.2, GFR of 59. Patient's outpatient baseline creatinine is 1.0. Glucose 137, calcium 7.5. Troponin is negative. The patient's previous albumin from earlier in the day is 2.7. Chest x-ray: Image and report reviewed myself, compared to the previous chest x -rays; there is some cardiomegaly with pulmonary edema, diffuse interstitial prominence, bronchial thickening, unchanged. No evidence of acute consolidation or effusion. EKG, reviewed myself, shows sinus rhythm, rate of 70s, PVC present, nonspecific intraventricular conduction delay, Q-waves present in lead III. No acute ST elevations, T-wave flattening in aVL. QTc is 474. Compared to the EKG from , without any significant changes. ASSESSMENT AND PLAN: Pleasant 76-year-old gentleman, postop day #0 status post open aortic aneurysm repair with Dr. Mata and Dr. Pemberton. Hospitalist consultation for assistance with evaluation of chest pain and medical management. 1. Chest pain. Differential diagnosis is likely postoperative pain as patient' s abdominal incision does extend to just below the xiphoid process. The pain is reproducible with palpation over the incision site. The patient does have a longstanding history of cardiac disease, however. Initial troponin and electrocardiogram are unremarkable at this time, but will plan to trend, given patient's history. He did have negative stress test and cardiac evaluation in August, and so will monitor closely. I did encourage the patient to utilize his patient-controlled analgesia, which he states he has not been doing. He does have epidural in place but the level of pain control may be just below this region. I did reassess the patient shortly after administration of fentanyl and patient reports that his pain is now improved. Will plan to continue to monitor on telemetry. Additionally, the patient has had episodes of hypotension. He does have diastolic and systolic heart failure. He did have a notable amount of estimated blood loss, greater than 500 cc. Hemoglobin and hematocrit at this time are acceptable. He does not require any additional transfusion. Per Dr. Mata, he did receive approximately a liter of Cell Saver infused intraoperatively. Will continue to utilize Levophed to maintain mean arterial pressure greater than 65, and monitor hemoglobin and hematocrit closely for any transfusion needs that may arise. At this time, patient is resting comfortably. We will continue to monitor with repeat morning electrocardiogram and troponin. 2. Postoperative pain. Anesthesia is assisting. The patient does have patient -controlled analgesia, which I have encouraged him to utilize for any increasing pain. 3. Abdominal aortic aneurysm open repair, as per Primary Team. 4. Hypoxia. The patient does have a history of chronic hypoxic respiratory failure, chronic obstructive pulmonary disease. Does not appear to be in exacerbation at this time. We will continue to titrate oxygen down to maintain saturations greater than 88% to 92%, given his history of respiratory failure. The patient's pulse oxygenation is adequate at this time. If he appears to continue to have difficulties, we will plan to obtain arterial blood gases. Patient did have an intraoperative pCO2 of 52, but the patient is likely chronic carbon dioxide retaining with his history of chronic obstructive pulmonary disease. At this time, he does not require BiPAP. Patient's pain is likely prohibiting him from taking in adequate inspiration. Incentive spirometry will be encouraged as tolerated. Chest x-ray without any evidence of consolidations. May need to consider diuresis once patient's blood pressures have stabilized, versus just monitoring with use of pressor support to improve cardiac output. The patient's urine output has been adequate and so will monitor. 5. Acute blood loss anemia. Will be monitoring as noted above. 6. Chronic kidney disease, stage 3. Mildly increased creatinine at this point. Will need to monitor in setting of patient's episodes of hypotension and hypoxia. 7. Hypocalcemia, corrects for hypoalbuminemia. We will monitor closely. Replacement as needed. 8. Chronic medical issues: a. Paroxysmal atrial fibrillation, patient currently in sinus rhythm. He is off anticoagulation perioperatively, was advised to stop 4 days preoperative. He was on Eliquis twice daily. b. Coronary artery disease with history of stenting. As above, patient with normal stress testing in August and cardiology clearance. c. Acute on chronic diastolic and systolic congestive heart failure, decompensated postoperatively with acute blood loss, requiring pressor support as above. d. Hypertensive cardiomyopathy. e. History of urinary retention. The patient currently with Uriarte catheter. Will need to monitor postvoid residual once patient is stabilized and Uriarte has been removed. f. Hyperlipidemia. Statin once diet is advanced. g. Chronic obstructive pulmonary disease with chronic hypoxic respiratory failure. DuoNebs scheduled and albuterol as needed. At this point, the patient without any acute exacerbation. Does not require any steroid supplementation. Pulmonary Care is following as well. h. History of depressed mood. Continue sertraline when diet is advanced. 9. Fluid, electrolytes, nutrition. The patient does appear a little bit volume up on chest x-ray. We will plan to continue D5 half-normal saline at current rate. Patient is nil per os, has a nasogastric tube in place. Diet as per Primary Team. 10. Prophylaxis: Sequential compression devices. Anticoagulation as per Primary Team. 11. Code: Full. 12. Disposition: Patient seen in the intensive care unit, is critically ill postoperatively, requiring pressor support. 45 minutes critical care time spent on unit. /[id number]/MODL MTDD
[2017-11-21 05:27] LABS: PLATELET COUNT 180 10^3/uL (150-400)
[2017-11-21] MEDS ORDERED: ALBUTEROL 60 PUFFS/8 GM MDI IH PRN (07:35)
[2017-11-21] MEDS ORDERED: IPRATROPIUM/ALBUTEROL 3 ML DEYVIAL IH PRN (07:35)
[2017-11-21] MEDS: ASPIRIN 325 MG TAB PO SCH (08:35)
[2017-11-21] MEDS ORDERED: SPIRONOLACTONE 25 MG TAB PO SCH (09:00)
--- NOTE | 2017-11-21 09:32 | SOAPPROG ---
SOAP Progress Note Assessment/Plan: Assessment: 76 y/o male with a history of previous AAA repair, s/p aortobiiliac graft for failed previous stent. Dr. Mata was called last night because the pt was experiencing increased chest pain and was hypotensive. Troponins and ECG were negative. Pain likely incisional and above the level of the epidural. S: Talking, reports he's doing well. O: Alert Afebrile VSS H&H down some Chest: CTA bilaterally, no increase WOB Abdomen: soft, nontender, dressing cdi. Good femoral pulses +pedal pulses Plan: Continue security installer and epidural for postop pain control. Hold his regular BP and diuretic meds. Continue to hold Eliquis. Start 325mg asa today. 11/21/17 09:35 Objective: Vital Signs Temp Pulse Resp BP Pulse Ox 36.6 C 76 29 H 110/53 L 90 L 11/21/17 07:54 11/21/17 09:00 11/21/17 09:00 11/21/17 09:00 11/21/17 09:00 Laboratory Results 11/21/17 04:55 11/21/17 04:55 11/20/17 11/21/17 11/22/17 05:59 05:59 05:59 Intake Total 2511.4 Output Total 2500 Balance 11.4 PT 13.9 SEC (12.0-15.0) 11/20/17 07:20 INR 1.05 (0.83-1.16) 11/20/17 07:20 ICD10 Worksheet Patient Problems: Problems Problem Status Onset Abdominal aortic aneurysm Acute Acute respiratory failure Acute Bronchitis Acute Chronic obstructive pulmonary disease with acute exacerbation Acute Hematoma Acute Hypertension Acute Hypoxia Acute Atrial flutter Chronic CHF (congestive heart failure) Chronic Chronic Disease Mgmt/Transitional Care Chronic
--- NOTE | 2017-11-21 09:54 | ASMTCASEMG ---
Living Arrangements What is your living Answers: With Spouse arrangement? Who do you live with? Type Of Residence What kind of residence do Answers: House you live in? Discharge Plan Comments Coordination Status Comments Notes: Patient is a 76yo male who has a hx of severe COPD, congestive heart failure, coronary artery disease with previous stenting, peripheral vascular disease, systemic hypertension, hyperlipidemia and fluid retention. Patient was admitted for an enlarging abdominal aortic aneurysm which needs surgical intervention. No therapies have been ordered at this time. Patient has been living independently with his in [place]. D/C plan TBD. CM will follow. Date Signed: 11/21/2017 09:54 AM Electronically Signed By:Maddie Calderon LCSW
--- NOTE | 2017-11-21 10:31 | PDMN ---
Medical Necessity Medical necessity: IP surgery per [facility] (cpt 21541 ?) aortobiiliac bypass
[2017-11-21] MEDS ORDERED: ALBUMIN 5% 500 ML IV ONE (10:43)
[2017-11-21] MEDS: SERTRALINE HCL 50 MG TAB PO SCH (11:10)
[2017-11-21] MEDS: NS 1,000 ML IV SCH ×2 (11:10→21:30)
[2017-11-21] MEDS: ATORVASTATIN CALCIUM 40 MG TAB PO SCH (11:10)
[2017-11-21] MEDS ORDERED: POTASSIUM CL 10 MEQ TAB PO SCH (12:00)
[2017-11-21] MEDS ORDERED: NON-FORMULARY NEW DRUG (Atorvastatin Calcium [Lipitor 80 Mg] 80 MG) PO SCH (12:00)
[2017-11-21] MEDS ORDERED: TORSEMIDE 10 MG TAB PO SCH (12:00)
[2017-11-21] MEDS: FENT2MCG/ML&BUP0.1% 1 EA, fentaNYL 200 MCG, BUPIVACAINE 0.5% 20 ML in NS 100 ML IV SCH (12:57)
[2017-11-21] MEDS ORDERED: HYDROmorphONE/DILAUDID 1 MG/ML INJ IVP PRN (14:18)
[2017-11-21] MEDS: HYDROmorphONE/DILAUDID 2 MG/ML INJ IVP PRN ×2 (14:34→21:27)
--- NOTE | 2017-11-21 14:37 | HOSPPROG ---
Hospitalist Progress Note Assessment/Plan: Assessment: 76 yo M p/w abdominal aortic aneurysm s/p repair by Dr. Pemberton, c/b acute chest pain in setting of CAD, acute blood loss anemia, acute postoperative pulmonary insufficiency Plan: # AAA. POD#[address] Pemberton -pain well controlled below the epidural insertion site, cont PCEA -chest pain above the insertion site likely 2/2 referred pain, PRN dilaudid -ongoing abd surgical wound care -d/w Dr. Pemberton, likely advance mobility tomorrow AM, will place OT/PT orders and discuss w/ therapies during rounds in AM # CAD. Chronic, trops neg, cont ASA, chest pain does not appear to be anginal as he has ongoing pain but flat biomarkers # Acute blood loss anemia. Anticipated post-op w/ significant EBL, no e/o ongoing losses presently, Hgb stabilized at 9.3 -cont to monitor Hgb daily # Acute post-op pulmonary insufficiency. Evidenced by SpO2 73% on room air, 85% on 15LPM face mask w/ objective tachypnea (RR 27), PaO2 55, symptomatic shortness of breath, likely 2/2 combination of pain and reduced diaphragmatic movement, atelectasis and underlying lung disease -cont on 11LPM face mask -CXR d/w Dr. Dodge, no e/o infiltrate, collapse likely atelectatic # Acute atelectasis. Present on CXR (personally interpreted), cont IS # Shock. Likely hypovolemic, dosing albumin today, cont NS, cont levophed # Chronic hypoxic respiratory failure. 2/2 COPD, 3-4LPM nocturnal o2 and PRN daytime # Chronic diastolic and systolic CHF. EF 40%, no e/o exacerbation, cont IVF and monitor vol status closely # Atrial fibrillation. Paroxysmal, hold eliquis, on ASA post-op # Acute post-op ileus. Hypoactive bowel sounds, cont monitor for BMs Diet. NPO PPx. High risk, on SCDs, plan for lovenox tomorrow if Hgb stable Code. Full Dispo. ADD uncertain, remains critically ill. 40 minutes of critical care time spent w/ patient/ at bedside, coordinating care w/ Dr. Dodge, specifically addressing his pulm insufficiency and shock, which render him critically ill w/ high-risk of morbidity/mortality. Subjective: patient w/ ongoing anterior chest pain Objective: Vital Signs Temp Pulse Resp BP Pulse Ox 37.3 C 79 22 H 113/51 L 92 11/21/17 11:57 11/21/17 13:00 11/21/17 13:00 11/21/17 13:00 11/21/17 13:00 Laboratory Results 11/21/17 04:55 11/21/17 04:55 11/20/17 11/21/17 11/22/17 05:59 05:59 05:59 Intake Total 2511.4 Output Total 2500 Balance 11.4 PT 13.9 SEC (12.0-15.0) 11/20/17 07:20 INR 1.05 (0.83-1.16) 11/20/17 07:20 - Physical Exam Constitutional: no apparent distress, chronically ill appearing, uncomfortable, No not in pain (mild) Cardiovascular: systolic murmur (I/ at apex, distant heart sounds), No irregularly irregular, No tachycardia, No edema Respiratory: reduced air movement (R base on insp), inspiratory crackles (R base ), No expiratory wheeze, No bronchial breath sounds Gastrointestinal: tenderness (mild to mod depth), distension (moderate), No normoactive bowel sounds (hypoactive bowel sounds), No guarding Neurologic: AAOx3 Psychiatric: interacting appropriately, not anxious, not encephalopathic, thought process linear ICD10 Worksheet Patient Problems: Problems Problem Status Onset Abdominal aortic aneurysm Acute Acute respiratory failure Acute Bronchitis Acute Chronic obstructive pulmonary disease with acute exacerbation Acute Hematoma Acute Hypertension Acute Hypoxia Acute Atrial flutter Chronic CHF (congestive heart failure) Chronic Chronic Disease Mgmt/Transitional Care Chronic
--- NOTE | 2017-11-21 15:06 | PDINTPN ---
Purification Operator Helper Progress Note Assessment/Plan: Assessment: Status post AAA repair. Doing well. Hematocrit slightly down at 29. Id following. COPD/emphysema. Relatively severe. Stable, on increased oxygen postoperatively , nebulized treatments. Congestive heart failure. Preoperative ejection fraction approximately 40%. Cardiac status stable. Hemodynamics stable. Prophylaxis: Famotidine, SCDs Metabolic: no issues identified. Right middle lobe atelectasis/infiltrate. Probably secondary to some mucus plugging. Will follow. Plan: Continue care in the intensive care unit. Continue oxygen, broncho dilator treatments, pain management, and supportive care. Abdominal issues per surgery. Add nebulized budesonide. Began to mobilize tomorrow. Follow laboratory. Follow-up chest x-ray in a.m.. See orders 30 min of critical care time spent directly with the patient. Discussed with surgery, hospitalist, nursing, respiratory, and the ICU multi disciplinary team. Subjective: Overall doing well. Has some anterior lower chest pain. Abdomen okay. Not passing gas. Has some pulmonary congestion. Objective: Vital Signs Temp Pulse Resp BP Pulse Ox 37.3 C 80 20 100/49 L 94 11/21/17 11:57 11/21/17 14:58 11/21/17 14:58 11/21/17 14:58 11/21/17 14:58 Laboratory Results 11/21/17 04:55 11/21/17 04:55 11/20/17 11/21/17 11/22/17 05:59 05:59 05:59 Intake Total 2511.4 Output Total 2500 1000 Balance 11.4 -1000 PT 13.9 SEC (12.0-15.0) 11/20/17 07:20 INR 1.05 (0.83-1.16) 11/20/17 07:20 Laboratory Tests 11/21/17 11/21/17 04:55 05:00 pCO2 41 H pO2 60 L ABG pH 7.35 ABG O2 Saturation 90 L Total O2 Concentration 12.0 Calcium 7.7 L Albumin 2.8 L CXR: New right middle lobe atelectasis with a small infiltrate in that area. Lines and tubes in good position. Physical Exam - Physical Exam General Appearance: alert, no apparent distress EENT: PERRL/EOMI, other (OxyMask in place at 10 L) Neck: normal inspection Respiratory: lungs clear (Anteriorly), decreased breath sounds (At bases), rales (Few rales present at bases, nonspecific), rhonchi (Few rhonchi present bilaterally), wheezing (Minimal expiratory wheezes, probably secondary to secretions) Cardiac/Chest: regular rate, rhythm, other Abdomen: No normal bowel sounds (Few bowel sounds present. Postop changes) Male Genitalia: other (Uriarte catheter in place. Good urine output) Skin: warm/dry, pallor Extremities: pedal edema (Trace) Neuro/Psych: no motor/sensory deficits (Moves all extremities), No cognition abnormalities ICD10 Worksheet Patient Problems: Problems Problem Status Onset Atrial flutter Chronic CHF (congestive heart failure) Chronic Chronic Disease Mgmt/Transitional Care Chronic Acute respiratory failure Acute Hypoxia Acute Bronchitis Acute Hematoma Acute Chronic obstructive pulmonary disease with acute exacerbation Acute Abdominal aortic aneurysm Acute Hypertension Acute
--- NOTE | 2017-11-21 15:57 | PDPAINCON ---
Pain Management Consultation Assessment/Plan: Assessment: S/P POD 1 open triple 'a' repair. Pain control adequate. Plan: Continue PCEA fent+bup at 6cc/Hr. I did increase the bolus dose to 4cc but decreased the freq to q20 min. I am aware of ongoing blood pressure support with Norepi, however I think the larger bolus will aid in increasing the level and thus the coverage. I instructed patient not to use button unless he needs it. Anticipate continued decrease need for Norepinephrine as patient continues to mobilize fluid from the third spaces. Once taking PO, I'd encourage scheduled APAP and PRN oxycodone 5-10mg q 4 hrs. Ok with Dilaudid CRIMINALIST if needed. Please continue to hold Eliquis with epidural. Low dose sq BID heparin would be ok for prophylaxis, if desired. Will continue to follow. Anticipate d/ c epidural on 11/23. Call with questions or concerns. [phone] 11/21/17 16:00 11/21/17 16:01 Subjective: This is a pain management note on Tonio Likinson. This patient is POD 1 s/p open triple 'A' repair with large midline incision. Patient subjectively is feeling "ok." Pain is "tolerable." Currently controlled primarily with PCEA fent 2mcg/mL + bupivacaine 0.1% at 6 mL/Hr with patient bolus available every 15 minutes. Mr. Cali says he has "used the button" every 30-40 minutes. Blood pressure supported with low dose Norepinephrine. Has not yet ambulated. NG is in place to suction. Not yet taking orals. He is also getting occasional Dilaudid by IVP. Objective: Vital Signs Temp Pulse Resp BP Pulse Ox 37.3 C 80 20 100/49 L 94 11/21/17 11:57 11/21/17 14:58 11/21/17 14:58 11/21/17 14:58 11/21/17 14:58 Laboratory Results 11/21/17 04:55 11/21/17 04:55 11/20/17 11/21/17 11/22/17 05:59 05:59 05:59 Intake Total 2511.4 Output Total 2500 1000 Balance 11.4 -1000 PT 13.9 SEC (12.0-15.0) 11/20/17 07:20 INR 1.05 (0.83-1.16) 11/20/17 07:20 - Pending Discharge Pending Discharge Within 24 Hours: No Pending Discharge Within 48 Hours: No Physical Exam - Physical Exam General Appearance: no apparent distress Cardiac/Chest: normal peripheral pulses Neuro/Psych: other (T-6 level bilaterally ) ICD10 Worksheet Patient Problems: Problems Problem Status Onset Abdominal aortic aneurysm Acute Acute respiratory failure Acute Bronchitis Acute Chronic obstructive pulmonary disease with acute exacerbation Acute Hematoma Acute Hypertension Acute Hypoxia Acute Atrial flutter Chronic CHF (congestive heart failure) Chronic Chronic Disease Mgmt/Transitional Care Chronic
[2017-11-21] MEDS: IPRATROPIUM/ALBUTEROL 3 ML DEYVIAL IH SCH ×2 (17:04→20:34)
[2017-11-21] MEDS: BUDESONIDE 0.5 MG/2 ML AMPUL.NEB IH SCH (20:36)
[2017-11-21] MEDS: DOCUSATE SODIUM 100 MG CAP PO SCH (21:00)
[2017-11-22] MEDS: FENT2MCG/ML&BUP0.1% 1 EA, fentaNYL 200 MCG, BUPIVACAINE 0.5% 20 ML in NS 100 ML IV SCH ×3 (00:19→22:02)
[2017-11-22] MEDS: IPRATROPIUM/ALBUTEROL 3 ML DEYVIAL IH SCH ×4 (05:57→20:35)
--- NOTE | 2017-11-22 08:56 | SOAPPROG ---
SOAP Progress Note Assessment/Plan: Assessment: S/P POD 2 open triple 'a' repair. Pain control adequate. Plan: Continue PCEA at the same rate, fent+bup at 6cc/Hr. I did increase the bolus dose yesterday evening to 4cc Q 20 min and per nursing staff that was well tolerated. NE drip is off this AM. OK to get out of bed with the epidural. If OK for PO per surgery team, I'd encourage scheduled APAP and PRN oxycodone 5- 10mg q 4 hrs. 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 Please continue to hold Eliquis with epidural. Low dose sq BID heparin would be ok for prophylaxis, if desired. OK to d/c Uriarte if desired by surgical team. He would have about a 20% risk of urinary retention, necessitating reinsertion of Uriarte. Will continue to follow. Anticipate d/c epidural on Friday 11/24. Call with questions or concerns. [phone] 11/21/17 16:00 11/21/17 16:01 11/22/17 08:51 Subjective: Patient seen and examined in the ICU. Doing well. Denies pain. Slept better last night. Asking when he can eat and ambulate. Objective: Vital Signs Temp Pulse Resp BP Pulse Ox 36.9 C 77 20 113/52 L 93 11/22/17 06:00 11/22/17 07:00 11/22/17 07:00 11/22/17 07:00 11/22/17 07:00 Laboratory Results 11/22/17 06:00 11/22/17 06:00 11/21/17 11/22/17 11/23/17 05:59 05:59 05:59 Intake Total 2511.4 3482 Output Total 2500 3000 Balance 11.4 482 PT 13.9 SEC (12.0-15.0) 11/20/17 07:20 INR 1.05 (0.83-1.16) 11/20/17 07:20 Physical Exam - Physical Exam General Appearance: no apparent distress Cardiac/Chest: normal peripheral pulses Neuro/Psych: other (Bilateral T7 level) ICD10 Worksheet Patient Problems: Problems Problem Status Onset Abdominal aortic aneurysm Acute Acute respiratory failure Acute Bronchitis Acute Chronic obstructive pulmonary disease with acute exacerbation Acute Hematoma Acute Hypertension Acute Hypoxia Acute Atrial flutter Chronic CHF (congestive heart failure) Chronic Chronic Disease Mgmt/Transitional Care Chronic
[2017-11-22] MEDS ORDERED: ALBUMIN 5% 500 ML IV ONE (09:42)
[2017-11-22] MEDS: ALTEPLASE 2 MG VIAL IVP PRN ×3 (09:47→11:10)
[2017-11-22] MEDS: ASPIRIN 325 MG TAB PO SCH (11:04)
[2017-11-22] MEDS: SERTRALINE HCL 50 MG TAB PO SCH (11:04)
[2017-11-22] MEDS: BUDESONIDE 0.5 MG/2 ML AMPUL.NEB IH SCH ×2 (11:17→20:35)
--- NOTE | 2017-11-22 13:06 | SOAPPROG ---
SOAP Progress Note Assessment/Plan: Assessment/Plan: - 76yo M POD#2 s/p open AAA - VSS, HDS. Intermittently on pressors to maintain MAP >65 - CP has resolved, likely from large abd incision, workup uneventful - abdomen is soft, dressing taken down and ailyn cdi - ASA, hold Eliquis - CXR looks worse today, discussed the importance of pulm toilet, he dislikes the IS - ok for frye to come out if ok with CC. - NGT out, SLOW with clears, but does have bowel sounds. 11/20/17 22:31 11/20/17 22:33 11/22/17 13:04 Subjective: denies abdominal pain Objective: Vital Signs Temp Pulse Resp BP Pulse Ox 36.9 C 78 23 H 105/54 L 95 11/22/17 06:00 11/22/17 13:00 11/22/17 13:00 11/22/17 13:00 11/22/17 13:00 Laboratory Results 11/22/17 06:00 11/22/17 06:00 11/21/17 11/22/17 11/23/17 05:59 05:59 05:59 Intake Total 2511.4 3482 Output Total 2500 3000 Balance 11.4 482 PT 13.9 SEC (12.0-15.0) 11/20/17 07:20 INR 1.05 (0.83-1.16) 11/20/17 07:20 ICD10 Worksheet Patient Problems: Problems Problem Status Onset Abdominal aortic aneurysm Acute Acute respiratory failure Acute Bronchitis Acute Chronic obstructive pulmonary disease with acute exacerbation Acute Hematoma Acute Hypertension Acute Hypoxia Acute Atrial flutter Chronic CHF (congestive heart failure) Chronic Chronic Disease Mgmt/Transitional Care Chronic
--- NOTE | 2017-11-22 13:49 | PDINTPN ---
Credit Reference Clerk Progress Note Assessment/Plan: Assessment: Status post AAA repair. Doing well. Hematocrit slightly down at 28. Surgery following. COPD/emphysema. Relatively severe. Stable, on increased oxygen postoperatively , nebulized treatments. Chest x-ray somewhat worse today, with increased atelectasis and effusions Congestive heart failure. Preoperative ejection fraction approximately 40%. Cardiac status stable. Hemodynamics stable currently however blood pressure has been somewhat labile. Lower blood pressures respond easily to albumin. Prophylaxis: Famotidine, SCDs. Prophylactic Lovenox when OK with surgery. Metabolic: No issues identified. Right middle lobe atelectasis/infiltrate. Worse today. Getting him up into a chair and encouraging increased bronchopulmonary therapies may be of benefit. Will follow x-ray.. Plan: Continue care in the intensive care unit. Continue oxygen, broncho dilator treatments, pain management, and supportive care. Mobilize, IS, pickle. Abdominal issues per surgery. Increase mobilization. Follow laboratory. Follow-up chest x-ray in a.m. May need bronchoscopy to remove secretions in the next 24-48 hours if atelectasis does not improved. Consider Lasix diuresis if blood pressure tolerates. 35 min of critical care time spent directly with the patient. Discussed with patient's family, surgery, hospitalist, nursing, respiratory, and the ICU multi disciplinary team. Subjective: Feels better, in good spirits. Up in the chair today. Objective: Vital Signs Temp Pulse Resp BP Pulse Ox 36.9 C 78 23 H 105/54 L 95 11/22/17 06:00 11/22/17 13:00 11/22/17 13:00 11/22/17 13:00 11/22/17 13:00 Laboratory Results 11/22/17 06:00 11/22/17 06:00 11/21/17 11/22/17 11/23/17 05:59 05:59 05:59 Intake Total 2511.4 3482 Output Total 2500 3000 Balance 11.4 482 PT 13.9 SEC (12.0-15.0) 11/20/17 07:20 INR 1.05 (0.83-1.16) 11/20/17 07:20 Laboratory Tests 11/22/17 06:00 Calcium 8.1 L CXR: Increased bibasilar atelectasis/infiltrates with probable effusions. Physical Exam - Physical Exam General Appearance: alert, no apparent distress EENT: PERRL/EOMI, other (On 5 L OxyMask) Neck: normal inspection Respiratory: decreased breath sounds (Bilaterally), rales (Some basilar rales), rhonchi (Central secretions present), wheezing (Minimal) Cardiac/Chest: regular rate, rhythm, systolic murmur Abdomen: soft, No normal bowel sounds (Decreased, few present), No non-tender ( Little tenderness present) Male Genitalia: other (Uriarte catheter in place, adequate urine output) Skin: warm/dry, pallor Extremities: pedal edema (Trace +) Neuro/Psych: no motor/sensory deficits (Moves all extremities equally), No cognition abnormalities ICD10 Worksheet Patient Problems: Problems Problem Status Onset Atrial flutter Chronic CHF (congestive heart failure) Chronic Chronic Disease Mgmt/Transitional Care Chronic Acute respiratory failure Acute Hypoxia Acute Bronchitis Acute Hematoma Acute Chronic obstructive pulmonary disease with acute exacerbation Acute Abdominal aortic aneurysm Acute Hypertension Acute
--- NOTE | 2017-11-22 14:24 | HOSPPROG ---
Hospitalist Progress Note Assessment/Plan: Assessment: 76 yo M p/w abdominal aortic aneurysm s/p repair by Dr. Pemberton, c/b acute chest pain in setting of CAD, acute blood loss anemia, acute postoperative pulmonary insufficiency, and acute systolic and diastolic CHF exacerbation Plan: # AAA. POD#[address] Pemberton -pain well controlled below the epidural insertion site, cont PCEA -appreciate pain mgmt consultation, agree w/ including PO pain Rx when patient cleared for PO intake by gen surg -ongoing abd surgical wound care -d/w Dr. Mata, he recommends removing NGT given that majority of output is from ice-chips, monitor for abd symptoms closely prior to advancing PO intake # CAD. Chronic, trops neg, cont ASA, chest pain does not appear to be anginal, flat biomarkers # Acute blood loss anemia. Anticipated post-op w/ significant EBL, no e/o ongoing losses presently, Hgb stabilized at 9.1 -cont to monitor Hgb daily # Acute post-op pulmonary insufficiency. Evidenced by SpO2 73% on room air, 85% on 15LPM face mask w/ objective tachypnea (RR 27), PaO2 55, symptomatic shortness of breath, likely 2/2 combination of pain and reduced diaphragmatic movement, atelectasis and underlying lung disease -weaned to 5LPM face mask # Acute on Chronic diastolic and systolic CHF. Reviewed outside records including Echo 08/17/17 w/ EF 40% and mild-mod LVH w/ atrial dilation and no significant valve abnl, CXR w/ increased effusions (personally interpreted) which may be partially 2/2 poor diaphragmatic motion after abd surgery but may also be 2/2 IVF -stop IVF -finish 1 dose of albumin today -monitor BP thereafter, and, if BP tolerates, recommend restarting home dosage of lasix (can be IV if still not taking PO) # Acute atelectasis. Present on CXR, cont IS # Shock. Likely hypovolemic, dosing albumin today, off NS and off levophed # DONNA. 2/2 hypovolemia and shock, resolved w/ IVF and pressors # Chronic hypoxic respiratory failure. 2/2 COPD, 3-4LPM nocturnal o2 and PRN daytime # Atrial fibrillation. Paroxysmal, holding eliquis, on ASA post-op # Acute post-op ileus. Hypoactive bowel sounds, cont monitor for BMs, OK w/ Dr. Mata to remove NGT Diet. NPO, adv per gen surg PPx. High risk, on SCDs, plan for lovenox tomorrow if Hgb stable Code. Full Dispo. ADD uncertain, remains critically ill. High level of medical complexity, high risk of worsening morbidity and/or mortality 2/2 issues outlined above. Subjective: less pain, some ongoing shortness of breath Objective: Vital Signs Temp Pulse Resp BP Pulse Ox 36.9 C 78 23 H 105/54 L 95 11/22/17 06:00 11/22/17 13:00 11/22/17 13:00 11/22/17 13:00 11/22/17 13:00 Laboratory Results 11/22/17 06:00 11/22/17 06:00 11/21/17 11/22/17 11/23/17 05:59 05:59 05:59 Intake Total 2511.4 3482 Output Total 2500 3000 Balance 11.4 482 PT 13.9 SEC (12.0-15.0) 11/20/17 07:20 INR 1.05 (0.83-1.16) 11/20/17 07:20 - Physical Exam Constitutional: no apparent distress, not in pain, chronically ill appearing, uncomfortable Ears, Nose, Mouth, Throat: other (NGT in place) Cardiovascular: No systolic murmur, No irregularly irregular, No tachycardia, No edema Respiratory: reduced air movement (bilat bases), inspiratory crackles (bilat bases), No expiratory wheeze, No bronchial breath sounds, No respiratory distress Gastrointestinal: soft, non-tender abdomen, no palpable masses, distension ( moderate), No normoactive bowel sounds (hypoactive bowel sounds) Neurologic: AAOx3, No facial droop Psychiatric: interacting appropriately, not anxious, not encephalopathic, thought process linear ICD10 Worksheet Patient Problems: Problems Problem Status Onset Abdominal aortic aneurysm Acute Acute respiratory failure Acute Bronchitis Acute Chronic obstructive pulmonary disease with acute exacerbation Acute Hematoma Acute Hypertension Acute Hypoxia Acute Atrial flutter Chronic CHF (congestive heart failure) Chronic Chronic Disease Mgmt/Transitional Care Chronic
[2017-11-23] MEDS: NS 1,000 ML IV SCH (05:15)
[2017-11-23 05:34] LABS: PLATELET COUNT 137 10^3/uL (150-400)
[2017-11-23] MEDS: IPRATROPIUM/ALBUTEROL 3 ML DEYVIAL IH SCH ×4 (05:48→22:12)
[2017-11-23] MEDS: FENT2MCG/ML&BUP0.1% 1 EA, fentaNYL 200 MCG, BUPIVACAINE 0.5% 20 ML in NS 100 ML IV SCH (08:00)
[2017-11-23] MEDS ORDERED: FUROSEMIDE 40 MG/4 ML VIAL IVP ONE ×2 (08:39→15:21)
[2017-11-23] MEDS ORDERED: HYDROmorphONE/DILAUDID 2 MG TAB PO PRN (10:07)
[2017-11-23] MEDS: ASPIRIN 325 MG TAB PO SCH (10:43)
--- NOTE | 2017-11-23 11:08 | SOAPPROG ---
KATAP Progress Note Assessment/Plan: Assessment/Plan: - 76yo M POD#2 s/p open AAA - VSS, HDS. Has been off pressors x24hrs - on 5L NC, refuses nebs and IS. Is doing some deep breathing on his own. - abdomen is minimally distended, his incision is cdi. He has some bowel sounds and is passing flatus. Will advance to full liquids. Ok for oatmeal. He really wants pancakes, maybe tomorrow - Hb down to 7.6 today, 1 unit packed cells ordered. Will get lasix after. Cont FD ASA. OK for LMWH proph. Eliquis after epidural out - Starting PO pain meds, likely turn down epidural today, plan for removal tomorrow - a line out - voiding with frye removed - SDU ok with me 11/20/17 22:31 11/20/17 22:33 11/22/17 13:04 11/23/17 11:05 Subjective: hates his IS, hates nebs Objective: Vital Signs Temp Pulse Resp BP Pulse Ox 37.1 C 77 18 99/62 L 94 11/23/17 08:00 11/23/17 08:00 11/23/17 08:00 11/23/17 08:00 11/23/17 08:00 Laboratory Results 11/23/17 05:15 11/23/17 05:15 11/22/17 11/23/17 11/24/17 05:59 05:59 05:59 Intake Total 3482 2751 Output Total 3000 1275 Balance 482 1476 PT 13.9 SEC (12.0-15.0) 11/20/17 07:20 INR 1.05 (0.83-1.16) 11/20/17 07:20 ICD10 Worksheet Patient Problems: Problems Problem Status Onset Abdominal aortic aneurysm Acute Acute respiratory failure Acute Bronchitis Acute Chronic obstructive pulmonary disease with acute exacerbation Acute Hematoma Acute Hypertension Acute Hypoxia Acute Atrial flutter Chronic CHF (congestive heart failure) Chronic Chronic Disease Mgmt/Transitional Care Chronic
[2017-11-23] MEDS: BUDESONIDE 0.5 MG/2 ML AMPUL.NEB IH SCH ×2 (11:23→22:11)
[2017-11-23] MEDS: SERTRALINE HCL 50 MG TAB PO SCH (12:32)
[2017-11-23] MEDS: ENOXAPARIN 40 MG/0.4 ML SYR SC SCH (12:32)
--- NOTE | 2017-11-23 15:34 | HOSPPROG ---
Hospitalist Progress Note Assessment/Plan: Assessment: 76 yo M p/w abdominal aortic aneurysm s/p repair by Dr. Pemberton, c/b acute chest pain in setting of CAD, acute blood loss anemia, acute postoperative pulmonary insufficiency, and acute systolic and diastolic CHF exacerbation Plan: # AAA. POD#[address] Pemberton -pain well controlled below the epidural insertion site, cont PCEA w/ planned removal tomorrow AM (holding AM lovenox dose) -appreciate pain mgmt consultation, agree w/ including PO pain Rx when patient cleared for PO intake by anesthesia (oxy IR) -ongoing abd surgical wound care -d/w Dr. Mata, he recommends advancing diet today # CAD. Chronic, trops neg, cont ASA, chest pain does not appear to be anginal, flat biomarkers # Acute blood loss anemia. Anticipated post-op w/ significant EBL, no e/o ongoing losses presently, Hgb drop to 7.6 today -transfuse 1u PRBC, monitor Hgb level # Acute post-op pulmonary insufficiency. Evidenced by SpO2 73% on room air, 85% on 15LPM face mask w/ objective tachypnea (RR 27), PaO2 55, symptomatic shortness of breath, likely 2/2 combination of pain and reduced diaphragmatic movement, atelectasis and underlying lung disease -weaned to 5LPM face mask # Acute on Chronic diastolic and systolic CHF. Reviewed outside records including Echo 08/17/17 w/ EF 40% and mild-mod LVH w/ atrial dilation and no significant valve abnl, CXR w/ increased effusions R>L tdoay (personally interpreted) which may be partially 2/2 poor diaphragmatic motion after abd surgery but may also be 2/2 IVF -off IVF -dose lasix 40mg IV s/p transfusion and again this afternoon -d/w Dr. Dodge, plan to restart PO home diuretics in AM # Acute atelectasis. Present on CXR, cont IS # Shock. Likely hypovolemic, dosing albumin today, off NS and off levophed # DONNA. 2/2 hypovolemia and shock, resolved w/ IVF and pressors # Chronic hypoxic respiratory failure. 2/2 COPD, 3-4LPM nocturnal o2 and PRN daytime # Atrial fibrillation. Paroxysmal, holding eliquis, on ASA post-op # Acute post-op ileus. Advancing diet today Diet. Adv per gen surg PPx. High risk, lovenox 40 Code. Full Dispo. ADD uncertain, likely SNF High level of medical complexity, high risk of worsening morbidity and/or mortality 2/2 issues outlined above. Subjective: patient very hungry Objective: Vital Signs Temp Pulse Resp BP Pulse Ox 37.1 C 83 24 H 110/40 L 94 11/23/17 08:00 11/23/17 12:00 11/23/17 12:00 11/23/17 12:00 11/23/17 12:00 Laboratory Results 11/23/17 05:15 11/23/17 05:15 11/22/17 11/23/17 11/24/17 05:59 05:59 05:59 Intake Total 3482 2751 Output Total 3000 1275 1375 Balance 482 1476 -1375 PT 13.9 SEC (12.0-15.0) 11/20/17 07:20 INR 1.05 (0.83-1.16) 11/20/17 07:20 - Physical Exam Constitutional: no apparent distress, not in pain, chronically ill appearing, No uncomfortable Cardiovascular: systolic murmur (II/ at sternum), edema (trace bilat LE), No irregularly irregular, No tachycardia Respiratory: reduced air movement (bilat bases), inspiratory crackles, No expiratory wheeze, No bronchial breath sounds, No respiratory distress Gastrointestinal: normoactive bowel sounds, distension (mild), No tenderness, No guarding Neurologic: AAOx3, No facial droop Psychiatric: interacting appropriately, not anxious, not encephalopathic, thought process linear ICD10 Worksheet Patient Problems: Problems Problem Status Onset Abdominal aortic aneurysm Acute Acute respiratory failure Acute Bronchitis Acute Chronic obstructive pulmonary disease with acute exacerbation Acute Hematoma Acute Hypertension Acute Hypoxia Acute Atrial flutter Chronic CHF (congestive heart failure) Chronic Chronic Disease Mgmt/Transitional Care Chronic
--- NOTE | 2017-11-23 17:53 | PDINTPN ---
Cable Swager Progress Note Assessment/Plan: Assessment: Status post AAA repair. Doing well. Hematocrit down at 24 - 1 unit PRBCs ordered. Surgery following. COPD/emphysema. Relatively severe. Stable, on increased oxygen postoperatively , nebulized treatments. Chest x-ray improved today, but still with some basilar atelectasis and effusions Congestive heart failure. Preoperative ejection fraction approximately 40%. Cardiac status stable. Hemodynamics stable currently however blood pressure has been somewhat labile. Lower blood pressures respond easily to albumin. Prophylaxis: Famotidine, SCDs. Prophylactic Lovenox when OK with surgery. Metabolic: No issues identified. Right middle lobe atelectasis/infiltrate. Resolving. Plan: Continue care in the intensive care unit. For blood today. Continue oxygen, broncho dilator treatments, pain management, and supportive care. Mobilize, IS, pickle. Abdominal issues per surgery. Increase mobilization. Follow laboratory. Follow-up chest x-ray intermittently. GentleLasix diuresis as blood pressure tolerates. Start outpatient oral medications once okay with surgery. 30 min of critical care time spent directly with the patient. Discussed with patient's family, surgery, hospitalist, nursing, respiratory, and the ICU multi disciplinary team. Subjective: Doing well. Up in chair. In good spirits. Denies significant pain. Objective: Vital Signs Temp Pulse Resp BP Pulse Ox 36.7 C 82 20 186/86 H 96 11/23/17 16:00 11/23/17 17:00 11/23/17 16:00 11/23/17 16:00 11/23/17 17:00 Laboratory Results 11/23/17 05:15 11/23/17 05:15 11/22/17 11/23/17 11/24/17 05:59 05:59 05:59 Intake Total 3482 2751 1186 Output Total 3000 1275 1825 Balance 482 1476 -639 PT 13.9 SEC (12.0-15.0) 11/20/17 07:20 INR 1.05 (0.83-1.16) 11/20/17 07:20 CXR: Improved. Better aeration of the left lower lobe. Basilar atelectasis persists, probable small effusions. Physical Exam - Physical Exam General Appearance: alert, no apparent distress EENT: other (Nasal cannula at 5 L) Neck: normal inspection (No obvious JVD) Respiratory: lungs clear (Anteriorly), decreased breath sounds (Bilaterally), rales (Some present at bases), prolonged expiration, No rhonchi (Minimal central congestion with coughing), No wheezing Cardiac/Chest: regular rate, rhythm, other (Distant heart tones, no obvious gallop) Abdomen: non-tender, soft, No normal bowel sounds (Decreased, present) Male Genitalia: other (No Uriarte cath) Skin: warm/dry, pallor Extremities: pedal edema (Trace) Neuro/Psych: no motor/sensory deficits, No cognition abnormalities ICD10 Worksheet Patient Problems: Problems Problem Status Onset Atrial flutter Chronic CHF (congestive heart failure) Chronic Chronic Disease Mgmt/Transitional Care Chronic Acute respiratory failure Acute Hypoxia Acute Bronchitis Acute Hematoma Acute Chronic obstructive pulmonary disease with acute exacerbation Acute Abdominal aortic aneurysm Acute Hypertension Acute
--- NOTE | 2017-11-23 20:56 | GOP ---
[f rep st] OPERATIVE REPORT DATE OF OPERATION: 11/20/2017 SURGEON: Jordan Pemberton MD ELEVATOR REPAIR MECHANIC: Dr. Mata. ANESTHESIOLOGIST: Dr. Chery. PREOPERATIVE DIAGNOSIS: Enlarging abdominal aortic aneurysm. POSTOPERATIVE DIAGNOSIS: Enlarging abdominal aortic aneurysm. PROCEDURE PERFORMED: Abdominal aortic aneurysm repair with aortobiiliac bypass. FINDINGS: Patient was found to have a very short neck below the renal arteries. Had an enlarging 7. 1 cm abdominal aneurysm. The previous stent repair was in place. The stent was relatively easily re moved. He had extensive atherosclerosis through his iliac arteries. We were able to plug in easily t o the external iliac artery on either side. We did not go all the way to the groin area because he bell s already had surgery in both groins. ESTIMATED BLOOD LOSS: Less than 800 cc. DESCRIPTION OF PROCEDURE: The patient was taken to the operating room and received satisfactory gene ral endotracheal anesthesia by Dr. Chery. He was placed in supine position and prepped and draped i n usual sterile fashion. He had an epidural placed and arterial line for monitoring. Midline abdomi nal incision was made and carried through the linea alba. The abdomen was exposed. The small bowel was rotated laterally. The retroperitoneum was opened exposing the abdominal aneurysm. Dissection e xtended up to the neck of the aneurysm and up underneath the left renal vein. The renal arteries wer e identified. The aorta was dissected free and encircled with a red Keene catheter just below the renal arteries. Dissection extended down the common iliac arteries which included stent graft. The se were easily exposed and then the external iliac arteries were dissected free and exposed and contr olled with vessel loops in the pelvis. After adequate exposure was achieved, the patient was systemi osmar heparinized. After adequate circulation time and the vessels were occluded, incision was made in the anterior aneurysmal wall and dissection extended up and down the aneurysm. Previous stent gra ft was laying fairly free in the aneurysmal cavity, and this was removed. There was some difficulty removing it from the left iliac artery, but the entire stent graft was removed. The common iliac art celena orifices were examined and looked feasible for use as an anastomotic area, but it was unclear wha t damage may have been done to the intima distally with the stents. It was elected to suture off the common iliac origins with a running 3-0 Prolene suture for later bypass to the external iliac arteri es. The proximal neck of the aneurysm was divided and exposed. A 20 x 10 Dacron graft was selected a nd a running 3-0 Prolene suture was used for the proximal anastomosis. All vessels were flushed. [place] ture line appeared to be quite hemostatic. It was then covered with a Dacron corset and appeared to be quite hemostatic. Anastomosis was then made to both external iliac arteries after passing the gra ft through the retroperitoneal tunnels. Distal anastomoses were made with a running 4-0 Prolene sutu re creating a 1.5 cm anastomosis bilaterally. Flow was slowly returned to the legs. The patient did have some difficulty tolerating return flow 1 leg at a time. This, eventually, was overcome and uyen w was reestablished to the lower extremities. Suture lines appeared to be hemostatic. There was no significant bleeding from the aneurysm wall itself. It appeared that the lumbar collaterals had been occluded previously as well as the inferior mesenteric artery. After adequate hemostasis was assure d, heparin was reversed with protamine, and the aneurysm wall was closed over the graft with a runnin g 0 Vicryl suture. The retroperitoneum was then closed with a running 0 Vicryl suture, completely co vering the graft. At the completion of the procedure, he had good palpable femoral pulses and good p edal pulses. Bowel contents were restored to their normal position, and the abdomen was closed with a running #1 PDS for the linea alba, reinforced periodically with interrupted #1 Vicryl sutures. The skin was closed with skin ailyn. He tolerated the procedure quite well. COMPLICATIONS: None. /[id number]/MODL
[2017-11-24] MEDS: FENT2MCG/ML&BUP0.1% 1 EA, fentaNYL 200 MCG, BUPIVACAINE 0.5% 20 ML in NS 100 ML IV SCH (01:00)
[2017-11-24] MEDS ORDERED: NS 500 ML IV ONE ×2 (01:56→03:30)
[2017-11-24] MEDS ORDERED: METOPROLOL TARTRATE 5 MG/5 ML INJ IVP ONE ×2 (01:56→03:30)
[2017-11-24] MEDS ORDERED: METOPROLOL TARTRATE 5 MG/5 ML INJ ONE (03:19)
[2017-11-24 05:08] LABS: PLATELET COUNT 176 10^3/uL (150-400)
[2017-11-24] MEDS: IPRATROPIUM/ALBUTEROL 3 ML DEYVIAL IH SCH ×4 (05:08→20:06)
[2017-11-24] MEDS ORDERED: PROTOCOL POTASSIUM 1 DOSE MISC PRN (05:43)
[2017-11-24] MEDS ORDERED: PROTOCOL MAGNESIUM 1 DOSE IV PRN (05:43)
[2017-11-24] MEDS ORDERED: POTASSIUM CL 10 MEQ TAB PO ONE (05:45)
[2017-11-24] MEDS: ENOXAPARIN 40 MG/0.4 ML SYR SC SCH (07:23)
[2017-11-24] MEDS: oxyCODONE IR 5 MG TAB PO PRN ×4 (07:36→17:58)
[2017-11-24] MEDS ORDERED: CARVEDILOL 6.25 MG TAB PO ONE (08:41)
--- NOTE | 2017-11-24 09:13 | SOAPPROG ---
SOAP Progress Note Assessment/Plan: Assessment: 76 y/o male with a history of previous AAA repair, s/p aortobiiliac graft for failed previous stent. Epidural turned off this am S: Talking, reports he's doing well. Pain well controlled. Getting up to bedside commode. O: Alert Afebrile VSS Chest: CTA bilaterally, no increase WOB Abdomen: soft, nontender, dressing removed, incision cdi. +pedal and femoral pulses bilaterally Plan: Downgrade to PCU status. Pull epidural catheter today. Plan to restart Eliquis 6 hours after pulling catheter. 11/24/17 09:15 Objective: Vital Signs Temp Pulse Resp BP Pulse Ox 36.8 C 81 20 121/74 H 93 11/24/17 00:00 11/24/17 06:00 11/24/17 06:00 11/24/17 06:00 11/24/17 06:00 Laboratory Results 11/24/17 04:55 11/24/17 04:55 11/23/17 11/24/17 11/25/17 05:59 05:59 05:59 Intake Total 2751 2586 Output Total 4746 5935 Balance 1476 -339 PT 13.9 SEC (12.0-15.0) 11/20/17 07:20 INR 1.05 (0.83-1.16) 11/20/17 07:20 ICD10 Worksheet Patient Problems: Problems Problem Status Onset Abdominal aortic aneurysm Acute Acute respiratory failure Acute Bronchitis Acute Chronic obstructive pulmonary disease with acute exacerbation Acute Hematoma Acute Hypertension Acute Hypoxia Acute Atrial flutter Chronic CHF (congestive heart failure) Chronic Chronic Disease Mgmt/Transitional Care Chronic
[2017-11-24] MEDS: TORSEMIDE 10 MG TAB PO SCH (09:17)
[2017-11-24] MEDS: ASPIRIN 325 MG TAB PO SCH (09:17)
[2017-11-24] MEDS: SPIRONOLACTONE 25 MG TAB PO SCH (09:18)
--- NOTE | 2017-11-24 09:39 | SOAPPROG ---
JUAN CARLOS Progress Note Assessment/Plan: Assessment: S/P POD 4 open triple 'a' repair. Pain control adequate. Plan: Epidural turned off this AM. Would like to see PO oxy start before removing catheter. Will wait to pull catheter until adequate PO pain control is achieved once epidural wears off. Eliquis ok 6-hours after epidural is pulled. Uriarte is out, voiding ok. Has started a diet. Will sign off once epidural out. 11/21/17 16:00 11/21/17 16:01 11/22/17 08:51 11/24/17 09:36 11/24/17 15:54 Epidural removed 1548 on 11/24/17. OK for Eliquis after 2200 on 11/24/17. Subjective: Patient seen and examined on the floor. Denies pain. Has been up and out of bed. Uriarte is out. Epidural working well, currently at 4cc/hr. Had not yet received PRN Oxycodone as of my visit this AM. Objective: Vital Signs Temp Pulse Resp BP Pulse Ox 36.8 C 77 20 137/62 H 93 11/24/17 00:00 11/24/17 09:17 11/24/17 06:00 11/24/17 09:17 11/24/17 06:00 Laboratory Results 11/24/17 04:55 11/24/17 04:55 11/23/17 11/24/17 11/25/17 05:59 05:59 05:59 Intake Total 2751 2586 Output Total 1275 2925 Balance 1476 -339 PT 13.9 SEC (12.0-15.0) 11/20/17 07:20 INR 1.05 (0.83-1.16) 11/20/17 07:20 Physical Exam - Physical Exam General Appearance: no apparent distress Cardiac/Chest: regular rate, rhythm Back: Normal inspection, Other (Epidural site, clean and dry. ) Neuro/Psych: alert ICD10 Worksheet Patient Problems: Problems Problem Status Onset Abdominal aortic aneurysm Acute Acute respiratory failure Acute Bronchitis Acute Chronic obstructive pulmonary disease with acute exacerbation Acute Hematoma Acute Hypertension Acute Hypoxia Acute Atrial flutter Chronic CHF (congestive heart failure) Chronic Chronic Disease Mgmt/Transitional Care Chronic
[2017-11-24] MEDS: BUDESONIDE 0.5 MG/2 ML AMPUL.NEB IH SCH ×2 (11:48→20:07)
[2017-11-24] MEDS ORDERED: ONDANSETRON DISINTEGRATING 4 MG TAB PO PRN (12:09)
[2017-11-24] MEDS ORDERED: ONDANSETRON 4 MG/2 ML VIAL IVP PRN (12:10)
[2017-11-24] MEDS: HYDROmorphONE/DILAUDID 2 MG/ML INJ IVP PRN ×3 (12:25→15:58)
[2017-11-24] MEDS: SERTRALINE HCL 50 MG TAB PO SCH (14:23)
--- NOTE | 2017-11-24 14:37 | ASMTCMCOM ---
CM Note CM Note Notes: 11/24/2017 Case Management Note Reviewed chart, pt transferred to today. PT is recommending home d/c. Pt is and was living independently prior to admission. Case Management d/c poc: Anticipating independent with follow up as directed. Case Management to follow. Date Signed: 11/24/2017 02:36 PM Electronically Signed By:Cait Pete RN
--- NOTE | 2017-11-24 17:08 | HOSPPROG ---
Hospitalist Progress Note Assessment/Plan: Assessment: 76 yo M p/w abdominal aortic aneurysm s/p repair by Dr. Pemberton, c/b acute chest pain in setting of CAD, acute blood loss anemia, acute postoperative pulmonary insufficiency, and acute systolic and diastolic CHF exacerbation Plan: # AAA. POD#[address] Pemberton -PCEA stopped today, recommend adjusting to PO dilaudid + IV dilaudid breakthrough # CAD. Chronic, trops neg, cont ASA, chest pain does not appear to be anginal, flat biomarkers # Acute blood loss anemia. Anticipated post-op w/ significant EBL, no e/o ongoing losses presently, Hgb stable at 9.8 -transfused 1u PRBC, monitor Hgb level # Acute post-op pulmonary insufficiency. Evidenced by SpO2 73% on room air, 85% on 15LPM face mask w/ objective tachypnea (RR 27), PaO2 55, symptomatic shortness of breath, likely 2/2 combination of pain and reduced diaphragmatic movement, atelectasis and underlying lung disease -weaned to 3LPM # Acute on Chronic diastolic and systolic CHF. Reviewed outside records including Echo 08/17/17 w/ EF 40% and mild-mod LVH w/ atrial dilation and no significant valve abnl, CXR w/ increased effusions R>L which may be partially 2/ 2 poor diaphragmatic motion after abd surgery but may also be 2/2 IVF -off IVF -s/p IV lasix -d/w Madeline Hall, gen surg provider, we agreed to restart home diuretics ( spironolactone 25 + torsemide 10) today and gauge effect # Acute atelectasis. Present on CXR, cont IS # Shock. Likely hypovolemic, dosing albumin today, off NS and off levophed # DONNA. 2/2 hypovolemia and shock, resolved w/ IVF and pressors # Chronic hypoxic respiratory failure. 2/2 COPD, 3-4LPM nocturnal o2 and PRN daytime # Atrial fibrillation. Paroxysmal, OK to restart eliquis at 10 p.m. -d/w patient, he reports that his coreg was recently reduced to 6.25mg bid, was on hold gloria-op and had RVR o/n w/ rates in the 140s, responded to IV metoprolol -restart coreg 6.25 this AM, gauge effect # Acute post-op ileus. Advanced diet Diet. Adv per gen surg PPx. High risk, eliquis start tonight Code. Full Dispo. ADD uncertain, likely SNF High level of medical complexity, high risk of worsening morbidity and/or mortality 2/2 issues outlined above. Subjective: reports pain was initially uncontrolled on oxy IR, improved w/ IV dilaudid Objective: Vital Signs Temp Pulse Resp BP Pulse Ox 36.9 C 68 16 167/91 H 94 11/24/17 13:56 11/24/17 15:07 11/24/17 15:07 11/24/17 13:56 11/24/17 15:07 Laboratory Results 11/24/17 04:55 11/24/17 04:55 11/23/17 11/24/17 11/25/17 05:59 05:59 05:59 Intake Total 2751 2586 Output Total 1275 2925 Balance 1476 -339 PT 13.9 SEC (12.0-15.0) 11/20/17 07:20 INR 1.05 (0.83-1.16) 11/20/17 07:20 - Physical Exam Constitutional: no apparent distress, not in pain, chronically ill appearing, uncomfortable Cardiovascular: irregularly irregular, No systolic murmur, No tachycardia, No edema Respiratory: inspiratory crackles, No reduced air movement, No expiratory wheeze , No bronchial breath sounds, No respiratory distress Gastrointestinal: normoactive bowel sounds, tenderness (mild on L), distension ( mild), No guarding Skin: other (minimal erythema around surg site, no dehiscence, no ecchymoses, minimal tenderness) Neurologic: AAOx3, No weakness (motor 5/5 bilat LE) Psychiatric: interacting appropriately, not anxious, not encephalopathic, thought process linear ICD10 Worksheet Patient Problems: Problems Problem Status Onset Abdominal aortic aneurysm Acute Acute respiratory failure Acute Bronchitis Acute Chronic obstructive pulmonary disease with acute exacerbation Acute Hematoma Acute Hypertension Acute Hypoxia Acute Atrial flutter Chronic CHF (congestive heart failure) Chronic Chronic Disease Mgmt/Transitional Care Chronic
[2017-11-24] MEDS: CARVEDILOL 6.25 MG TAB PO SCH (17:58)
[2017-11-24] MEDS: APIXABAN 5 MG TAB PO SCH (21:26)
[2017-11-25] MEDS: oxyCODONE IR 5 MG TAB PO PRN ×5 (01:40→22:02)
[2017-11-25] MEDS: IPRATROPIUM/ALBUTEROL 3 ML DEYVIAL IH SCH ×4 (06:11→20:39)
[2017-11-25 06:28] LABS: PLATELET COUNT 194 10^3/uL (150-400)
[2017-11-25] MEDS ORDERED: POTASSIUM CL 10 MEQ TAB PO ONE ×2 (07:54→20:06)
--- NOTE | 2017-11-25 07:58 | POSTANESTH ---
Post Anesthetic Evaluation Cardiovascular Status: Similar to Pre-Op Cond Respiratory Status: Similar to Pre-op Cond. Level of Consciousness/Mental Status: Alert and Oriented Pain Control: Adequate, Prn Tx Ordered Nausea/Vomiting Control: Adequate, Prn Tx Ordered Complications Possibly Related to Anesthesia: None Noted
[2017-11-25] MEDS: CARVEDILOL 6.25 MG TAB PO SCH ×2 (08:29→21:06)
[2017-11-25] MEDS: APIXABAN 5 MG TAB PO SCH ×2 (08:29→21:05)
[2017-11-25] MEDS: SPIRONOLACTONE 25 MG TAB PO SCH (08:30)
[2017-11-25] MEDS: ASPIRIN 325 MG TAB PO SCH (08:31)
[2017-11-25] MEDS: BUDESONIDE 0.5 MG/2 ML AMPUL.NEB IH SCH ×2 (08:37→20:39)
[2017-11-25] MEDS: TORSEMIDE 10 MG TAB PO SCH (09:22)
--- NOTE | 2017-11-25 10:01 | SOAPPROG ---
SOAP Progress Note Assessment/Plan: Assessment/plan: 76 Y M s/p open AAA repair. POD#5. Overall doing well after such a large surgery. Ileus resolved. +BMs. Diet advanced. Low appetite but eating. CAD. C/o CP the other day. Now resolved. Troponins and w/u negative. Pain. Epidural removed. PO and IV meds started. Urinary retention. Failed void trial after epidural removal. Uriarte catheter replaced last night. Afib. Back on eliquis since epidural removal. S: pain controlled. has walked. daughter visiting. O: gen: alert, nad chest: ctab abd: protuberant, inc cdi, no erythema, +BS ext: lightly palpable pedal pulses, feet warm 11/25/17 13:35 Objective: Vital Signs Temp Pulse Resp BP Pulse Ox 36.7 C 67 18 121/68 H 94 11/25/17 07:58 11/25/17 08:39 11/25/17 08:39 11/25/17 07:58 11/25/17 08:39 Laboratory Results 11/25/17 06:10 11/25/17 06:10 11/24/17 11/25/17 11/26/17 05:59 05:59 05:59 Intake Total 2586 1100 Output Total 2925 2460 Balance -339 -1360 PT 13.9 SEC (12.0-15.0) 11/20/17 07:20 INR 1.05 (0.83-1.16) 11/20/17 07:20 ICD10 Worksheet Patient Problems: Problems Problem Status Onset Abdominal aortic aneurysm Acute Acute respiratory failure Acute Bronchitis Acute Chronic obstructive pulmonary disease with acute exacerbation Acute Hematoma Acute Hypertension Acute Hypoxia Acute Atrial flutter Chronic CHF (congestive heart failure) Chronic Chronic Disease Mgmt/Transitional Care Chronic
[2017-11-25] MEDS: ATORVASTATIN CALCIUM 40 MG TAB PO SCH (12:00)
[2017-11-25] MEDS: SERTRALINE HCL 50 MG TAB PO SCH (12:00)
--- NOTE | 2017-11-25 16:56 | HOSPPROG ---
Hospitalist Progress Note Assessment/Plan: Assessment: 76 yo M p/w abdominal aortic aneurysm s/p repair by Dr. Pemberton c/b acute blood loss anemia, acute postoperative pulmonary insufficiency, acute urinary retention, and acute systolic and diastolic CHF exacerbation Plan: # AAA. POD#[address] Pemberton -off PCEA, transitioned to PO Rx, currently working to stabilize on PO regimen # CAD. Chronic, trops neg, cont ASA, chest pain did not appear to be anginal, flat biomarkers, resolved # Acute blood loss anemia. Anticipated post-op w/ significant EBL, no e/o ongoing losses presently, Hgb stable at 9.3 -transfused 1u PRBC, monitor Hgb level # Acute urinary retention. 2/2 epidural, had 1000ml on bladder scan 11/24 PM, frye replaced -d/w Madeline Hall, surg provider, agreed that trial void necessary prior to DC and likely in AM, at discretion of gen surg # Acute post-op pulmonary insufficiency. Evidenced by SpO2 73% on room air, 85% on 15LPM face mask w/ objective tachypnea (RR 27), PaO2 55, symptomatic shortness of breath, likely 2/2 combination of pain and reduced diaphragmatic movement, atelectasis and underlying lung disease -weaned to 3LPM # Acute on Chronic diastolic and systolic CHF. Reviewed outside records including Echo 08/17/17 w/ EF 40% and mild-mod LVH w/ atrial dilation and no significant valve abnl, CXR w/ increased effusions R>L which may be partially 2/ 2 poor diaphragmatic motion after abd surgery but may also be 2/2 IVF -off IVF -s/p IV lasix -restarted home diuretics (spironolactone 25 + torsemide 10) 11/24 w/ net neg 1.4L o/n # Acute atelectasis. Present on CXR, cont IS # Shock. Likely hypovolemic, s/p albumin, NS and off levophed # DONNA. 2/2 hypovolemia and shock, resolved w/ IVF and pressors # Chronic hypoxic respiratory failure. 2/2 COPD, 3-4LPM nocturnal o2 and PRN daytime # Atrial fibrillation. Paroxysmal, restarted eliquis -patient requests his coreg be dosed same time as eliquis, was recently reduced to 6.25mg bid # Acute post-op ileus. Advanced diet, moving bowels Diet. Regular PPx. High risk, eliquis restarted Code. Full Dispo. ADD uncertain, likely SNF High level of medical complexity, high risk of worsening morbidity and/or mortality 2/2 issues outlined above. Subjective: well controlled abd pain, patient anxious about discharge and does not want it to be, "too soon", frye replaced last night Objective: Vital Signs Temp Pulse Resp BP Pulse Ox 36.8 C 65 16 132/72 H 92 11/25/17 16:00 11/25/17 16:00 11/25/17 16:00 11/25/17 16:00 11/25/17 16:00 Laboratory Results 11/25/17 06:10 11/25/17 06:10 11/24/17 11/25/17 11/26/17 05:59 05:59 05:59 Intake Total 2586 1100 500 Output Total 2925 2460 750 Balance -339 -1360 -250 PT 13.9 SEC (12.0-15.0) 11/20/17 07:20 INR 1.05 (0.83-1.16) 11/20/17 07:20 - Physical Exam Constitutional: no apparent distress, not in pain, chronically ill appearing, No uncomfortable Cardiovascular: systolic murmur (II/ at sternum/apex), No irregularly irregular, No tachycardia, No edema Respiratory: reduced air movement (bilat bases), No expiratory wheeze, No inspiratory crackles, No bronchial breath sounds, No respiratory distress Gastrointestinal: normoactive bowel sounds, soft, non-tender abdomen, no palpable masses, distension (mild), No guarding Skin: other (no erythema/dehiscence/ecchymoses/tenderness around surg site) Neurologic: AAOx3 Psychiatric: interacting appropriately, not anxious, not encephalopathic, thought process linear ICD10 Worksheet Patient Problems: Problems Problem Status Onset Atrial flutter Chronic CHF (congestive heart failure) Chronic Chronic Disease Mgmt/Transitional Care Chronic Acute respiratory failure Acute Hypoxia Acute Bronchitis Acute Hematoma Acute Chronic obstructive pulmonary disease with acute exacerbation Acute Abdominal aortic aneurysm Acute Hypertension Acute
[2017-11-25] MEDS: DOCUSATE SODIUM 100 MG CAP PO SCH (21:05)
[2017-11-26] MEDS: oxyCODONE IR 5 MG TAB PO PRN ×4 (01:05→14:51)
[2017-11-26] MEDS: IPRATROPIUM/ALBUTEROL 3 ML DEYVIAL IH SCH ×4 (05:39→21:54)
--- NOTE | 2017-11-26 07:34 | CPEKG ---
Heart Rate: 75 RR Interval: 800 P-R Interval: 156 QRSD Interval: 114 QT Interval: 424 QTC Interval: 474 P Morgan: 69 QRS Morgan: 50 T Wave Morgan: 59 EKG Severity - ABNORMAL ECG - EKG Impression: SINUS RHYTHM Electronically Signed By: Stuart Bhat 26-Nov-2017 08:33:20
[2017-11-26] MEDS ORDERED: POTASSIUM CL 10 MEQ TAB PO ONE ×2 (07:43→21:00)
[2017-11-26] MEDS ORDERED: LACTULOSE 20 GM/30 ML UDCUP PO PRN (08:03)
[2017-11-26] MEDS ORDERED: BISACODYL 10 MG SUPP PR PRN (08:03)
[2017-11-26] MEDS ORDERED: MAGNESIUM HYDROXIDE 30 ML UDCUP PO PRN (08:03)
[2017-11-26] MEDS ORDERED: MAGNESIUM SULF 1 GM/DEXTROSE 100 ML IV ONE (08:05)
[2017-11-26] MEDS: SENNOSIDES/DOCUSATE SODIUM TAB PO SCH ×2 (08:33→20:42)
[2017-11-26] MEDS: ASPIRIN 325 MG TAB PO SCH (08:34)
[2017-11-26] MEDS: CARVEDILOL 6.25 MG TAB PO SCH (08:34)
[2017-11-26] MEDS: APIXABAN 5 MG TAB PO SCH ×2 (08:34→20:42)
[2017-11-26] MEDS: SPIRONOLACTONE 25 MG TAB PO SCH (08:34)
[2017-11-26] MEDS: TAMSULOSIN HCL 0.4 MG CAP PO SCH (08:34)
[2017-11-26] MEDS: TORSEMIDE 10 MG TAB PO SCH (09:23)
--- NOTE | 2017-11-26 10:18 | SOAPPROG ---
SOAP Progress Note Assessment/Plan: Assessment: 76 y/o male with a history of previous AAA repair, s/p aortobiiliac graft for failed previous stent 5/3 Epidural removed on Friday Urinary retention after epidural removed. Indwelling frye in place. Back on eliquis for a-fb S: C/o incisional pain. Has been getting out of bed and ambulating. O: Alert Afebrile VSS Mag low Chest: CTA bilaterally, no increase WOB Abdomen: soft, nontender, incision cdi +pedal and femoral pulses bilaterally Plan: Start flomax for urinary retention. D/c frye catheter. Remove R IJ catheter after mag protocol today. Dispo home likely today or tomorrow. 11/26/17 10:12 Objective: Vital Signs Temp Pulse Resp BP Pulse Ox 36.7 C 70 17 149/82 H 92 11/26/17 07:02 11/26/17 07:02 11/26/17 07:02 11/26/17 07:02 11/26/17 07:02 Laboratory Results 11/26/17 05:00 11/26/17 05:00 11/25/17 11/26/17 11/27/17 05:59 05:59 05:59 Intake Total 1100 1880 Output Total 2460 3630 250 Balance -1360 -1750 -250 PT 13.9 SEC (12.0-15.0) 11/20/17 07:20 INR 1.05 (0.83-1.16) 11/20/17 07:20 ICD10 Worksheet Patient Problems: Problems Problem Status Onset Abdominal aortic aneurysm Acute Acute respiratory failure Acute Bronchitis Acute Chronic obstructive pulmonary disease with acute exacerbation Acute Hematoma Acute Hypertension Acute Hypoxia Acute Atrial flutter Chronic CHF (congestive heart failure) Chronic Chronic Disease Mgmt/Transitional Care Chronic
[2017-11-26] MEDS: BUDESONIDE 0.5 MG/2 ML AMPUL.NEB IH SCH ×2 (10:25→21:54)
[2017-11-26] MEDS: SERTRALINE HCL 50 MG TAB PO SCH (12:47)
[2017-11-26] MEDS: ATORVASTATIN CALCIUM 40 MG TAB PO SCH (12:47)
--- NOTE | 2017-11-26 13:54 | HOSPPROG ---
Hospitalist Progress Note Assessment/Plan: Assessment: 76 yo M p/w abdominal aortic aneurysm s/p repair by Dr. Pemberton c/b acute blood loss anemia, acute postoperative pulmonary insufficiency, acute urinary retention, and acute systolic and diastolic CHF exacerbation Plan: # AAA. POD #[address] Pemberton -off PCEA, transitioned to PO Rx # CAD. Chronic, trops neg, cont ASA, BB, statin # Acute blood loss anemia. S/P 1 u prbc's, hgb stable # Acute urinary retention. 2/2 epidural, had 1000ml on bladder scan 5/7 PM, frye replaced -frye d/c'd, voiding trial today -agree with flomax # AHRF post-operatively. likely 2/2 combination of pain and reduced diaphragmatic movement, atelectasis and underlying lung disease -weaned from 15 LPM to 4LPM, up to 6 LPM today- will repeat CXR # Acute on Chronic diastolic and systolic CHF. Reviewed Echo 08/17/17 w/ EF 40% and mild-mod LVH w/ atrial dilation and no significant valve abnl, CXR w/ increased effusions R>L which may be partially 2/2 poor diaphragmatic motion after abd surgery but may also be 2/2 IVF. Appears euvolemic today, lying supine without orthopnea or LE edema -off IVF, s/p IV lasix -cont home diuretics (spironolactone 25 + torsemide 10), diuresing net negative -rpt CXR as above # Acute atelectasis. Cont IS # Shock. Likely hypovolemic, resolved s/p albumin, NS and off levophed # DONNA. 2/2 hypovolemia and shock, resolved w/ IVF and pressors # Chronic hypoxic respiratory failure. 2/2 COPD, 3-4LPM nocturnal o2 and PRN daytime, currently on baseline O2 # Atrial fibrillation. Paroxysmal -cont eliquis, BB # Acute post-op ileus. Advanced diet, moving bowels Diet. Regular PPx. High risk, eliquis restarted Code. Full Dispo. ADD uncertain, likely SNF, possible d/c tomorrow High level of medical complexity, high risk of worsening morbidity and/or mortality 2/2 issues outlined above. Subjective: Pt doing ok. He is supine in bed, denies CP or SOB. No peripheral edema. No fevers/chills. Denies cough. +urinary retention, frye out today, hasn't voided yet. Objective: Vital Signs Temp Pulse Resp BP Pulse Ox 36.9 C 67 12 144/79 H 94 11/26/17 11:09 11/26/17 11:09 11/26/17 11:09 11/26/17 11:09 11/26/17 11:09 Laboratory Results 11/26/17 05:00 11/26/17 05:00 11/25/17 11/26/17 11/27/17 05:59 05:59 05:59 Intake Total 1100 1880 Output Total 2460 3630 825 Balance -1360 -1750 -825 PT 13.9 SEC (12.0-15.0) 11/20/17 07:20 INR 1.05 (0.83-1.16) 11/20/17 07:20 - Physical Exam Constitutional: no apparent distress Eyes: PERRL Ears, Nose, Mouth, Throat: moist mucous membranes Cardiovascular: regular rate and rhythym Respiratory: no respiratory distress, reduced air movement Gastrointestinal: normoactive bowel sounds, soft, non-tender abdomen Skin: warm Musculoskeletal: full muscle strength Neurologic: AAOx3 Psychiatric: interacting appropriately ICD10 Worksheet Patient Problems: Problems Problem Status Onset Abdominal aortic aneurysm Acute Acute respiratory failure Acute Bronchitis Acute Chronic obstructive pulmonary disease with acute exacerbation Acute Hematoma Acute Hypertension Acute Hypoxia Acute Atrial flutter Chronic CHF (congestive heart failure) Chronic Chronic Disease Mgmt/Transitional Care Chronic
--- NOTE | 2017-11-26 15:58 | ASMTCMCOM ---
CM Note CM Note Notes: CM discussed case w/ LIAT Collins. CM met w/ pt and for dispo planning. would like to have ARIAN, RN. is requesting for [facility]. Referral made to [facility] and they are able to accept. Anticipate d/c in 2-3 days. CM confirmed pts address and phone number. Pts PCP is Dr. Teran. CM to follow. Plan: LIAT ARORA Date Signed: 11/26/2017 03:57 PM Electronically Signed By:ARTUR Bradshaw
[2017-11-26] MEDS ORDERED: CARVEDILOL 6.25 MG TAB PO ONE ×2 (17:28→21:00)
[2017-11-26] MEDS ORDERED: CARVEDILOL 6.25 MG TAB PO SCH (17:29)
--- NOTE | 2017-11-26 17:42 | CPEKG ---
Heart Rate: 126 RR Interval: 476 QRSD Interval: 106 QT Interval: 324 QTC Interval: 470 QRS Madison: 66 T Wave Madison: 52 EKG Severity - ABNORMAL ECG - EKG Impression: PACEMAKER SPIKES OR ARTIFACTS EKG Impression: ATRIAL FIBRILLATION, V-RATE 82-155 EKG Impression: VENTRICULAR PREMATURE COMPLEX EKG Impression: NONSPECIFIC REPOL ABNORMALITY, DIFFUSE LEADS Electronically Signed By: Stuart Bhat 27-Nov-2017 12:43:19
--- NOTE | 2017-11-26 19:51 | HOSPPROG ---
Hospitalist Progress Note Assessment/Plan: Called by RN for concerns of chest and abdominal pain. Patient evaluated, complaining of pain "everywhere" but mostly chest, abdomen and "kidneys". Per nurse this is a change from prior. Incision appears CDI, bowel sounds present but hypoactive. CXR, trop personally reviewed and cxr notable for persistent pleural effusions and increased atelectasis but nothing to explain pain, trop negative, ecg non ischemic. Abdominal film, cbc, lactate ordered. Nurse will alert Dr. Pemberton. Objective: Vital Signs Temp Pulse Resp BP Pulse Ox 36.6 C 141 H 16 105/91 H 94 11/26/17 14:50 11/26/17 18:22 11/26/17 16:28 11/26/17 18:22 11/26/17 16:28 Laboratory Results 11/26/17 05:00 11/25/17 11/26/17 11/27/17 05:59 05:59 05:59 Intake Total 1100 1880 250 Output Total 2460 3630 1625 Balance -1360 -1750 -1375 PT 13.9 SEC (12.0-15.0) 11/20/17 07:20 INR 1.05 (0.83-1.16) 11/20/17 07:20 ICD10 Worksheet Patient Problems: Problems Problem Status Onset Atrial flutter Chronic CHF (congestive heart failure) Chronic Chronic Disease Mgmt/Transitional Care Chronic Acute respiratory failure Acute Hypoxia Acute Bronchitis Acute Hematoma Acute Chronic obstructive pulmonary disease with acute exacerbation Acute Abdominal aortic aneurysm Acute Hypertension Acute
[2017-11-26 20:20] LABS: PLATELET COUNT 208 10^3/uL (150-400)
[2017-11-26] MEDS: DOCUSATE SODIUM 100 MG CAP PO SCH (20:42)
--- NOTE | 2017-11-26 23:09 | SOAPPROG ---
SOAP Progress Note Assessment/Plan: Assessment: postop: wound ok/ pulses ok/ afebrile/ uo adequate hct 35 Plan:monitor in icu 11/20/17 17:25 11/26/17 23:06 BRIEF EPISODE OF ABD PAIN TONITE BUT QUICKLY RESOLVED WITH WALKING LABS OK, HCT 31 CXR EFFUSIONS KUB ILEUS HEENT NONICTERIC CHEST CLEAR AND SYMMETRIC COR RR ABD SOFT, +BS, WOUND OK, SLIGHTLY DISTENDED, NONTENDER PLAN OBS, NO SIGN OF BLEEDING OR COLON ISCHEMIA/ WILL FOLLOW Objective: Vital Signs Temp Pulse Resp BP Pulse Ox 36.6 C 122 H 12 107/73 93 11/26/17 20:00 11/26/17 20:00 11/26/17 21:54 11/26/17 20:00 11/26/17 21:54 Laboratory Results 11/26/17 20:00 11/26/17 18:06 11/25/17 11/26/17 11/27/17 05:59 05:59 05:59 Intake Total 1100 1880 250 Output Total 2460 3630 1625 Balance -1360 -1750 -1375 PT 13.9 SEC (12.0-15.0) 11/20/17 07:20 INR 1.05 (0.83-1.16) 11/20/17 07:20 ICD10 Worksheet Patient Problems: Problems Problem Status Onset Abdominal aortic aneurysm Acute Acute respiratory failure Acute Bronchitis Acute Chronic obstructive pulmonary disease with acute exacerbation Acute Hematoma Acute Hypertension Acute Hypoxia Acute Atrial flutter Chronic CHF (congestive heart failure) Chronic Chronic Disease Mgmt/Transitional Care Chronic
[2017-11-27] MEDS ORDERED: POTASSIUM CL 10 MEQ TAB PO ONE ×2 (00:15→20:11)
[2017-11-27] MEDS: oxyCODONE IR 5 MG TAB PO PRN ×4 (00:23→21:24)
[2017-11-27] MEDS: IPRATROPIUM/ALBUTEROL 3 ML DEYVIAL IH SCH ×4 (05:45→20:50)
[2017-11-27] MEDS: APIXABAN 5 MG TAB PO SCH ×2 (08:27→20:05)
[2017-11-27] MEDS: CARVEDILOL 6.25 MG TAB PO SCH ×2 (08:27→20:05)
[2017-11-27] MEDS: TAMSULOSIN HCL 0.4 MG CAP PO SCH (08:28)
[2017-11-27] MEDS: SPIRONOLACTONE 25 MG TAB PO SCH (08:28)
[2017-11-27] MEDS: SENNOSIDES/DOCUSATE SODIUM TAB PO SCH ×2 (08:28→20:04)
[2017-11-27] MEDS: ASPIRIN 325 MG TAB PO SCH (08:28)
[2017-11-27] MEDS: BUDESONIDE 0.5 MG/2 ML AMPUL.NEB IH SCH ×2 (10:56→20:50)
[2017-11-27] MEDS: TORSEMIDE 10 MG TAB PO SCH (11:09)
[2017-11-27] MEDS: ATORVASTATIN CALCIUM 40 MG TAB PO SCH (11:14)
[2017-11-27] MEDS: SERTRALINE HCL 50 MG TAB PO SCH (11:14)
--- NOTE | 2017-11-27 15:55 | SOAPPROG ---
SOAP Progress Note Assessment/Plan: Assessment: postop: wound ok/ pulses ok/ afebrile/ uo adequate hct 35 Plan:monitor in icu 11/20/17 17:25 11/26/17 23:06 BRIEF EPISODE OF ABD PAIN TONITE BUT QUICKLY RESOLVED WITH WALKING LABS OK, HCT 31 CXR EFFUSIONS KUB ILEUS HEENT NONICTERIC CHEST CLEAR AND SYMMETRIC COR RR ABD SOFT, +BS, WOUND OK, SLIGHTLY DISTENDED, NONTENDER PLAN OBS, NO SIGN OF BLEEDING OR COLON ISCHEMIA/ WILL FOLLOW 11/27/17 15:52 DOING BETTER TODAY/AFEBRILE/GOOD PULSES/WOUND OKAY/ABDOMEN SOFT WITH BOWEL SOUNDS AND POSITIVE BOWEL MOVEMENT/ LAB STABLE MAJOR ISSUE IS URINARY RETENTION REQUIRING CATHETERIZATION AND FLOMAX HOPEFULLY HOME TOMORROW WITH OR WITHOUT PARKINSON CATHETER Objective: Vital Signs Temp Pulse Resp BP Pulse Ox 36.7 C 64 18 111/60 87 L 11/27/17 11:41 11/27/17 11:41 11/27/17 11:41 11/27/17 11:41 11/27/17 12:03 Laboratory Results 11/26/17 20:00 11/27/17 03:25 11/26/17 11/27/17 11/28/17 05:59 05:59 05:59 Intake Total 1880 550 Output Total 3630 2250 Balance -1750 -1700 PT 13.9 SEC (12.0-15.0) 11/20/17 07:20 INR 1.05 (0.83-1.16) 11/20/17 07:20 ICD10 Worksheet Patient Problems: Problems Problem Status Onset Abdominal aortic aneurysm Acute Acute respiratory failure Acute Bronchitis Acute Chronic obstructive pulmonary disease with acute exacerbation Acute Hematoma Acute Hypertension Acute Hypoxia Acute Atrial flutter Chronic CHF (congestive heart failure) Chronic Chronic Disease Mgmt/Transitional Care Chronic
--- NOTE | 2017-11-27 16:26 | HOSPPROG ---
Hospitalist Progress Note Assessment/Plan: Assessment: 76 yo M p/w abdominal aortic aneurysm s/p repair by Dr. Pemberton c/b acute blood loss anemia, acute postoperative pulmonary insufficiency, acute urinary retention, and acute systolic and diastolic CHF exacerbation Plan: # AAA. POD #[address] Pemberton -post-op management per surg # Post-op ileus - mild, seems resolved today # Acute urinary retention. Possibly 2/2 epidural, frye replaced due to ongoing retention requiring frequent straight caths -cont frye, likely d/c with frye and outpt f/u with urology -cont flomax # CAD. Chronic, trops neg, cont ASA, BB, statin # Acute blood loss anemia. S/P 1 u prbc's, hgb stable # Acute / chronic hypoxemic respiratory failure. On 3-4 LPM O2 nocturnal and prn daytime at baseline. 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 Reviewed Echo 08/17/17 w/ EF 40% and mild-mod LVH w/ atrial dilation and no significant valve abnl, CXR w/ increased effusions R>L which may be partially 2/2 poor diaphragmatic motion after abd surgery but may also be 2/2 IVF. Appears euvolemic today, lying supine without orthopnea or LE edema -off IVF, s/p IV lasix -cont home diuretics (spironolactone 25 + torsemide 10), diuresing net negative # Acute atelectasis. Cont IS # Shock. Likely hypovolemic, resolved s/p albumin, NS and off levophed # DONNA. 2/2 hypovolemia and shock, resolved w/ IVF and pressors # Atrial fibrillation. Paroxysmal -cont eliquis, BB Diet. Regular PPx. High risk, eliquis restarted Code. Full Dispo. possible d/c tomorrow. pt refusing home health services, as recommended by therapy team High level of medical complexity, high risk of worsening morbidity and/or mortality 2/2 issues outlined above. Subjective: Pt doing ok. Lying supine, flat in bed, denies CP or SOB. Frye back in due to ongoing retention. No fevers/chills. No abdominal pain. No BM today. Objective: Vital Signs Temp Pulse Resp BP Pulse Ox 36.7 C 64 18 111/60 87 L 11/27/17 11:41 11/27/17 11:41 11/27/17 11:41 11/27/17 11:41 11/27/17 12:03 Laboratory Results 11/26/17 20:00 11/27/17 03:25 11/26/17 11/27/17 11/28/17 05:59 05:59 05:59 Intake Total 1880 550 Output Total 3630 2250 Balance -1750 -1700 PT 13.9 SEC (12.0-15.0) 11/20/17 07:20 INR 1.05 (0.83-1.16) 11/20/17 07:20 - Physical Exam Constitutional: no apparent distress Eyes: PERRL Ears, Nose, Mouth, Throat: moist mucous membranes Cardiovascular: regular rate and rhythym Respiratory: no respiratory distress, reduced air movement Gastrointestinal: normoactive bowel sounds, soft, non-tender abdomen Skin: warm Musculoskeletal: full muscle strength Neurologic: AAOx3 Psychiatric: interacting appropriately ICD10 Worksheet Patient Problems: Problems Problem Status Onset Abdominal aortic aneurysm Acute Acute respiratory failure Acute Bronchitis Acute Chronic obstructive pulmonary disease with acute exacerbation Acute Hematoma Acute Hypertension Acute Hypoxia Acute Atrial flutter Chronic CHF (congestive heart failure) Chronic Chronic Disease Mgmt/Transitional Care Chronic
[2017-11-27] MEDS: POLYETHYLENE GLYCOL 3350 17 GM PKT PO PRN (18:05)
[2017-11-27] MEDS: DOCUSATE SODIUM 100 MG CAP PO SCH (20:04)
[2017-11-28] MEDS: oxyCODONE IR 5 MG TAB PO PRN ×3 (02:28→12:20)
[2017-11-28] MEDS: IPRATROPIUM/ALBUTEROL 3 ML DEYVIAL IH SCH ×2 (05:46→11:28)
[2017-11-28] MEDS: BUDESONIDE 0.5 MG/2 ML AMPUL.NEB IH SCH (09:31)
[2017-11-28] MEDS: ASPIRIN 325 MG TAB PO SCH (09:39)
[2017-11-28] MEDS: SENNOSIDES/DOCUSATE SODIUM TAB PO SCH (09:39)
[2017-11-28] MEDS: TAMSULOSIN HCL 0.4 MG CAP PO SCH (09:39)
[2017-11-28] MEDS: CARVEDILOL 6.25 MG TAB PO SCH (09:39)
[2017-11-28] MEDS: SPIRONOLACTONE 25 MG TAB PO SCH (09:39)
[2017-11-28] MEDS: TORSEMIDE 10 MG TAB PO SCH (09:40)
[2017-11-28] MEDS: APIXABAN 5 MG TAB PO SCH (09:40)
--- NOTE | 2017-11-28 11:25 | HOSPPROG ---
Hospitalist Progress Note Assessment/Plan: Assessment: 76 yo M p/w abdominal aortic aneurysm s/p repair by Dr. Pemberton c/b acute blood loss anemia, acute postoperative pulmonary insufficiency, acute urinary retention, and acute systolic and diastolic CHF exacerbation Plan: # AAA. POD #[address] Pemberton -post-op management per surg # Acute urinary retention. Frye replaced due to ongoing retention requiring frequent straight caths -cont frye at d/c and will need outpt f/u with urology -cont flomax # CAD. Chronic, trops neg, cont ASA, BB, statin # Acute blood loss anemia. S/P 1 u prbc's, hgb stable # Acute / chronic hypoxemic respiratory failure. On 3-4 LPM O2 nocturnal and prn daytime at baseline. 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 Reviewed Echo 08/17/17 w/ EF 40% and mild-mod LVH w/ atrial dilation and no significant valve abnl, CXR w/ increased effusions R>L which may be partially 2/2 poor diaphragmatic motion after abd surgery but may also be 2/2 IVF. Appears euvolemic today, lying supine without orthopnea or LE edema -off IVF, s/p IV lasix -cont home diuretics (spironolactone 25 + torsemide 10) # Acute atelectasis. Cont IS # Shock. Likely hypovolemic, resolved s/p albumin, NS and off levophed # DONNA. 2/2 hypovolemia and shock, resolved w/ IVF and pressors # Atrial fibrillation. Paroxysmal -cont eliquis, BB Diet. Regular PPx. High risk, eliquis restarted Code. Full Dispo. Likely ok to d/c today, per surgery service. Pt refusing home health services, as recommended by therapy team Subjective: Pt feels fine. Again, lying completely flat, no orthopnea. No edema. No CP. Wants to go home. Objective: Vital Signs Temp Pulse Resp BP Pulse Ox 36.6 C 66 18 102/85 H 93 11/28/17 08:02 11/28/17 09:39 11/28/17 08:02 11/28/17 09:39 11/28/17 08:02 Laboratory Results 11/28/17 09:35 11/28/17 03:30 11/27/17 11/28/17 11/29/17 05:59 05:59 05:59 Intake Total 550 300 Output Total 2250 1125 Balance -1700 -825 PT 13.9 SEC (12.0-15.0) 11/20/17 07:20 INR 1.05 (0.83-1.16) 11/20/17 07:20 - Physical Exam Constitutional: no apparent distress Eyes: PERRL Ears, Nose, Mouth, Throat: moist mucous membranes Cardiovascular: regular rate and rhythym Respiratory: no respiratory distress, reduced air movement Gastrointestinal: normoactive bowel sounds, soft, non-tender abdomen Skin: warm Musculoskeletal: full muscle strength Neurologic: AAOx3 Psychiatric: interacting appropriately ICD10 Worksheet Patient Problems: Problems Problem Status Onset Abdominal aortic aneurysm Acute Acute respiratory failure Acute Bronchitis Acute Chronic obstructive pulmonary disease with acute exacerbation Acute Hematoma Acute Hypertension Acute Hypoxia Acute Atrial flutter Chronic CHF (congestive heart failure) Chronic Chronic Disease Mgmt/Transitional Care Chronic
[2017-11-28] MEDS: SERTRALINE HCL 50 MG TAB PO SCH (12:19)
[2017-11-28] MEDS: ATORVASTATIN CALCIUM 40 MG TAB PO SCH (12:20)
[2017-11-28] MEDS: POLYETHYLENE GLYCOL 3350 17 GM PKT PO PRN (12:21)
[2017-11-28 12:49] VITALS: BP 105/59
--- NOTE | 2017-11-28 13:29 | SOAPPROG ---
SOAP Progress Note Assessment/Plan: Assessment: 76 y/o male with a history of previous AAA repair, s/p aortobiiliac graft for failed previous stent 5/3 Epidural removed on Friday Urinary retention after epidural removed. Indwelling frye in place. Back on eliquis for a-fb S: C/o incisional pain. Has been getting out of bed and ambulating. O: Alert Afebrile VSS Mag low Chest: CTA bilaterally, no increase WOB Abdomen: soft, nontender, incision cdi +pedal and femoral pulses bilaterally Plan: Start flomax for urinary retention. D/c frye catheter. Remove R IJ catheter after mag protocol today. Dispo home likely today or tomorrow. 11/26/17 10:12 11/28/17 13:25 Pt eager to go home today. Stable from a surgery standpoint. Pain well controlled. Good bilateral femoral and pedal pulses. normoactive bowel sounds. Will need increased O2 at home. Pt typically uses 3-4L/min at home, but has been needing 6L during hospitalization. Will also need to be discharged with indwelling frye catheter. RN to provide education prior to leaving. Follow up with Dr. Armas, urologist for urinary retention. Follow up with Dr. Pemberton in one week. Objective: Vital Signs Temp Pulse Resp BP Pulse Ox 36.6 C 60 18 105/59 L 90 L 11/28/17 12:48 11/28/17 12:48 11/28/17 12:48 11/28/17 12:48 11/28/17 12:48 Laboratory Results 11/28/17 09:35 11/28/17 03:30 11/27/17 11/28/17 11/29/17 05:59 05:59 05:59 Intake Total 550 300 Output Total 2250 1125 Balance -1700 -825 PT 13.9 SEC (12.0-15.0) 11/20/17 07:20 INR 1.05 (0.83-1.16) 11/20/17 07:20 ICD10 Worksheet Patient Problems: Problems Problem Status Onset Abdominal aortic aneurysm Acute Acute respiratory failure Acute Bronchitis Acute Chronic obstructive pulmonary disease with acute exacerbation Acute Hematoma Acute Hypertension Acute Hypoxia Acute Atrial flutter Chronic CHF (congestive heart failure) Chronic Chronic Disease Mgmt/Transitional Care Chronic
--- NOTE | 2017-11-28 14:37 | PDIAF ---
- Diagnosis Diagnosis: s/p AAA repair, chronic respiratory failure, O2 dependent Code Status: Full Code - Medication Management Discharge Medications: Medications to Continue on Transfer Atorvastatin Calcium [Lipitor 80 mg] 80 mg PO DAILY@12 08/16/17 [Last Taken 09/07] Ipratropium/Albuterol [Duoneb (*)] 3 ml IH TID PRN 08/16/17 [Last Taken 05:15] Sertraline HCl [Zoloft 50mg (*)] 50 mg PO DAILY@12 08/16/17 [Last Taken 11/19/17 ] Apixaban [Eliquis] 5 mg PO BID #60 tab 08/23/17 [Last Taken 11/14/17] Albuterol [Proventil Inhaler HFA (*)] 1 - 2 puffs IH Q4H PRN 10/13/17 [Last Taken 11/20/17 05:15] Potassium Chloride 10 meq PO DAILY@10/13/17 [Last Taken 11/19/17] Torsemide 10 mg PO DAILY@12 10/13/17 [Last Taken 11/19/17] Carvedilol [Coreg (*)] 12.5 mg PO BIDMEAL #30 tab 10/14/17 [Last Taken 11/20/17 05:30] Lisinopril 5 mg PO DAILY #30 tablet 10/14/17 [Last Taken 11/19/17] Docusate Sodium [Colace 100 MG (*)] 100 mg PO HS 11/18/17 [Last Taken 11/19/17] Spironolactone [Aldactone 25 MG (*)] 25 mg PO DAILY 11/18/17 [Last Taken ] Aspirin [Aspirin 325 mg (*)] 325 mg PO DAILY tab 11/28/17 [Last Taken Unknown] Budesonide [Budesonide 0.5MG/2Ml Neb (*)] 0.5 mg IH BID ampul.neb 11/28/17 [ Last Taken Unknown] Carvedilol [Coreg (*)] 12.5 mg PO BID tab 11/28/17 [Last Taken Unknown] Polyethylene Glycol 3350 [Miralax 17 gm (*)] 17 gm PO DAILY PRN pkt 11/28/17 [ Last Taken Unknown] Sennosides/Docusate Sodium [Senokot-S] 1 - 2 tab PO BID tab 11/28/17 [Last Taken Unknown] oxyCODONE IR [Oxycodone Ir (*)] 5 - 10 mg PO Q3H PRN #30 tab 11/28/17 [Last Taken Unknown] Discharge Medications: Refer to the Discharge Home Medication list for PRN reason. PICC Care - Routine: N/A - Orders Services needed: Home Care, Registered Nurse, Physical Therapy, Occupational Therapy Home Care Face to Face: I certify that this patient was under my care and that I had the required [id number] encounter meeting the encounter requirements on the discharge day. My findings support the fact that the patient is homebound as defined in Home Care Face to Face Continued: CMS Chapter 7 Medicare Benefits Manual 30.1.1 , The condition of the patient is such that there exists a normal inability to leave home and consequently, leaving home would require a considerable and taxing effort. Isolation Type: None Diet Recommendation: no restrictions on diet Diet Texture: Regular Texture Diet Additional Instructions: Avoid heavy lifting for 6 weeks. You may shower, but do not soak in a tub or pool. Rx for oxycodone IR for pain. Take a stool softener, such as miralax for constipation. Follow up with Dr. Pemberton in our office in one week. Call with fever or increased pain. - Follow Up Care Current Providers and Referrals: Hollie Teran MD [Primary Care Provider] - Jordan Pemberton MD [Medical Doctor] - follow up in 2 weeks
--- NOTE | 2017-11-28 16:21 | ASDISCHSUM ---
Discharge Information Plan Status:Home with Home Health Medically Cleared to Leave:11/28/2017 Discharge Date:11/28/2017 04:00 PM CM D/C Disposition: ADT D/C Disposition:Home, Routine, Self-Care Projected Discharge Date:11/28/2017 11:00 AM Transportation at D/C: Discharge Delay Reason: Follow-Up Date:11/28/2017 11:00 AM Discharge Slot: Final Diagnosis: Placement Information Referral Type:*Home Health Care Services Referral ID:[id number] Provider Name:[facility] Address 1:[address] [place] [address] Address 2: City:[place] Selection Factors: State:[place] Patient Contact Information Contact Name:NGIHA Relationship: Address:[address] [place] [address] Work Phone: [facility] Alternate Phone: [facility]/Zip Code:[place] [address] Email: Financial Information Financial Class:Medicare Primary Plan Desc:MEDICARE INPATIENT Primary Plan Number:[id number] Secondary Plan Desc:[employer]ARP/MDR SUPPLEMENT Secondary Plan Number:[id number] Assessment Information [facility] Initial CM Assessment Living Arrangements What is your living Answers: With Spouse arrangement? Who do you live with? Type Of Residence What kind of residence do Answers: House you live in? Discharge Plan Comments Coordination Status Comments Notes: Patient is a 76yo male who has a hx of severe COPD, congestive heart failure, coronary artery disease with previous stenting, peripheral vascular disease, systemic hypertension, hyperlipidemia and fluid retention. Patient was admitted for an enlarging abdominal aortic aneurysm which needs surgical intervention. No therapies have been ordered at this time. Patient has been living independently with his in [place]. D/C plan TBD. CM will follow. Date Signed: 11/21/2017 09:54 AM Electronically Signed By:Maddie Calderon LCSW [facility] Progress Note CM Note CM Note Notes: 11/24/2017 Case Management Note Reviewed chart, pt transferred to today. PT is recommending home d/c. Pt is and was living independently prior to admission. Case Management d/c poc: Anticipating independent with follow up as directed. Case Management to follow. Date Signed: 11/24/2017 02:36 PM Electronically Signed By:Cait Pete RN [facility] CM Progress Note CM Note CM Note Notes: CM discussed case w/ [facility]AT [place]. CM met w/ pt and for dispo planning. would like to have ARIAN RN. is requesting for [facility]. Referral made to [facility] and they are able to accept. Anticipate d/c in 2-3 days. CM confirmed pts address and phone number. Pts PCP is Dr. Teran. CM to follow. Plan: [facility] ARORA Date Signed: 11/26/2017 03:57 PM Electronically Signed By:ARTUR Bradshaw Case Management Discharge Plan Note Case Management Discharge Discharge Order Complete? Answers: Yes Patient to Obtain Answers: via Family Medications Transportation Arranged Answers: Family/Friends EMTALA Complete Answers: No Case Management Transport Answers: No Form Complete Faxed Final Orders Answers: Yes Agency/Facility Transfer Answers: Yes Report Printed & Faxed to Receiving Agency Family Notified Answers: Yes Discharge Comments Notes: Pts case discussed in tx rounds. Pt is being discharged today. CM met w/ pt and for dispo planning. Pt and would like to have HC through [facility]. provided another home phone number (P#: [phone]). CM provided this to [facility]. CM provided LIAT Resendez w/ phone number to give report. CM available for changes. Plan: [facility], PT, OT, RN Date Signed: 11/28/2017 02:33 PM Electronically Signed By:ARTUR Bradshaw Intervention Information Intervention Type:*IM-Signed Date of Service:11/28/2017 03:02 PM Patient Type:Inpatient Staff Member:Petra Christianson Hours: Discipline: Severity: Comment:
== END 2017-11-28 16:00 | disposition home health service (06) | DRG 268 ==
LOC: F3E 05:37 → F2N 05:37 → F2W 11-24 10:14
PROVIDERS: ADMIT Surgery; ATTEND Surgery
PROC: 3E0S3BZ Introduction of Anesthetic Agent into Epidural Space, Percutaneous Approach (ICD-10-PCS; 2017-11-20)
PROC: 04R00JZ Replacement of Abdominal Aorta with Synthetic Substitute, Open Approach (ICD-10-PCS; principal; 2017-11-20 07:15)
PROC: 30233N1 Transfusion of Nonautologous Red Blood Cells into Peripheral Vein, Percutaneous Approach (ICD-10-PCS; 2017-11-23)
DX: I71.4 Abdominal aortic aneurysm, without rupture (principal); J95.2 Acute pulmonary insufficiency following nonthoracic surgery; I11.0 Hypertensive heart disease with heart failure; I50.43 Acute on chronic combined systolic (congestive) and diastolic (congestive) heart failure; K91.89 Other postprocedural complications and disorders of digestive system; D62 Acute posthemorrhagic anemia; N17.9 Acute kidney failure, unspecified; I42.2 Other hypertrophic cardiomyopathy; J96.11 Chronic respiratory failure with hypoxia; J44.1 Chronic obstructive pulmonary disease with (acute) exacerbation; G89.18 Other acute postprocedural pain; E86.1 Hypovolemia; I95.9 Hypotension, unspecified; I44.7 Left bundle-branch block, unspecified; I48.0 Paroxysmal atrial fibrillation; R33.9 Retention of urine, unspecified; E78.5 Hyperlipidemia, unspecified; I25.10 Atherosclerotic heart disease of native coronary artery without angina pectoris; Z87.891 Personal history of nicotine dependence; Z95.5 Presence of coronary angioplasty implant and graft; Z99.81 Dependence on supplemental oxygen; Z79.01 Long term (current) use of anticoagulants
CPT/HCPCS: 97116-GP; 97161-GP; 97166-GO; 97530-GP; 97535-GO; C1768; G8978-GP-CJ; G8979-GP-CI; G8980-GP-CI; G8987-GO-CJ; G8988-GO-CI; J0171; J0690; J1100; J1170; J1265; J1644; J1650; J1940; J2250; J2370; J2405; J2704; J2720; J2997; J3010; J3475; J7060; J7626; P9016; P9041

== ENCOUNTER → 2018-08-24 | Outpatient (CLI) | payer OTHER, MEDICARE | LOC: BHFA 13:15 | PROVIDERS: ATTEND Internal Medicine Cardiovascular Disease | DX: I25.119 Atherosclerotic heart disease of native coronary artery with unspecified angina pectoris (principal); I50.22 Chronic systolic (congestive) heart failure; J44.9 Chronic obstructive pulmonary disease, unspecified; R09.89 Other specified symptoms and signs involving the circulatory and respiratory systems; R06.02 Shortness of breath ==

== ENCOUNTER → 2019-01-18 | Outpatient (CLI) | payer OTHER, MEDICARE | LOC: BHFA 15:30 ==